=== PATIENT | female | born 1935 | race Caucasian/White ===

== ENCOUNTER 2016-03-02 10:27 | Observation (INO) | payer MEDICARE, OTHER, BC ==
[~2016-03-02] VITALS: Ht 165.1 cm; Wt 108.9 kg
[2016-03-02 12:21] LABS: BASO % 0.5 % (0.0-1.0); EOS # 0.1 K/mm3 (0.0-0.50); EOS % 1.8 % (0.0-3.0); LARGE UNSTAINED CELL # 0.1 K/mm3 (0.0-0.4); LARGE UNSTAINED CELL % 1.3 % (0.0-4.0); LYMPH # 2.2 K/mm3 (1.5-4.5); LYMPH % 32.8 % (24.0-44.0); MEAN CORPUSCULAR HEMOGLOBIN 27.6 pg (27.0-33.0); MEAN CORPUSCULAR HGB CONC 32.8 g/dl (32.0-36.5); MEAN CORPUSCULAR VOLUME 83.9 fl (80.0-96.0); MONO # 0.3 K/mm3 (0.0-0.8); MONO % 3.8 % (0.0-5.0); PLATELET COUNT, AUTOMATED 178 k/mm3 (150-450); RED CELL DISTRIBUTION WIDTH 13.9 % (11.5-14.5); WHITE BLOOD COUNT 6.6 K/mm3 (4.0-10.0)
[2016-03-02 12:27] LABS: ANION GAP 8 MEQ/L (8-16); BLOOD UREA NITROGEN 12 MG/DL (7-18); CALCIUM LEVEL 8.8 MG/DL (8.8-10.2); CARBON DIOXIDE LEVEL 31 MEQ/L (21-32); CHLORIDE LEVEL 106 MEQ/L (98-107); CREATININE FOR GFR 0.81 MG/DL (0.55-1.02); GLOMERULAR FILTRATION RATE > 60.0 (>32); GLUCOSE, FASTING 123 MG/DL (83-110); SODIUM LEVEL 145 MEQ/L (136-145)
[2016-03-02] MEDS ORDERED: ISOVUE-370 76% 100ML VIAL (Q9967) As Ordered ONE (12:56)
[2016-03-02 13:22] LABS: INR 1.19
--- NOTE | 2016-03-02 13:41 | REP ---
Clinical: Evaluate mass. Technique: Axial contrast enhanced images from above the iliac crest through the pubic symphysis with coronal and sagittal re-formations using 100 ml Isovue 370 intravenous contrast material. Findings: There is asymmetric heterogeneous enhancement of the left labia majora with complex appearance including small foci of gas and fat stranding suggesting an infectious process with gas-forming bacteria as well as phlegmonous changes with gas secondary to necrosis. There is no discrete drainable collection and an area of infectious/inflammatory change does not appear to extend into the vagina or uterus. Correlation with physical examination is recommended. Visualized portions of the small large bowel are unremarkable. The bladder appears normal. The uterus appears atrophic with small calcified myomatous changes. No pelvic fluid is appreciated. No significant adenopathy is identified. The surrounding musculoskeletal structures demonstrate symmetric age-related changes. Impression: Findings suggest an infectious/inflammatory process involving the left labia with small foci of gas raising the possibility of necrosis as well as phlegmon/abscess formation secondary to gas forming bacteria. No apparent extension into the vagina or uterus. No further acute pathology is appreciated. Signed by Samson Hood MD 03/02/2016 01:33 P
[2016-03-02] MEDS ORDERED: ASPI325T PO (15:21)
[2016-03-02] MEDS ORDERED: ENAL10TA10 PO (15:21)
[2016-03-02] MEDS ORDERED: PERC5TAB6 PO (15:21)
[2016-03-02] MEDS ORDERED: DRIS50002 PO (15:21)
[2016-03-02] MEDS ORDERED: TRAM50TA2 PO (15:21)
[2016-03-02] MEDS ORDERED: ATOR1TAB19 PO (15:21)
[2016-03-02] MEDS ORDERED: MIDAZOLAM INJ 2 MG/2 ML VIAL (J2250) As Ordered ONE (15:31)
[2016-03-02] MEDS ORDERED: fentaNYL 250 MCG/5 ML INJECTION (J3010) As Ordered ONE (15:32)
[2016-03-02] MEDS ORDERED: PROPOFOL 200 MG/20 ML VIAL As Ordered ONE (15:33)
[2016-03-02] MEDS ORDERED: LIDOCAINE 2% INJ 100 MG/5 ML SDV (FOR ANES.) As Ordered ONE (15:33)
[2016-03-02] MEDS ORDERED: ROCURONIUM BROMIDE 50 MG/5 ML VIAL As Ordered ONE (15:35)
--- NOTE | 2016-03-02 16:09 | EDDOCDS ---
Nurse's Notes [facility] Name: Chula Tadeo Age: 80 yrs Sex: Female : 1935 Arrival Date: 03/02/2016 Time: 10:27 Bed 7 Private MD: Diagnosis: Polyp of vulva-bleeding Presentation: 03/02 10:31 Presenting complaint: EMS states: Vaginal bleeding began last evening. Risk factors: mlb1 The patient reports no loss of conciousness prior to arrival. This patient has not had a hysterectomy. The patient began menopause more than five years ago. Adult Sepsis Screening: The patient does not have new or worsening altered mentation. Patient's respiratory rate is less than 22. Systolic blood pressure is greater than 100. Patient has a qSOFA score of 0- Negative Sepsis Screen. Suicide/Homicide risk assessment- the patient denies having any suicidal and/or homicidal ideations and does not present with any other emotional, behavioral or mental health complaints. Status: Patient is not a bmw service technician or dependent. Transition of care: patient was not received from another setting of care. 10:31 Acuity: MORIAH Level 3 mlb1 10:31 Method Of Arrival: Ambulance mlb1 Triage Assessment: 10:35 General: Appears in no apparent distress, obese, Behavior is appropriate for age, mlb1 cooperative. Pain: Denies pain. The patient is triaged at the bedside. See Assessment in Nurses Notes section of ED record. Neurological: No deficits noted. : Reports vaginal bleeding that is with clots moderate flow. Derm: Skin is pink, warm & dry. normal. Historical: - Allergies: no known allergies; - Home Meds: 1. enalapril-hydrochlorothiazide 10-25 mg oral tab 1 tab once daily (Last dose: 03/02/2016) 2. Lipitor 10 mg Oral tab 1 tab once daily 3. aspirin 325 mg Oral tab 2 tabs once daily (Last dose: 02/29/2016) 4. oxycodone-acetaminophen 5-325 mg Oral tab nightly 5. tramadol 50 mg Oral tab daily as needed - PMHx: Arthritis; Hypertension; High Cholesterol; Cancer, Breast - Left; - Social history: Smoking status: Patient states was never smoker of tobacco. No barriers to communication noted, The patient speaks fluent Pakistani, Speaks appropriately for age. - Family history: Not pertinent. - : The pt / caregiver states he / she is not on anticoagulants. Home medication list is obtained from the patient. - Exposure Risk Screening:: None identified. Screenin:58 Screening information is obtained from the patient. Fall risk: No risks identified. mlb1 Assistance ADL's: requires no assistance with activities of daily living. Abuse/DV Screen: The patient / caregiver reports he/she is: not in a situation that causes fear, pain or injury. Nutritional screening: No deficits noted. home support is adequate. 12:23 Advance Directives: Currently, there is a health care proxy, There is a living will, mlb1 but a copy is not available at this time. Assessment: 10:58 General: Appears in no apparent distress, Behavior is cooperative, pleasant. Pain: mlb1 Denies pain. Neurological: Level of Consciousness is awake, alert, Oriented to person, place, time. : Reports vaginal bleeding that is with clots moderate flow. Derm: Skin is pink, warm & dry. normal. 12:00 General: Appears in no apparent distress, comfortable, Behavior is appropriate for age, mlb1 cooperative. Pain: Denies pain. Neurological: No deficits noted. Derm: Skin is pink, warm & dry. normal. 12:23 General: Appears in no apparent distress, comfortable, Behavior is appropriate for age, mlb1 cooperative, pleasant, quiet. Pain: Denies pain. 13:14 General: Appears in no apparent distress, comfortable, Behavior is appropriate for age, mlb1 cooperative. Pain: Denies pain. Neurological: No deficits noted. 13:32 General: pt cleaned and wound dressing reinforced. Moderate bleeding noted. Clotting ttb noted. JUNIOR HIGH SCHOOL TEACHER aware. Primary RN aware. Pt resting on stretcher with family at bedside. NAD noted.. 14:30 General: Appears in no apparent distress, comfortable, Behavior is appropriate for age, mlb1 cooperative. Pain: Denies pain. Respiratory: Airway is patent Respiratory effort is even, unlabored. Derm: Skin is pink, warm & dry. normal. 14:51 General: Appears in no apparent distress, comfortable, Behavior is appropriate for age, mlb1 cooperative. Pain: Denies pain. Neurological: No deficits noted. Respiratory: Airway is patent Respiratory effort is even, unlabored. Derm: Skin is pink, warm & dry. normal. 14:58 General: Dr. Olsen at bedside. . kc3 15:30 General: Appears in no apparent distress, comfortable, Behavior is appropriate for age, kc3 cooperative. Pain: Denies pain. Neurological: Level of Consciousness is awake, alert, obeys commands, Oriented to person, place, time. Respiratory: Airway is patent Respiratory effort is even, unlabored. Derm: Skin is pink, warm & dry. Musculoskeletal: Circulation, motion, and sensation intact. 16:01 General: Appears in no apparent distress, comfortable, Behavior is appropriate for age, kc3 cooperative. Pain: Denies pain. Neurological: Level of Consciousness is awake, alert, obeys commands, Oriented to person, place, time. Respiratory: Airway is patent Respiratory effort is even, unlabored. Derm: Skin is pink, warm & dry. bleeding lesion noted to left vulvar. Musculoskeletal: Circulation, motion, and sensation intact. Vital Signs: 10:38 BP 159 / 75 RA Supine (auto/lg); Pulse 111 LA; Resp 18; Temp 97.9(O); Pulse Ox 96% on tk R/A; Weight 108.86 kg; Height 5 ft. 5 in. (165.10 cm); Pain 0/10; 13:33 BP 140 / 66; Pulse 109; Resp 20; Pulse Ox 98% on R/A; ttb 16:04 BP 126 / 64; Pulse 104; Resp 18; Temp 98.1(O); Pulse Ox 96% on R/A; Pain 0/10; kc3 10:38 Body Mass Index 39.94 (108.86 kg, 165.10 cm) tk Vitals: 10:58 Log In Time N/A - ambulance arrival. mlb1 ED Course: 10:28 Patient visited by Juanis Mohr, Kiln Remover. deg 10:28 Patient moved to Waiting deg 10:31 Patient visited by Estevan Pratt, RN. mlb1 10:31 Patient moved to 7 mlb1 10:34 Triage Initiated mlb1 10:40 Patient visited by Shilo Willoughby. tk 10:59 Patient visited by Estevan Pratt, DWIGHT. mlb1 10:59 The patient / caregiver is instructed regarding the plan of care and ED course. mlb1 Accompanied by Family Member, Patient has correct armband on for positive identification. Placed in gown. Bed in low position. Call light in reach. Side rails up X2. 10:59 Inserted saline lock: 20 gauge in right antecubital area and blood collected. The mlb1 patient tolerated the procedure well. No procedures done that require assistance. 12:00 Patient visited by Estevan Pratt RN. mlb1 12:03 [facility] le 12:07 Patient visited by Flower Prakash FNP. le 12:15 Type & Screen Sent. mlb1 12:15 BMP Sent. mlb1 12:15 CBC with Diff Sent. mlb1 12:24 Patient visited by Estevna Pratt, DWIGHT. mlb1 12:50 Patient visited by Solange Dempsey PCA. rs6 12:50 Pt greeted and oriented to ED. Patient advised of names of staff involved in care, rs6 location of call landa, wait times and NPO status. Linen changed. 12:59 PTT Sent. mlb1 12:59 PT/INR Sent. mlb1 13:14 Patient visited by Estevan Pratt RN. mlb1 13:38 Patient visited by Micaela Dao RN. ttb 13:48 CT Pelvis With Contrast Returned. EDMS 13:51 Patient name changed from Chula\S\\S\Surdo\S\ to Chula\S\ \S\Surdo. EDMS 13:54 [facility] Payment Agreement was scanned into [employer] and attached to record. jp5 14:51 Patient visited by Estevan Pratt RN. mlb1 14:52 Patient visited by Estevan Pratt, DWIGHT. mlb1 15:09 Melvin Olsen MD is Hospitalizing Provider. le 15:39 Admission Orders was scanned into [employer] and attached to record. deg Administered Medications: 13:32 Drug: NS 0.9% 1000 ml [sodium chloride 0.9 % intravenous solution] Route: IV; Rate: ttb bolus; Site: right antecubital; Order Results: Lab Order: CBC with Diff; SPEC'M 03/02/16 10:55 Test: WHITE BLOOD COUNT; Value: 6.6; Range: 4.0-10.0; Units: K/mm3; Status: F Test: RED BLOOD COUNT; Value: 6.53; Range: 4.00-5.40; Abnormal: Above high normal; Units: M/mm3; Status: F Test: HEMOGLOBIN; Value: 18.0; Range: 12.0-16.0; Abnormal: Above high normal; Units: g/dl; Status: F Test: HEMATOCRIT; Value: 54.8; Range: 36.0-47.0; Abnormal: Above high normal; Units: %; Status: F Test: MEAN CORPUSCULAR VOLUME; Value: 83.9; Range: 80.0-96.0; Units: fl; Status: F Test: MEAN CORPUSCULAR HEMOGLOBIN; Value: 27.6; Range: 27.0-33.0; Units: pg; Status: F Test: MEAN CORPUSCULAR HGB CONC; Value: 32.8; Range: 32.0-36.5; Units: g/dl; Status: F Test: RED CELL DISTRIBUTION WIDTH; Value: 13.9; Range: 11.5-14.5; Units: %; Status: F Test: PLATELET COUNT, AUTOMATED; Value: 178; Range: 150-450; Units: k/mm3; Status: F Test: NEUTROPHILS %; Value: 60.0; Range: 36.0-66.0; Units: %; Status: F Test: LYMPH %; Value: 32.8; Range: 24.0-44.0; Units: %; Status: F Test: MONO %; Value: 3.8; Range: 0.0-5.0; Units: %; Status: F Test: EOS %; Value: 1.8; Range: 0.0-3.0; Units: %; Status: F Test: BASO %; Value: 0.5; Range: 0.0-1.0; Units: %; Status: F Test: LARGE UNSTAINED CELL %; Value: 1.3; Range: 0.0-4.0; Units: %; Status: F Test: NEUTROPHILS #; Value: 4.0; Range: 1.8-7.7; Units: K/mm3; Status: F Test: LYMPH #; Value: 2.2; Range: 1.5-4.5; Units: K/mm3; Status: F Test: MONO #; Value: 0.3; Range: 0.0-0.8; Units: K/mm3; Status: F Test: EOS #; Value: 0.1; Range: 0.0-0.50; Units: K/mm3; Status: F Test: BASO #; Value: 0.0; Range: 0.0-0.2; Units: K/mm3; Status: F Test: LARGE UNSTAINED CELL #; Value: 0.1; Range: 0.0-0.4; Units: K/mm3; Status: F Lab Order: BMP; SPEC'03/02/16 10:55 Test: GLUCOSE, FASTING; Value: 123; Range: 83-110; Abnormal: Above high normal; Units: MG/DL; Status: F Test: BLOOD UREA NITROGEN; Value: 12; Range: 7-18; Units: MG/DL; Status: F Test: CREATININE FOR GFR; Value: 0.81; Range: 0.55-1.02; Units: MG/DL; Status: F Test: GLOMERULAR FILTRATION RATE; Value: > 60.0; Range: >32; Status: F Test: SODIUM LEVEL; Value: 145; Range: 136-145; Units: MEQ/L; Status: F Test: POTASSIUM SERUM; Value: 4.0; Range: 3.5-5.1; Units: MEQ/L; Status: F Test: CHLORIDE LEVEL; Value: 106; Range: 98-107; Units: MEQ/L; Status: F Test: CARBON DIOXIDE LEVEL; Value: 31; Range: 21-32; Units: MEQ/L; Status: F Test: ANION GAP; Value: 8; Range: 8-16; Units: MEQ/L; Status: F Test: CALCIUM LEVEL; Value: 8.8; Range: 8.8-10.2; Units: MG/DL; Status: F Test Note: ; Units are mL/min/1.73 m2 Chronic Kidney Disease Staging per NKF: Stage I & II GFR >=60 Normal to Mildly Decreased Stage III GFR 30-59 Moderately Decreased Stage IV GFR 15-29 Severely Decreased Stage V GFR <15 Very Little GFR Left ESRD GFR <15 on TACKER OFF Lab Order: Type & Screen; SPEC03/02/16 10:55 Test: BLOOD TYPE; Value: O POS; Status: F Test: AB SCREEN (INDIRECT ELIZABETH)GEL; Value: NEGATIVE; Status: F Lab Order: PT/INR; SPEC'03/02/16 12:58 Test: PROTHROMBIN TIME; Value: 15.2; Range: 12.3-14.5; Abnormal: Above high normal; Units: SECONDS; Status: F Test: INR; Value: 1.19; Status: F Test Note: ; THERAPUTIC HUMAN INR VALUES INDICATIONS NORMAL RANGES PROPHYLAXIS/TREATMENT OF: VENOUS THROMBOSIS 2.0-3.0 PULMONARY EMBOLISM 2.0-3.0 PREVENTION OF SYSTEMIC EMBOLISM FROM: TISSUE HEART VALVES 2.0-3.0 ACUTE MYOCARDIAL INFARCTION 2.0-3.0 VALVULAR HEART DISEASE 2.0-3.0 ATRIAL FIBRILLATION 2.0-3.0 MECHANICAL VALVES(HIGH RISK) 2.5-3.5 RECURRENT MYOCARDIAL INFARCTION 2.5-3.5 Lab Order: PTT; SPEC'M 03/02/16 12:58 Test: PARTIAL THROMBOPLASTIN TIME; Value: 30.8; Range: 26.6-37.1; Units: SECONDS; Status: F Radiology Order: CT Pelvis With Contrast Test: CT Pelvis With Contrast REASON FOR EXAMINATION: eval for mass/tumor (external bleeding lesions); Clinical: Evaluate mass.; ; Technique: Axial contrast enhanced images from above the iliac crest through the; pubic symphysis with coronal and sagittal re-formations using 100 ml Isovue 370; intravenous contrast material.; ; Findings:; There is asymmetric heterogeneous enhancement of the left labia majora with; complex appearance including small foci of gas and fat stranding suggesting an; infectious process with gas-forming bacteria as well as phlegmonous changes with; gas secondary to necrosis. There is no discrete drainable collection and an area; of infectious/inflammatory change does not appear to extend into the vagina or; uterus. Correlation with physical examination is recommended.; ; Visualized portions of the small large bowel are unremarkable. The bladder; appears normal. The uterus appears atrophic with small calcified myomatous; changes. No pelvic fluid is appreciated. No significant adenopathy is; identified. The surrounding musculoskeletal structures demonstrate symmetric; age-related changes.; ; Impression:; Findings suggest an infectious/inflammatory process involving the left labia with; small foci of gas raising the possibility of necrosis as well as phlegmon/abscess; formation secondary to gas forming bacteria. No apparent extension into the; vagina or uterus. No further acute pathology is appreciated.; ; ; Signed by; Samson Hood MD 03/02/2016 01:33 P; Outcome: 15:09 Decision to Hospitalize by Provider. patricia 16:04 Discharge Assessment: patient administered narcotics - no. The following High Risk kc3 Discharge criteria are identified: None. Admitted to OR accompanied by nurse, via stretcher, with chart. Condition: stable. CT Study completed. Property :Personal belongings accompany Pt. 16:08 Patient left the ED. kc3 Signatures: Dispatcher [employer] EDMS Juanis Mohr, Kiln Remover Unit deg Estevan Pratt RN RN mlb1 Flower Prakash, EDUCATIONAL PSYCHOLOGIST EDUCATIONAL PSYCHOLOGIST Micaela Monzon, RN RN ttb Solange Dempsey, FINE GRADE BULLDOZER OPERATOR FINE GRADE BULLDOZER OPERATOR rs6 Rom Mccormack Timothy tk Crane, Kelsi,RN RN kc3 Corrections: (The following items were deleted from the chart) 12:23 10:58 Advance Directives: Currently, there is no health care proxy. mlb1 mlb1 MTDD
--- NOTE | 2016-03-02 16:09 | EDDOCDS ---
Physician Documentation [facility] Name: Chula Tadeo Age: 80 yrs Sex: Female : 1935 Arrival Date: 03/02/2016 Time: 10:27 Bed 7 Private MD: Disposition: 03/02/16 15:09 Hospitalization ordered by Melvin Olsen for Observation. Preliminary diagnosis is Polyp of vulva - bleeding. - Bed requested for Admit. - Status is Observation. kc3 - Condition is Stable. - Problem is new. - Symptoms are unchanged. Historical: - Allergies: no known allergies; - Home Meds: 1. enalapril-hydrochlorothiazide 10-25 mg oral tab 1 tab once daily (Last dose: 03/02/2016) 2. Lipitor 10 mg Oral tab 1 tab once daily 3. aspirin 325 mg Oral tab 2 tabs once daily (Last dose: 02/29/2016) 4. oxycodone-acetaminophen 5-325 mg Oral tab nightly 5. tramadol 50 mg Oral tab daily as needed - PMHx: Arthritis; Hypertension; High Cholesterol; Cancer, Breast - Left; - Social history: Smoking status: Patient states was never smoker of tobacco. No barriers to communication noted, The patient speaks fluent Belarusian, Speaks appropriately for age. - Family history: Not pertinent. - : The pt / caregiver states he / she is not on anticoagulants. Home medication list is obtained from the patient. - Exposure Risk Screening:: None identified. Vital Signs: 03/02 10:38 BP 159 / 75 RA Supine (auto/lg); Pulse 111 LA; Resp 18; Temp 97.9(O); Pulse Ox 96% on tk R/A; Weight 108.86 kg / 240 lbs; Height 5 ft. 5 in. (165.10 cm); Pain 0/10; 13:33 BP 140 / 66; Pulse 109; Resp 20; Pulse Ox 98% on R/A; ttb 16:04 BP 126 / 64; Pulse 104; Resp 18; Temp 98.1(O); Pulse Ox 96% on R/A; Pain 0/10; kc3 10:38 Body Mass Index 39.94 (108.86 kg, 165.10 cm) tk MDM: 12:13 Set up pelvic ordered. le 12:14 CBC with Diff Ordered. EDMS 12:14 BMP Ordered. EDMS 12:14 Type & Screen Ordered. EDMS 12:51 IV Saline Lock ordered. le 12:51 CBC with Diff Reviewed. le 12:51 BMP Reviewed. le 12:51 Type & Screen Reviewed. le 12:52 PT/INR Ordered. EDMS 12:52 PTT Ordered. EDMS 12:52 CT Pelvis With Contrast Ordered. EDMS 12:52 NS 0.9% 1000 ml IV at bolus once ordered. le 13:54 [facility] Payment Agreement was scanned into [employer] and attached to record. jp5 13:54 Financial registration complete. jp5 14:05 PT/INR Reviewed. le 14:05 Type & Screen Reviewed. le 14:05 PTT Reviewed. le 14:05 CT Pelvis With Contrast Reviewed. le 14:22 BED REQUEST+ADM ordered. EDMS 15:39 Admission Orders was scanned into [employer] and attached to record. deg Administered Medications: 13:32 Drug: NS 0.9% 1000 ml [sodium chloride 0.9 % intravenous solution] Route: IV; Rate: ttb bolus; Site: right antecubital; Signatures: Dispatcher [employer] EDMS Juanis Mohr, Grout Pump Operator Unit deg Estevan Pratt RN RN mlb1 Flower Prakash, REHEATER REHEATER Rom Castelan jp5 Leta Solis,RN RN kc3 Micaela Dao RN ttb The chart was reviewed and I authenticate all verbal orders and agree with the evaluation and treatment provided.Attachments: 13:54 [facility] Payment Agreement jp5 15:39 Admission Orders deg MTDD
[2016-03-02] MEDS ORDERED: LIDOCAINE 1% SDV INJ 30 ML VIAL As Ordered ONE (16:44)
[2016-03-02] MEDS ORDERED: ceFAZolin 2 GM/D5W 50 ML IV BAG (J0690) As Ordered ONE (17:00)
[2016-03-02] MEDS ORDERED: ONDANSETRON 4MG/2ML VIAL (J2405) As Ordered ONE (17:11)
[2016-03-02] MEDS ORDERED: LIDOCAINE 1% SDV INJ 30 ML VIAL SC ONE (17:35)
[2016-03-02] MEDS ORDERED: fentaNYL 100 MCG/2 ML INJECTION (J3010) IV PRN (17:45)
[2016-03-02] MEDS ORDERED: LR 1,000 ML IV SCH (17:45)
[2016-03-02] MEDS ORDERED: ONDANSETRON 4MG/2ML VIAL (J2405) IV PRN (17:45)
[2016-03-02] MEDS ORDERED: MORPHINE 2 MG/ML 1ML SYRINGE IV PRN (17:45)
[2016-03-02] MEDS ORDERED: PERCOCET 5MG/325MG TAB PO PRN (18:00)
[2016-03-02 18:30] VITALS: BP 133/75
[2016-03-02 19:00] VITALS: BP 144/80
[2016-03-02] MEDS: LR 1,000 ML IV SCH (19:00)
[2016-03-02 20:00] VITALS: BP 125/67
[2016-03-02 21:00] VITALS: BP 135/63
[2016-03-02] MEDS ORDERED: ATORVASTATIN 10 MG TAB PO SCH (21:00)
[2016-03-02 22:00] VITALS: BP 131/68
[2016-03-02 23:00] VITALS: BP 125/63
[2016-03-03 02:00] VITALS: BP 114/69
[2016-03-03] MEDS: LR 1,000 ML IV SCH ×2 (03:00→11:00)
[2016-03-03 06:00] VITALS: BP 121/68
--- NOTE | 2016-03-03 07:01 | RO ---
DATE OF PROCEDURE: 03/02/2016 PREPROCEDURE DIAGNOSIS: Vulvar mass with hemorrhage. POSTPROCEDURE DIAGNOSIS: Vulvar mass with hemorrhage. PROCEDURE: Excision of vulvar mass. SURGEON: Dr. Melvin Olsen HOGSHEAD PACKER: ANESTHESIA: Local with sedation. ESTIMATED BLOOD LOSS: Minimal. FINDINGS: 1.5 cm exophytic left labia majora mass with heavy bleeding coming from the mass. Upon further inspection of the inner labia and vagina, there were numerous varicose veins scattered throughout the area. DESCRIPTION OF PROCEDURE: The patient was taken to the operating room where IV sedation was given. She was prepped and draped in sterile fashion in the supine position with her legs bent. The area of the mass was injected with 15 mL of 1% lidocaine. An Allis clamp was used to grasp the mass at its base. The scalpel was used to excise an elliptical area of skin around the mass down through the dermis. The mass was removed in its entirety. Interrupted sutures of #3-0 Vicryl were used to close the defect. Good hemostasis was noted. A Pitt catheter was placed. Sponge, needle and instrument counts were correct.
[2016-03-03] MEDS ORDERED: traMADol 50 MG TAB PO SCH (09:00)
[2016-03-03] MEDS ORDERED: hydroCHLOROthiazide 25 MG TAB PO SCH (09:00)
[2016-03-03] MEDS ORDERED: ENALAPRIL MALEATE 10 MG TAB PO SCH (09:00)
[2016-03-03 09:57] VITALS: BP 115/70
--- NOTE | 2016-03-04 17:09 | EDDOCDS ---
Physician Documentation [facility] Name: Chula Tadeo Age: 80 yrs Sex: Female : 1935 Arrival Date: 03/02/2016 Time: 10:27 Bed 7 Private MD: Disposition: 03/02/16 15:09 Hospitalization ordered by Melvin Olsen for Observation. Preliminary diagnosis is Polyp of vulva - bleeding. - Bed requested for Admit. - Status is Observation. kc3 - Condition is Stable. - Problem is new. - Symptoms are unchanged. Historical: - Allergies: no known allergies; - Home Meds: 1. enalapril-hydrochlorothiazide 10-25 mg oral tab 1 tab once daily (Last dose: 03/02/2016) 2. Lipitor 10 mg Oral tab 1 tab once daily 3. aspirin 325 mg Oral tab 2 tabs once daily (Last dose: 02/29/2016) 4. oxycodone-acetaminophen 5-325 mg Oral tab nightly 5. tramadol 50 mg Oral tab daily as needed - PMHx: Arthritis; Hypertension; High Cholesterol; Cancer, Breast - Left; - Social history: Smoking status: Patient states was never smoker of tobacco. No barriers to communication noted, The patient speaks fluent Spanish, Speaks appropriately for age. - Family history: Not pertinent. - : The pt / caregiver states he / she is not on anticoagulants. Home medication list is obtained from the patient. - Exposure Risk Screening:: None identified. Vital Signs: 03/02 10:38 BP 159 / 75 RA Supine (auto/lg); Pulse 111 LA; Resp 18; Temp 97.9(O); Pulse Ox 96% on tk R/A; Weight 108.86 kg / 240 lbs; Height 5 ft. 5 in. (165.10 cm); Pain 0/10; 13:33 BP 140 / 66; Pulse 109; Resp 20; Pulse Ox 98% on R/A; ttb 16:04 BP 126 / 64; Pulse 104; Resp 18; Temp 98.1(O); Pulse Ox 96% on R/A; Pain 0/10; kc3 10:38 Body Mass Index 39.94 (108.86 kg, 165.10 cm) tk MDM: 12:13 Set up pelvic ordered. le 12:14 CBC with Diff Ordered. EDMS 12:14 BMP Ordered. EDMS 12:14 Type & Screen Ordered. EDMS 12:51 IV Saline Lock ordered. le 12:51 CBC with Diff Reviewed. le 12:51 BMP Reviewed. le 12:51 Type & Screen Reviewed. le 12:52 PT/INR Ordered. EDMS 12:52 PTT Ordered. EDMS 12:52 CT Pelvis With Contrast Ordered. EDMS 12:52 NS 0.9% 1000 ml IV at bolus once ordered. le 13:54 [facility] Payment Agreement was scanned into [email or web address] and attached to record. jp5 13:54 Financial registration complete. jp5 14:05 PT/INR Reviewed. le 14:05 Type & Screen Reviewed. le 14:05 PTT Reviewed. le 14:05 CT Pelvis With Contrast Reviewed. le 14:22 BED REQUEST+ADM ordered. EDMS 15:39 Admission Orders was scanned into [email or web address] and attached to record. deg 22:42 T-Sheet-- Draft Copy was scanned into [email or web address] and attached to record. klr Administered Medications: 13:32 Drug: NS 0.9% 1000 ml [sodium chloride 0.9 % intravenous solution] Route: IV; Rate: ttb bolus; Site: right antecubital; Signatures: Dispatcher [employer] EDMS Juanis Mohr, Die Inspector Unit deg Estevan Pratt, RN RN mlb1 Flower Prakash, AGILE SCRUM COACH AGILE SCRUM COACH Rom Castelan jp5 Leta Solis,RN RN kc3 Yaneli Malone Teresa RN ttb The chart was reviewed and I authenticate all verbal orders and agree with the evaluation and treatment provided.Attachments: 13:54 [facility] Payment Agreement [facility] 15:39 Admission Orders deg 22:42 T-Sheet-- Draft Copy klr Chart Complete MTDD
--- NOTE | 2016-03-04 17:09 | EDDOCDS ---
Physician Documentation [facility] Name: Chula Tadeo Age: 80 yrs Sex: Female : 1935 Arrival Date: 03/02/2016 Time: 10:27 Bed 7 Private MD: Disposition: 03/02/16 15:09 Hospitalization ordered by Melvin Olsen for Observation. Preliminary diagnosis is Polyp of vulva - bleeding. - Bed requested for Admit. - Status is Observation. kc3 - Condition is Stable. - Problem is new. - Symptoms are unchanged. Historical: - Allergies: no known allergies; - Home Meds: 1. enalapril-hydrochlorothiazide 10-25 mg oral tab 1 tab once daily (Last dose: 03/02/2016) 2. Lipitor 10 mg Oral tab 1 tab once daily 3. aspirin 325 mg Oral tab 2 tabs once daily (Last dose: 02/29/2016) 4. oxycodone-acetaminophen 5-325 mg Oral tab nightly 5. tramadol 50 mg Oral tab daily as needed - PMHx: Arthritis; Hypertension; High Cholesterol; Cancer, Breast - Left; - Social history: Smoking status: Patient states was never smoker of tobacco. No barriers to communication noted, The patient speaks fluent Amharic, Speaks appropriately for age. - Family history: Not pertinent. - : The pt / caregiver states he / she is not on anticoagulants. Home medication list is obtained from the patient. - Exposure Risk Screening:: None identified. Vital Signs: 03/02 10:38 BP 159 / 75 RA Supine (auto/lg); Pulse 111 LA; Resp 18; Temp 97.9(O); Pulse Ox 96% on tk R/A; Weight 108.86 kg / 240 lbs; Height 5 ft. 5 in. (165.10 cm); Pain 0/10; 13:33 BP 140 / 66; Pulse 109; Resp 20; Pulse Ox 98% on R/A; ttb 16:04 BP 126 / 64; Pulse 104; Resp 18; Temp 98.1(O); Pulse Ox 96% on R/A; Pain 0/10; kc3 10:38 Body Mass Index 39.94 (108.86 kg, 165.10 cm) tk MDM: 12:13 Set up pelvic ordered. le 12:14 CBC with Diff Ordered. EDMS 12:14 BMP Ordered. EDMS 12:14 Type & Screen Ordered. EDMS 12:51 IV Saline Lock ordered. le 12:51 CBC with Diff Reviewed. le 12:51 BMP Reviewed. le 12:51 Type & Screen Reviewed. le 12:52 PT/INR Ordered. EDMS 12:52 PTT Ordered. EDMS 12:52 CT Pelvis With Contrast Ordered. EDMS 12:52 NS 0.9% 1000 ml IV at bolus once ordered. le 13:54 [facility] Payment Agreement was scanned into [employer] and attached to record. jp5 13:54 Financial registration complete. jp5 14:05 PT/INR Reviewed. le 14:05 Type & Screen Reviewed. le 14:05 PTT Reviewed. le 14:05 CT Pelvis With Contrast Reviewed. le 14:22 BED REQUEST+ADM ordered. EDMS 15:39 Admission Orders was scanned into [employer] and attached to record. deg 22:42 T-Sheet-- Draft Copy was scanned into [employer] and attached to record. klr Administered Medications: 13:32 Drug: NS 0.9% 1000 ml [sodium chloride 0.9 % intravenous solution] Route: IV; Rate: ttb bolus; Site: right antecubital; Signatures: Dispatcher [employer] EDMS Juanis Mohr, Drill Doctor Unit deg Estevan Pratt, RN RN mlb1 Flower Prakash, EXECUTIVE WELLNESS PROGRAMS DIRECTOR EXECUTIVE WELLNESS PROGRAMS DIRECTOR Rom Castelan jp5 Leta Solis,RN RN kc3 Yaneli Malone Teresa RN ttb The chart was reviewed and I authenticate all verbal orders and agree with the evaluation and treatment provided.Attachments: 13:54 [facility] Payment Agreement [facility] 15:39 Admission Orders deg 22:42 T-Sheet-- Draft Copy klr Chart Complete MTDD
--- NOTE | 2016-03-04 17:09 | EDDOCDS ---
Nurse's Notes [facility] Name: Chula Tadeo Age: 80 yrs Sex: Female : 1935 Arrival Date: 03/02/2016 Time: 10:27 Bed 7 Private MD: Diagnosis: Polyp of vulva-bleeding Presentation: 03/02 10:31 Presenting complaint: EMS states: Vaginal bleeding began last evening. Risk factors: mlb1 The patient reports no loss of conciousness prior to arrival. This patient has not had a hysterectomy. The patient began menopause more than five years ago. Adult Sepsis Screening: The patient does not have new or worsening altered mentation. Patient's respiratory rate is less than 22. Systolic blood pressure is greater than 100. Patient has a qSOFA score of 0- Negative Sepsis Screen. Suicide/Homicide risk assessment- the patient denies having any suicidal and/or homicidal ideations and does not present with any other emotional, behavioral or mental health complaints. Status: Patient is not a media services specialist or dependent. Transition of care: patient was not received from another setting of care. 10:31 Acuity: MORIAH Level 3 mlb1 10:31 Method Of Arrival: Ambulance mlb1 Triage Assessment: 10:35 General: Appears in no apparent distress, obese, Behavior is appropriate for age, mlb1 cooperative. Pain: Denies pain. The patient is triaged at the bedside. See Assessment in Nurses Notes section of ED record. Neurological: No deficits noted. : Reports vaginal bleeding that is with clots moderate flow. Derm: Skin is pink, warm & dry. normal. Historical: - Allergies: no known allergies; - Home Meds: 1. enalapril-hydrochlorothiazide 10-25 mg oral tab 1 tab once daily (Last dose: 03/02/2016) 2. Lipitor 10 mg Oral tab 1 tab once daily 3. aspirin 325 mg Oral tab 2 tabs once daily (Last dose: 02/29/2016) 4. oxycodone-acetaminophen 5-325 mg Oral tab nightly 5. tramadol 50 mg Oral tab daily as needed - PMHx: Arthritis; Hypertension; High Cholesterol; Cancer, Breast - Left; - Social history: Smoking status: Patient states was never smoker of tobacco. No barriers to communication noted, The patient speaks fluent S[place]omean, Speaks appropriately for age. - Family history: Not pertinent. - : The pt / caregiver states he / she is not on anticoagulants. Home medication list is obtained from the patient. - Exposure Risk Screening:: None identified. Screenin:58 Screening information is obtained from the patient. Fall risk: No risks identified. mlb1 Assistance ADL's: requires no assistance with activities of daily living. Abuse/DV Screen: The patient / caregiver reports he/she is: not in a situation that causes fear, pain or injury. Nutritional screening: No deficits noted. home support is adequate. 12:23 Advance Directives: Currently, there is a health care proxy, There is a living will, mlb1 but a copy is not available at this time. Assessment: 10:58 General: Appears in no apparent distress, Behavior is cooperative, pleasant. Pain: mlb1 Denies pain. Neurological: Level of Consciousness is awake, alert, Oriented to person, place, time. : Reports vaginal bleeding that is with clots moderate flow. Derm: Skin is pink, warm & dry. normal. 12:00 General: Appears in no apparent distress, comfortable, Behavior is appropriate for age, mlb1 cooperative. Pain: Denies pain. Neurological: No deficits noted. Derm: Skin is pink, warm & dry. normal. 12:23 General: Appears in no apparent distress, comfortable, Behavior is appropriate for age, mlb1 cooperative, pleasant, quiet. Pain: Denies pain. 13:14 General: Appears in no apparent distress, comfortable, Behavior is appropriate for age, mlb1 cooperative. Pain: Denies pain. Neurological: No deficits noted. 13:32 General: pt cleaned and wound dressing reinforced. Moderate bleeding noted. Clotting ttb noted. CAREER SERVICES OFFICER aware. Primary RN aware. Pt resting on stretcher with family at bedside. NAD noted.. 14:30 General: Appears in no apparent distress, comfortable, Behavior is appropriate for age, mlb1 cooperative. Pain: Denies pain. Respiratory: Airway is patent Respiratory effort is even, unlabored. Derm: Skin is pink, warm & dry. normal. 14:51 General: Appears in no apparent distress, comfortable, Behavior is appropriate for age, mlb1 cooperative. Pain: Denies pain. Neurological: No deficits noted. Respiratory: Airway is patent Respiratory effort is even, unlabored. Derm: Skin is pink, warm & dry. normal. 14:58 General: Dr. Olsen at bedside. . kc3 15:30 General: Appears in no apparent distress, comfortable, Behavior is appropriate for age, kc3 cooperative. Pain: Denies pain. Neurological: Level of Consciousness is awake, alert, obeys commands, Oriented to person, place, time. Respiratory: Airway is patent Respiratory effort is even, unlabored. Derm: Skin is pink, warm & dry. Musculoskeletal: Circulation, motion, and sensation intact. 16:01 General: Appears in no apparent distress, comfortable, Behavior is appropriate for age, kc3 cooperative. Pain: Denies pain. Neurological: Level of Consciousness is awake, alert, obeys commands, Oriented to person, place, time. Respiratory: Airway is patent Respiratory effort is even, unlabored. Derm: Skin is pink, warm & dry. bleeding lesion noted to left vulvar. Musculoskeletal: Circulation, motion, and sensation intact. Vital Signs: 10:38 BP 159 / 75 RA Supine (auto/lg); Pulse 111 LA; Resp 18; Temp 97.9(O); Pulse Ox 96% on tk R/A; Weight 108.86 kg; Height 5 ft. 5 in. (165.10 cm); Pain 0/10; 13:33 BP 140 / 66; Pulse 109; Resp 20; Pulse Ox 98% on R/A; ttb 16:04 BP 126 / 64; Pulse 104; Resp 18; Temp 98.1(O); Pulse Ox 96% on R/A; Pain 0/10; kc3 10:38 Body Mass Index 39.94 (108.86 kg, 165.10 cm) tk Vitals: 10:58 Log In Time N/A - ambulance arrival. mlb1 ED Course: 10:28 Patient visited by Juanis Mohr, Sock Lining Examiner. deg 10:28 Patient moved to Waiting deg 10:31 Patient visited by Estevan Pratt, RN. mlb1 10:31 Patient moved to 7 mlb1 10:34 Triage Initiated mlb1 10:40 Patient visited by Shilo Willoughby. tk 10:59 Patient visited by Estevan Pratt, DWIGHT. mlb1 10:59 The patient / caregiver is instructed regarding the plan of care and ED course. mlb1 Accompanied by Family Member, Patient has correct armband on for positive identification. Placed in gown. Bed in low position. Call light in reach. Side rails up X2. 10:59 Inserted saline lock: 20 gauge in right antecubital area and blood collected. The mlb1 patient tolerated the procedure well. No procedures done that require assistance. 12:00 Patient visited by Estevan Pratt RN. mlb1 12:03 [facility] le 12:07 Patient visited by Flower Prakash FNP. le 12:15 Type & Screen Sent. mlb1 12:15 BMP Sent. mlb1 12:15 CBC with Diff Sent. mlb1 12:24 Patient visited by Estevan Pratt, DWIGHT. mlb1 12:50 Patient visited by Solange Dempsey PCA. rs6 12:50 Pt greeted and oriented to ED. Patient advised of names of staff involved in care, rs6 location of call landa, wait times and NPO status. Linen changed. 12:59 PTT Sent. mlb1 12:59 PT/INR Sent. mlb1 13:14 Patient visited by Estevan Pratt RN. mlb1 13:38 Patient visited by Micaela Dao RN. ttb 13:48 CT Pelvis With Contrast Returned. EDMS 13:51 Patient name changed from Chula\S\\S\Surdo\S\ to Chula\S\ \S\Surdo. EDMS 13:54 [facility] [place] was scanned into [employer] and attached to record. jp5 14:51 Patient visited by Estevan Pratt RN. mlb1 14:52 Patient visited by Estevan Pratt, DWIGTH. mlb1 15:09 Melvin Olsen MD is Hospitalizing Provider. le 15:39 Admission Orders was scanned into [employer] and attached to record. deg 22:42 T-Sheet-- Draft Copy was scanned into [employer] and attached to record. klr Administered Medications: 13:32 Drug: NS 0.9% 1000 ml [sodium chloride 0.9 % intravenous solution] Route: IV; Rate: ttb bolus; Site: right antecubital; Order Results: Lab Order: CBC with Diff; SPEC'M 03/02/16 10:55 Test: WHITE BLOOD COUNT; Value: 6.6; Range: 4.0-10.0; Units: K/mm3; Status: F Test: RED BLOOD COUNT; Value: 6.53; Range: 4.00-5.40; Abnormal: Above high normal; Units: M/mm3; Status: F Test: HEMOGLOBIN; Value: 18.0; Range: 12.0-16.0; Abnormal: Above high normal; Units: g/dl; Status: F Test: HEMATOCRIT; Value: 54.8; Range: 36.0-47.0; Abnormal: Above high normal; Units: %; Status: F Test: MEAN CORPUSCULAR VOLUME; Value: 83.9; Range: 80.0-96.0; Units: fl; Status: F Test: MEAN CORPUSCULAR HEMOGLOBIN; Value: 27.6; Range: 27.0-33.0; Units: pg; Status: F Test: MEAN CORPUSCULAR HGB CONC; Value: 32.8; Range: 32.0-36.5; Units: g/dl; Status: F Test: RED CELL DISTRIBUTION WIDTH; Value: 13.9; Range: 11.5-14.5; Units: %; Status: F Test: PLATELET COUNT, AUTOMATED; Value: 178; Range: 150-450; Units: k/mm3; Status: F Test: NEUTROPHILS %; Value: 60.0; Range: 36.0-66.0; Units: %; Status: F Test: LYMPH %; Value: 32.8; Range: 24.0-44.0; Units: %; Status: F Test: MONO %; Value: 3.8; Range: 0.0-5.0; Units: %; Status: F Test: EOS %; Value: 1.8; Range: 0.0-3.0; Units: %; Status: F Test: BASO %; Value: 0.5; Range: 0.0-1.0; Units: %; Status: F Test: LARGE UNSTAINED CELL %; Value: 1.3; Range: 0.0-4.0; Units: %; Status: F Test: NEUTROPHILS #; Value: 4.0; Range: 1.8-7.7; Units: K/mm3; Status: F Test: LYMPH #; Value: 2.2; Range: 1.5-4.5; Units: K/mm3; Status: F Test: MONO #; Value: 0.3; Range: 0.0-0.8; Units: K/mm3; Status: F Test: EOS #; Value: 0.1; Range: 0.0-0.50; Units: K/mm3; Status: F Test: BASO #; Value: 0.0; Range: 0.0-0.2; Units: K/mm3; Status: F Test: LARGE UNSTAINED CELL #; Value: 0.1; Range: 0.0-0.4; Units: K/mm3; Status: F Lab Order: BMP; SPEC'M 03/02/16 10:55 Test: GLUCOSE, FASTING; Value: 123; Range: 83-110; Abnormal: Above high normal; Units: MG/DL; Status: F Test: BLOOD UREA NITROGEN; Value: 12; Range: 7-18; Units: MG/DL; Status: F Test: CREATININE FOR GFR; Value: 0.81; Range: 0.55-1.02; Units: MG/DL; Status: F Test: GLOMERULAR FILTRATION RATE; Value: > 60.0; Range: >32; Status: F Test: SODIUM LEVEL; Value: 145; Range: 136-145; Units: MEQ/L; Status: F Test: POTASSIUM SERUM; Value: 4.0; Range: 3.5-5.1; Units: MEQ/L; Status: F Test: CHLORIDE LEVEL; Value: 106; Range: 98-107; Units: MEQ/L; Status: F Test: CARBON DIOXIDE LEVEL; Value: 31; Range: 21-32; Units: MEQ/L; Status: F Test: ANION GAP; Value: 8; Range: 8-16; Units: MEQ/L; Status: F Test: CALCIUM LEVEL; Value: 8.8; Range: 8.8-10.2; Units: MG/DL; Status: F Test Note: ; Units are mL/min/1.73 m2 Chronic Kidney Disease Staging per NKF: Stage I & II GFR >=60 Normal to Mildly Decreased Stage III GFR 30-59 Moderately Decreased Stage IV GFR 15-29 Severely Decreased Stage V GFR <15 Very Little GFR Left ESRD GFR <15 on FOUNDRY PATTERNMAKER Lab Order: Type & Screen; SPEC'M 03/02/16 10:55 Test: BLOOD TYPE; Value: O POS; Status: F Test: AB SCREEN (INDIRECT ELIZABETH)GEL; Value: NEGATIVE; Status: F Lab Order: PT/INR; SPEC'M 03/02/16 12:58 Test: PROTHROMBIN TIME; Value: 15.2; Range: 12.3-14.5; Abnormal: Above high normal; Units: SECONDS; Status: F Test: INR; Value: 1.19; Status: F Test Note: ; THERAPUTIC HUMAN INR VALUES INDICATIONS NORMAL RANGES PROPHYLAXIS/TREATMENT OF: VENOUS THROMBOSIS 2.0-3.0 PULMONARY EMBOLISM 2.0-3.0 PREVENTION OF SYSTEMIC EMBOLISM FROM: TISSUE HEART VALVES 2.0-3.0 ACUTE MYOCARDIAL INFARCTION 2.0-3.0 VALVULAR HEART DISEASE 2.0-3.0 ATRIAL FIBRILLATION 2.0-3.0 MECHANICAL VALVES(HIGH RISK) 2.5-3.5 RECURRENT MYOCARDIAL INFARCTION 2.5-3.5 Lab Order: PTT; SPEC'M 03/02/16 12:58 Test: PARTIAL THROMBOPLASTIN TIME; Value: 30.8; Range: 26.6-37.1; Units: SECONDS; Status: F Radiology Order: CT Pelvis With Contrast Test: CT Pelvis With Contrast REASON FOR EXAMINATION: eval for mass/tumor (external bleeding lesions); Clinical: Evaluate mass.; ; Technique: Axial contrast enhanced images from above the iliac crest through the; pubic symphysis with coronal and sagittal re-formations using 100 ml Isovue 370; intravenous contrast material.; ; Findings:; There is asymmetric heterogeneous enhancement of the left labia majora with; complex appearance including small foci of gas and fat stranding suggesting an; infectious process with gas-forming bacteria as well as phlegmonous changes with; gas secondary to necrosis. There is no discrete drainable collection and an area; of infectious/inflammatory change does not appear to extend into the vagina or; uterus. Correlation with physical examination is recommended.; ; Visualized portions of the small large bowel are unremarkable. The bladder; appears normal. The uterus appears atrophic with small calcified myomatous; changes. No pelvic fluid is appreciated. No significant adenopathy is; identified. The surrounding musculoskeletal structures demonstrate symmetric; age-related changes.; ; Impression:; Findings suggest an infectious/inflammatory process involving the left labia with; small foci of gas raising the possibility of necrosis as well as phlegmon/abscess; formation secondary to gas forming bacteria. No apparent extension into the; vagina or uterus. No further acute pathology is appreciated.; ; ; Signed by; Samson Hood MD 03/02/2016 01:33 P; Outcome: 15:09 Decision to Hospitalize by Provider. patricia 16:04 Discharge Assessment: patient administered narcotics - no. The following High Risk kc3 Discharge criteria are identified: None. Admitted to OR accompanied by nurse, via stretcher, with chart. Condition: stable. CT Study completed. Property :Personal belongings accompany Pt. 16:08 Patient left the ED. kc3 Signatures: Dispatcher [employer] EDMS Juanis Mohr, Sock Lining Examiner Unit deg Estevan Pratt RN RN mlb1 Flower Prakash, ARMED CUSTOM PROTECTION OFFICER ARMED CUSTOM PROTECTION OFFICER Micaela Monzon, RN RN ttb Solange Dempsey, CAROLIN AUTOMATION MECHANIC rs6 Rom Mccormack Timothy tk Crane, Kelsi,RN RN kc3 Yaneli Malone Corrections: (The following items were deleted from the chart) 12:23 10:58 Advance Directives: Currently, there is no health care proxy. mlb1 mlb1 Chart Complete MTDD
== END 2016-03-03 15:55 | disposition home or self-care (01) ==
LOC: M ED 10:27 → M SDC 15:20 → M MS5PR 18:10 → M SDC 18:10 → M MS5PR 18:34 → M SDC 03-03 12:55
PROVIDERS: ADMIT Specialist; ATTEND Specialist
DX: N90.89 Other specified noninflammatory disorders of vulva and perineum (principal); I10 Essential (primary) hypertension; E78.4 Other hyperlipidemia; E78.00 Pure hypercholesterolemia, unspecified; Z85.3 Personal history of malignant neoplasm of breast; Z79.82 Long term (current) use of aspirin; Z79.899 Other long term (current) drug therapy
CPT/HCPCS: 11422; 36415; 72193; 80048; 85025; 85610; 85730; 86850; 86900; 86901; 88304; 99285; J0690; J2250; J2405; J3010; Q9967

== ENCOUNTER 2018-07-30 10:54 | Inpatient (IN) | payer MEDICARE, BC ==
[~2018-07-30] VITALS: Ht 165.1 cm; Wt 114.5 kg
[~2018-07-30 10:54] MED LIST: ASPI-1 PO; ATOR1TAB19 PO; DRIS50003 PO; ENAL10TA10 PO; PERC5TAB12 PO; TRAM50TA2 PO
[2018-07-30] MEDS ORDERED: ACET500T15 PO (11:13)
[2018-07-30] MEDS ORDERED: ALBUTEROL SULFATE 2.5 MG/0.5 ML INH NEB SOLN INH ONE (11:45)
[2018-07-30] MEDS ORDERED: methylPREDNISolone INJ 125 MG/2 ML VIAL (J2930) IV ONE (11:45)
[2018-07-30] MEDS ORDERED: IPRATROPIUM 0.5MG/ALBUTEROL 2.5MG INH SOL UD 3ML (DUONEB)(J7620) NEB ONE (11:45)
[2018-07-30 12:26] LABS: HEMATOCRIT 38.2 % (36.0-47.0); HEMOGLOBIN 12.6 g/dl (12.0-15.5); MEAN CORPUSCULAR HEMOGLOBIN 26.4 pg (27.0-33.0); MEAN CORPUSCULAR VOLUME 80.1 fl (80.0-96.0); PLATELET COUNT, AUTOMATED 363 10^3/uL (150-450); RED BLOOD COUNT 4.77 10^6/uL (4.00-5.40); WHITE BLOOD COUNT 22.4 10^3/uL (4.0-10.0)
[2018-07-30 12:44] LABS: ABG BASE EXCESS 2.4 (-2.0-2.0); ABG O2 SATURATION 93.8 % (95.0-99.0); ABG PARTIAL PRESSURE CO2 36.9 mmHg (35.0-45.0); ABG PARTIAL PRESSURE O2 68.3 mmHg (75.0-100.0); ABG STANDARD HCO3 26.5 MEQ/L (22.0-26.0); ABG TOTAL CO2 27.1 MEQ/L (23.0-31.0); ABG pH (ARTERIAL) 7.466 UNITS (7.350-7.450)
[2018-07-30 12:57] LABS: BILIRUBIN,DIRECT 0.6 MG/DL (0.0-0.2); BILIRUBIN,TOTAL 0.9 MG/DL (0.2-1.0); TOTAL PROTEIN 7.2 GM/DL (6.4-8.2)
[2018-07-30 12:59] LABS: BLOOD UREA NITROGEN 25 MG/DL (7-18); CALCIUM LEVEL 8.7 MG/DL (8.8-10.2); CARBON DIOXIDE LEVEL 25 MEQ/L (21-32); CHLORIDE LEVEL 102 MEQ/L (98-107); CK-MB VALUE MASS 1.6 NG/ML (<3.6); CPK CREATINE PHOSPHOKINASE 251 U/L (26-192); CREATININE FOR GFR 0.86 MG/DL (0.55-1.30); GLOMERULAR FILTRATION RATE > 60.0 (>32); GLUCOSE, FASTING 129 MG/DL (70-100); MB/CK RELATIVE INDEX 0.64 (< OR =4); NT-PRO BNP 984 PG/ML (<450); POTASSIUM SERUM 3.4 MEQ/L (3.5-5.1); SODIUM LEVEL 138 MEQ/L (136-145); TROPONIN I < 0.02 NG/ML (< 0.10)
[2018-07-30] MEDS ORDERED: LIDOCAINE 2% 5ML JELLY UROJET TOP ONE (13:15)
[2018-07-30] MEDS ORDERED: AZITHROMYCIN INJ 500 MG, VIAL MATE ADAPTER 1 EACH in D5W 250 ML IV ONE (13:15)
[2018-07-30] MEDS ORDERED: NS 1,000 ML IV ONE (13:15)
[2018-07-30] MEDS ORDERED: cefTRIAXone SOD 2 GM in D5W MINI-BAG PLUS 50 ML IV ONE (13:15)
--- NOTE | 2018-07-30 13:27 | REP ---
PORTABLE CHEST X-RAY: SINGLE VIEW. HISTORY: Dyspnea and cough. COMPARISON STUDY: December 08, 2011 FINDINGS: There are increased markings behind the heart in the left lower lobe. Pneumonia suspected. Right lung is clear. Pleural angles are sharp. The aorta is calcific and somewhat tortuous. Heart is not felt to be enlarged. IMPRESSION: Increased markings in the left base behind the heart, suspect pneumonia. Electronically Signed by Ran Wallace MD 07/30/2018 03:10 P
--- NOTE | 2018-07-30 13:30 | ECGEPIP ---
[facility] - ED Test Date: 2018-07-30 Pat Name: SUMA STEINBERG Department: Room: - Gender: Female Waiter Waitress: : 1935 Requested By: Osiris Smith Order Number: [id number] Reading MD: Enzo Charles Measurements Intervals [place] Rate: 116 P: 13 VT: 140 QRS: QRSD: 133 T: 11 QT: 351 QTc: 489 Interpretive Statements SINUS TACHYCARDIA WITH OCCASIONAL SUPRAVENTRICULAR PREMATURE COMPLEXES RIGHT AXIS DEVIATION RIGHT BUNDLE BRANCH BLOCK NO PRIORS FOR COMPARISON Electronically Signed on 07-30-2018 13:30:14 EDT by Enzo Charles
--- NOTE | 2018-07-30 13:39 | REP ---
CT Head without contrast HISTORY: Weakness COMPARISON: 12/08/2011 An area of decreased attenuation is present in the right basal ganglia. This represents an old lacunar infarction. Areas of decreased attenuation are present in the periventricular and subcortical white matter. This represents small-vessel ischemic disease. There is no intraparenchymal hemorrhage, acute infarct, mass or midline shift. The ventricular system and cortical sulci are dilated consistent with moderate volume loss. There is no extra cerebral collection. There is no fracture. Mucosal thickening is present in the ethmoid and left maxillary sinuses. IMPRESSION: 1. Old right basal ganglia lacunar infarction. 2. Small vessel ischemic disease. 3. Moderate volume loss. Electronically Signed by Melvin Steven MD 07/30/2018 01:31 P
[2018-07-30 14:12] LABS: BASO # 0.1 10^3/uL (0.0-0.2); BASO % 0.2 % (0.0-1.0); EOS % 0.1 % (0.0-3.0); LYMPH # 2.4 10^3/uL (1.5-4.5); LYMPH % 10.8 % (24.0-44.0); MONO # 1.5 10^3/uL (0.0-0.8); MONO % 6.6 % (0.0-5.0); NEUTROPHILS # 18.3 10^3/uL (1.8-7.7); NEUTROPHILS % 81.8 % (36.0-66.0)
[2018-07-30] MEDS ORDERED: BAYE325T16 PO (14:29)
[2018-07-30] MEDS ORDERED: HYDR25TAB PO (14:29)
[2018-07-30] MEDS ORDERED: ENAL10TA2 PO (14:29)
[2018-07-30] MEDS ORDERED: MOM 30ML SUSPENSION UDC PO PRN (14:30)
[2018-07-30] MEDS ORDERED: MAALOX 30 ML SUSP *UDC PO PRN (14:30)
--- NOTE | 2018-07-30 14:33 | HPEPDOC ---
General Date of Admission 07/30/2018 Date of Service: Jul 30, 2018 Attending Physician: FLAVIA HOGUE MD Chief Complaint The patient is a 82-year-old female admitted with a reason for visit of Short ness Off Breath. Source: Patient Exam Limitations: No limitations Timing/Duration: Day(s) (5 days) Severity: Moderate Associated Symptoms: Cough, Shortness of breath History of Present Illness This 82 years old white female with past medical history of hyperlipidemia, hypertension, status post left mastectomy secondary to breast cancer has not seen her PCP since last 1 year, but she had developed increasing shortness of breath, cough and feeling tired since last 5 days. Patient called her PCP. She was advised to come for evaluation but she decided come to emergency room instead. Patient's shortness of breath is not associated with chest pain, nausea, vomitin g but is associated with cough. Has been since last 5 days, persistent. No other associated symptoms not improve with any position or medications, but progressively getting worse and spontaneously. Home Medications Scheduled Atorvastatin Calcium (Atorvastatin Calcium) 10 Mg Tab, 10 MG PO QPM, (Reported) Enalapril Maleate (Enalapril Maleate) 10 Mg Tablet, 10 MG PO DAILY, (Reported) Hydrochlorothiazide (Hydrochlorothiazide) 25 Mg Tablet, 25 MG PO DAILY, (Reported) Scheduled PRN Acetaminophen (Acetaminophen) 500 Mg Tablet, 1,000 MG PO Q6H PRN for PAIN, (Reported) Aspirin (Aspirin) 325 Mg Tablet, 325 MG PO DAILY PRN for PAIN, (Reported) Allergies Coded Allergies: No Known Allergies (Unverified , 07/30/18) Past Medical History Medical History As per [facility] Surgical History As per HPI Family History Significant Family History: No pertinent family hx Social History * Smoker: Denies Alcohol: Denies A-FIB/CHADSVASC A-FIB History Current/History of A-Fib/PAF?: No Review of Systems Constitutional: Reports: Fatigue Eyes: Denies: Pain, Vision change, Conjunctivae inflammation, Eyelid inflammation, Redness, Other ENT: Denies: Head Aches, Ear Pain, Dysphagia, Sinus Congestion, Post Nasal Drip, Sore Throat, Epistaxis, Other Symptoms Skin: Denies: Rash, Lesions, Jaundice, Bruising, Itching, Dry, Breakdown, Nail Changes, Other Pulmonary: Reports: Dyspnea, Cough Cardiovascular: Denies: Chest Pain, Palpitations, Orthopnea, Paroxysmal Noc. Dyspnea, Edema, Lt Headedness, Other Symptoms Gastrointestinal: Denies: Nausea, Vomiting, Abdominal Pain, Diarrhea, Constipation, Melena, Hematochezia, Other Symptoms Genitourinary: Denies: Dysuria, Frequency, Incontinence, Hematuria, Retention, Other Symptoms Hematologic: Denies: Bruising, Bleeding Excessively, Petecchia, Purpura, Enlarged Lymph Nodes, Other Hematologic Endocrine: Denies: Polydipsia, Polyphagia, Polyuria, Heat Intolerance, Cold Intolerance, Other Endocrine Sx Musculoskeletal: Denies: Neck Pain, Back Pain, Shoulder Pain, Arm Pain, Hand Pain, Leg Pain, Foot Pain, Joint Pain, Muscle Pain, Spasms, Other Symptoms Neurological: Denies: Weakness, Numbness, Incoordination, Change in speech, Confusion, Seizures, Other Symptoms Psych: Denies: Mood Normal, Anxiety, Depression, Memory Issues, Thoughts of Self Harm, Anger, Thoughts of Harming Other, Other Psych Physical Examination General Exam: Positive: Alert, Cooperative Eye Exam: Positive: PERRLA, Conjunctiva & lids normal ENT Exam: Positive: Atraumatic Neck Exam: Positive: Supple Chest Exam: Positive: Diminished, Other (. Crackles on left base) Heart Exam: Positive: Rate Normal, Normal S1, Normal S2 Telemetry: Positive: PVCs Abdomen Exam: Positive: Normal bowel sounds Extremity Exam: Positive: Normal pulses Skin Exam: Positive: Nl turgor and temperature Neuro Exam: Positive: Normal Gait Psych Exam: Positive: Mental status NL Vital Signs Vital Signs Date Time Temp Pulse Resp B/P (MAP) Pulse Ox O2 Delivery O2 Flow Rate FiO2 07/30/18 12:54 111 96 07/30/18 11:16 138/89 (105) 07/30/18 11:14 97.5 24 Room Air Laboratory Data Labs 24H Laboratory Tests 2 07/30/18 12:09: Immature Granulocyte % (Auto) 0.5, White Blood Count 22.4H, Red Blood Count 4.77, Hemoglobin 12.6, Hematocrit 38.2, Mean Corpuscular Volume 80.1, Mean Corpuscular Hemoglobin 26.4L, Mean Corpuscular Hemoglobin Concent 33.0, Red Cell Distribution Width 16.0H, Platelet Count 363, Neutrophils (%) (Auto) 81.8H, Lymphocytes (%) (Auto) 10.8L, Monocytes (%) (Auto) 6.6H, Eosinophils (%) (Auto) 0.1, Basophils (%) (Auto) 0.2, Neutrophils # (Auto) 18.3H, Lymphocytes # (Auto) 2.4, Monocytes # (Auto) 1.5H, Eosinophils # (Auto) 0.0, Basophils # (Auto) 0.1, Nucleated Red Blood Cells % (auto) 0.0, Anion Gap 11, Glomerular Filtration Rate > 60.0, Blood Urea Nitrogen 25H, Creatinine 0.86, Sodium Level 138, Potassium Level 3.4L, Chloride Level 102, Carbon Dioxide Level 25, Calcium Level 8.7L, Total Creatine Kinase 251H, Aspartate Amino Transf (AST/SGOT) 39H, Alanine Aminotransferase (ALT/SGPT) 29, Alkaline Phosphatase 88, Total Bilirubin 0.9, Direct Bilirubin 0.6H, Creatine Kinase MB 1.6, Creatine Kinase MB Relative Index 0.64, Troponin I < 0.02, IA-Uql-J-Type Natriuretic Peptide 984H, Total Protein 7.2, Albumin 3.0L, Albumin/Globulin Ratio 0.71L 07/30/18 12:15: Blood Gas Bicarbonate Standard 26.5H, Arterial Blood pH 7.466H, Arterial Blood Partial Pressure CO2 36.9, Arterial Blood Partial Pressure O2 68.3L, Arterial Blood Total CO2 27.1, Arterial Blood HCO3 26.0, Arterial Blood Base Excess 2.4H, Arterial Blood Oxygen Saturation 93.8L 07/30/18 13:47: Urine Color RIMMA, Urine Appearance CLOUDYH, Urine pH 5.0, Urine Specific [place] 1.029, Urine Protein 2+H, Urine Glucose (UA) NEGATIVE, Urine Ketones TRACEH, Urine Blood 2+H, Urine Nitrite NEGATIVE, Urine Bilirubin NEGATIVE, Urine Urobilinogen 4.0H, Urine Leukocyte Esterase 3+H, Urine WBC (Auto) TNTCH, Urine RBC (Auto) 11H, Urine Hyaline Casts (Auto) 0, Urine Bacteria (Auto) 3+H, Urine Squamous Epithelial Cells 0, Urine Sperm (Auto) 07/30/18 14:03: CBC/BMP Laboratory Tests 07/30/18 12:09 Red Blood Count 4.77, Mean Corpuscular Volume 80.1, Mean Corpuscular Hemoglobin 26.4 L, Mean Corpuscular Hemoglobin Concent 33.0, Red Cell Distribution Width 16.0 H, Neutrophils (%) (Auto) 81.8 H, Lymphocytes (%) (Auto) 10.8 L, Monocytes (%) (Auto) 6.6 H, Eosinophils (%) (Auto) 0.1, Basophils (%) (Auto) 0.2, Neutrophils # (Auto) 18.3 H, Lymphocytes # (Auto) 2.4, Monocytes # (Auto) 1.5 H, Eosinophils # (Auto) 0.0, Basophils # (Auto) 0.1, Calcium Level 8.7 L, Total Creatine Kinase 251 H Microbiology Microbiology 07/30/18 Blood Culture, Received Pending 07/30/18 Blood Culture, Received Pending 07/30/18 Urine Culture, Received Pending Problems (1) Pneumonia Status: Acute Problem Text: Patient has a retrocardiac infiltrate Admit to medical floor with telemetry secondary to one episode of SVT IV fluids at 75 mL per hour Rocephin 1 g IV every 24 hours Zithromax 500 mg IV every 24 hours DuoNeb when necessary Oxygen support Sputum cultures DVT prophylaxis with heparin Continue home meds (2) Paroxysmal SVT (supraventricular tachycardia) Status: Acute Problem Text: As per ED attending had. Once very short episode of SVT but resolved spontaneously pt is on telemetry and will monitor patient's cardiac rhythm Patient also has hypomagnesemia and hypocalcemia, so most likely cause could be secondary to electrolyte imbalance Magnesium was corrected by ED, will correct potassium and calcium on admission Plan / VTE VTE Prophylaxis Ordered?: Yes FLAVIA HOGUE MD Jul 30, 2018 14:33
[2018-07-30] MEDS ORDERED: POTASSIUM CHLORIDE 10 MEQ SR TABLET PO ONE (16:00)
[2018-07-30 17:57] VITALS: BP 138/69
[2018-07-30] MEDS: DOCUSATE SODIUM 100 MG CAP PO SCH (20:37)
[2018-07-30] MEDS: HEPARIN SOD (PORCINE) 5000 UNITS/ML VIAL SC SCH (20:37)
[2018-07-30] MEDS: ACETAMINOPHEN TAB 650MG DOSE (2X325MG) PO PRN (20:44)
[2018-07-30 22:00] VITALS: BP 141/63
[2018-07-31] MEDS: NS 1,000 ML IV SCH ×2 (01:47→12:26)
[2018-07-31 06:00] VITALS: BP 145/74
[2018-07-31 06:30] LABS: HEMATOCRIT 34.4 % (36.0-47.0); HEMOGLOBIN 11.5 g/dl (12.0-15.5); MEAN CORPUSCULAR HEMOGLOBIN 27.4 pg (27.0-33.0); MEAN CORPUSCULAR HGB CONC 33.4 g/dl (32.0-36.5); MEAN CORPUSCULAR VOLUME 81.9 fl (80.0-96.0); PLATELET COUNT, AUTOMATED 334 10^3/uL (150-450); WHITE BLOOD COUNT 18.1 10^3/uL (4.0-10.0)
[2018-07-31 06:57] LABS: ALBUMIN 2.3 GM/DL (3.2-5.2); ALT/SGPT 27 U/L (12-78); BILIRUBIN,TOTAL 0.4 MG/DL (0.2-1.0); BLOOD UREA NITROGEN 28 MG/DL (7-18); CALCIUM LEVEL 8.4 MG/DL (8.8-10.2); CARBON DIOXIDE LEVEL 26 MEQ/L (21-32); CHLORIDE LEVEL 106 MEQ/L (98-107); CREATININE FOR GFR 0.77 MG/DL (0.55-1.30); GLOMERULAR FILTRATION RATE > 60.0 (>32); GLUCOSE, FASTING 156 MG/DL (70-100); POTASSIUM SERUM 3.8 MEQ/L (3.5-5.1); SODIUM LEVEL 139 MEQ/L (136-145)
[2018-07-31] MEDS: HEPARIN SOD (PORCINE) 5000 UNITS/ML VIAL SC SCH ×2 (09:08→22:13)
[2018-07-31] MEDS: cefTRIAXone SOD 1 GM in D5W MINI-BAG PLUS 50 ML IV SCH (09:08)
[2018-07-31] MEDS: DOCUSATE SODIUM 100 MG CAP PO SCH ×2 (09:08→22:13)
[2018-07-31 09:38] VITALS: BP 124/65
--- NOTE | 2018-07-31 10:07 | IPNPDOC ---
Subjective Date Seen The patient was seen on 07/31/18. Subjective Chief Complaint/HPI Patient is feeling much better, decreased shortness of breath General: Denies: ROS Unobtainable, Chills, Night Sweats, Fatigue, Malaise, Normal Appetite, Other Symptoms Constitutional: Denies: Chills, Fever, Malaise, Night Sweats, Weakness, Fatigue, Weight Loss, Lethargy, Other Eyes: Denies: Pain, Vision change, Conjunctivae inflammation, Eyelid inflammation, Redness, Other ENT: Denies: Head Aches, Ear Pain, Dysphagia, Sinus Congestion, Post Nasal Drip, Sore Throat, Epistaxis, Other Symptoms Skin: Denies: Rash, Lesions, Jaundice, Bruising, Itching, Dry, Breakdown, Nail Changes, Other Pulmonary: Denies: Dyspnea, Cough, Pleuritic Chest Pain, Other Symptoms Cardiovascular: Denies: Chest Pain, Palpitations, Orthopnea, Paroxysmal Noc. Dyspnea, Edema, Lt Headedness, Other Symptoms Gastrointestinal: Denies: Nausea, Vomiting, Abdominal Pain, Diarrhea, Constipation, Melena, Hematochezia, Other Symptoms Genitourinary: Denies: Dysuria, Frequency, Incontinence, Hematuria, Retention, Other Symptoms Musculoskeletal: Denies: Neck Pain, Back Pain, Shoulder Pain, Arm Pain, Hand Pain, Leg Pain, Foot Pain, Joint Pain, Muscle Pain, Spasms, Other Symptoms Neurological: Denies: Weakness, Numbness, Incoordination, Change in speech, Confusion, Seizures, Other Symptoms Objective Physical Examination General Exam: Positive: Alert, Cooperative Eye Exam: Positive: PERRLA, Conjunctiva & lids normal ENT Exam: Positive: Atraumatic Neck Exam: Positive: Supple Chest Exam: Positive: Diminished, Other (. Crackles on left base) Heart Exam: Positive: Rate Normal, Normal S1, Normal S2 Telemetry: Positive: PVCs Abdomen Exam: Positive: Normal bowel sounds Extremity Exam: Positive: Normal pulses Skin Exam: Positive: Nl turgor and temperature Neuro Exam: Positive: Normal Gait Psych Exam: Positive: Mental status NL Assessment /Plan Problems (1) Pneumonia Status: Acute Problem Text: Patient has a retrocardiac infiltrate Admit to medical floor with telemetry secondary to one episode of SVT IV fluids at 75 mL per hour Rocephin 1 g IV every 24 hours Zithromax 500 mg IV every 24 hours DuoNeb when necessary Oxygen support Sputum cultures DVT prophylaxis with heparin Continue home meds (2) UTI (urinary tract infection) Problem Text: Continue Rocephin Urinary cultures are still pending Follow once the report is available (3) Paroxysmal SVT (supraventricular tachycardia) Status: Acute Problem Text: As per ED attending had. Once very short episode of SVT but resolved spontaneously pt is on telemetry and will monitor patient's cardiac rhythm Patient also has hypomagnesemia and hypocalcemia, so most likely cause could be secondary to electrolyte imbalance Magnesium was corrected by ED, will correct potassium on admission Repeat laboratory work including CBC, CMP, serum magnesium has been ordered. Please follow once available Ventricular rate has been under control. No more episode of SVT. Continue cardiac monitoring Plan/VTE VTE Prophylaxis Ordered?: Yes VS, I&O, 24H[facility] Vital Signs/I&O Vital Signs Date Time Temp Pulse Resp B/P (MAP) Pulse Ox O2 Delivery O2 Flow Rate FiO2 07/31/18 09:38 124 65 124/65 (84) 92 07/31/18 06:00 97.1 07/30/18 17:45 Room Air I&O- Last 24 Hours up to 6 AM 07/31/18 06:00 Intake Total 1120 ml Output Total 30 ml Balance 1090 ml Laboratory Data 24H LABS Laboratory Tests 2 07/30/18 11:57: 07/30/18 12:09: Immature Granulocyte % (Auto) 0.5, White Blood Count 22.4H, Red Blood Count 4.77, Hemoglobin 12.6, Hematocrit 38.2, Mean Corpuscular Volume 80.1, Mean Corpuscular Hemoglobin 26.4L, Mean Corpuscular Hemoglobin Concent 33.0, Red Cell Distribution Width 16.0H, Platelet Count 363, Neutrophils (%) (Auto) 81.8H, Lymphocytes (%) (Auto) 10.8L, Monocytes (%) (Auto) 6.6H, Eosinophils (%) (Auto) 0.1, Basophils (%) (Auto) 0.2, Neutrophils # (Auto) 18.3H, Lymphocytes # (Auto) 2.4, Monocytes # (Auto) 1.5H, Eosinophils # (Auto) 0.0, Basophils # (Auto) 0.1, Nucleated Red Blood Cells % (auto) 0.0, Anion Gap 11, Glomerular Filtration Rate > 60.0, Blood Urea Nitrogen 25H, Creatinine 0.86, Sodium Level 138, Potassium Level 3.4L, Chloride Level 102, Carbon Dioxide Level 25, Calcium Level 8.7L, Total Creatine Kinase 251H, Aspartate Amino Transf (AST/SGOT) 39H, Alanine Aminotransferase (ALT/SGPT) 29, Alkaline Phosphatase 88, Total Bilirubin 0.9, Direct Bilirubin 0.6H, Creatine Kinase MB 1.6, Creatine Kinase MB Relative Index 0.64, Troponin I < 0.02, AB-Gza-[id number]-Type Natriuretic Peptide 984H, Total Protein 7.2, Albumin 3.0L, Albumin/Globulin Ratio 0.71L 07/30/18 12:15: Blood Gas Bicarbonate Standard 26.5H, Arterial Blood pH 7.466H, Arterial Blood Partial Pressure CO2 36.9, Arterial Blood Partial Pressure O2 68.3L, Arterial Blood Total CO2 27.1, Arterial Blood HCO3 26.0, Arterial Blood Base Excess 2.4H, Arterial Blood Oxygen Saturation 93.8L 07/30/18 13:47: Urine Color RIMMA, Urine Appearance CLOUDYH, Urine pH 5.0, Urine Specific [place] 1.029, Urine Protein 2+H, Urine Glucose (UA) NEGATIVE, Urine Ketones TRACEH, Urine Blood 2+H, Urine Nitrite NEGATIVE, Urine Bilirubin NEGATIVE, Urine Urobilinogen 4.0H, Urine Leukocyte Esterase 3+H, Urine WBC (Auto) TNTCH, Urine RBC (Auto) 11H, Urine Hyaline Casts (Auto) 0, Urine Bacteria (Auto) 3+H, Urine Squamous Epithelial Cells 0, Urine Sperm (Auto) 07/30/18 14:03: Lactic Acid Level 2.2*H 07/30/18 18:35: Lactic Acid Followup at 4 Hours 1.7 07/31/18 05:43: Nucleated Red Blood Cells % (auto) 0.0, Anion Gap 7L, Glomerular Filtration Rate > 60.0, Blood Urea Nitrogen 28H, Creatinine 0.77, Sodium Level 139, Potassium Level 3.8, Chloride Level 106, Carbon Dioxide Level 26, Calcium Level 8.4L, Aspartate Amino Transf (AST/SGOT) 31, Alanine Aminotransferase (ALT/SGPT) 27, Alkaline Phosphatase 86, Total Bilirubin 0.4#, Total Protein 7.0, Albumin 2.3#L, Albumin/Globulin Ratio 0.49L CBC/BMP Laboratory Tests 07/30/18 12:09 Red Blood Count 4.77, Mean Corpuscular Volume 80.1, Mean Corpuscular Hemoglobin 26.4 L, Mean Corpuscular Hemoglobin Concent 33.0, Red Cell Distribution Width 16.0 H, Neutrophils (%) (Auto) 81.8 H, Lymphocytes (%) (Auto) 10.8 L, Monocytes (%) (Auto) 6.6 H, Eosinophils (%) (Auto) 0.1, Basophils (%) (Auto) 0.2, Neutrophils # (Auto) 18.3 H, Lymphocytes # (Auto) 2.4, Monocytes # (Auto) 1.5 H, Eosinophils # (Auto) 0.0, Basophils # (Auto) 0.1, Calcium Level 8.7 L, Total Creatine Kinase 251 H 07/31/18 05:43 Red Blood Count 4.20, Mean Corpuscular Volume 81.9, Mean Corpuscular Hemoglobin 27.4, Mean Corpuscular Hemoglobin Concent 33.4, Red Cell Distribution Width 16.2 H, Calcium Level 8.4 L, Aspartate Amino Transf (AST/SGOT) 31, Alanine Aminotransferase (ALT/SGPT) 27, Alkaline Phosphatase 86, Total Bilirubin 0.4 #, Total Protein 7.0, Albumin 2.3 #L Microbiology Microbiology 07/30/18 Blood Culture, Received Pending 07/30/18 Blood Culture, Received Pending 07/30/18 Urine Culture, Received Pending FLAVIA HOGUE MD Jul 31, 2018 10:07
[2018-07-31] MEDS: AZITHROMYCIN INJ 500 MG, VIAL MATE ADAPTER 1 EACH in D5W 250 ML IV SCH (10:46)
[2018-07-31 14:00] VITALS: BP 124/59
[2018-07-31 22:00] VITALS: BP 121/56
[2018-08-01] MEDS: NS 1,000 ML IV SCH ×2 (00:41→16:29)
[2018-08-01 06:00] VITALS: BP 138/71
[2018-08-01] MEDS: HEPARIN SOD (PORCINE) 5000 UNITS/ML VIAL SC SCH ×2 (08:24→20:13)
[2018-08-01] MEDS: cefTRIAXone SOD 1 GM in D5W MINI-BAG PLUS 50 ML IV SCH (08:24)
[2018-08-01] MEDS: DOCUSATE SODIUM 100 MG CAP PO SCH ×2 (08:24→20:13)
[2018-08-01] MEDS: IPRATROPIUM 0.5MG/ALBUTEROL 2.5MG INH SOL UD 3ML (DUONEB)(J7620) NEB PRN ×2 (09:48→16:37)
[2018-08-01] MEDS: AZITHROMYCIN INJ 500 MG, VIAL MATE ADAPTER 1 EACH in D5W 250 ML IV SCH (10:15)
[2018-08-01 14:00] VITALS: BP 131/80
--- NOTE | 2018-08-01 20:07 | IPNPDOC ---
Text Note Date of Service The patient was seen on 08/01/18. NOTE Pt was seen and examined at bedside. HR 100-120. WBC 18.1. Urine culture klebsiella pneu. pansensitive. negative blood cultures. Pt is clinically improving. Denies any chest pain or SOB. PHE: General Exam: Positive: Alert, Cooperative Eye Exam: Positive: PERRLA, Conjunctiva & lids normal ENT Exam: Positive: Atraumatic Neck Exam: Positive: Supple Chest Exam: Positive: Diminished, Other (. Crackles on left base) Heart Exam: Positive: Rate Normal, Normal S1, Normal S2 Telemetry: Positive: PVCs Abdomen Exam: Positive: Normal bowel sounds Extremity Exam: Positive: Normal pulses Skin Exam: Positive: Nl turgor and temperature Neuro Exam: Positive: Normal Gait Psych Exam: Positive: Mental status NL Vital Signs Date Time Temp Pulse Resp B/P (MAP) Pulse Ox O2 Delivery O2 Flow Rate FiO2 08/01/18 22:00 96.9 117 22 129/78 (95) 92 2.0 08/01/18 14:00 97.6 94 20 131/80 (97) 91 08/01/18 06:00 96.6 96 18 138/71 (93) 93 Intake & Output 08/02/18 06:00 Intake Total 720 ml Balance 720 ml Laboratory Tests 08/01/18 16:34: Bedside Glucose (Misc Panel) 116H Microbiology 07/30/18 Urine Culture - Final, Complete Klebsiella Pneumoniae Current Medications Medications (Trade) Dose Ordered Sig/Alexander Route PRN Reason Start Time Stop Time Status Last Admin Dose Admin Acetaminophen (Tylenol Tab) 650 mg Q4H PRN PO PAIN OR FEVER 07/30/18 14:30 07/30/18 20:44 650 MG Albuterol/ Ipratropium (Duoneb (Ipr 0.5mg/Alb 2.5mg)) 3 ml Q2HP PRN NEB SHORTNESS OF BREATH 07/30/18 14:30 08/01/18 16:37 3 ML Azithromycin 500 mg/IV Miscellaneous Supplies 1 each/ Dextrose 255 ml @ 255 mls/hr Q24H IV 07/31/18 10:00 08/01/18 10:15 255 MLS/HR Ceftriaxone Sodium 1 gm/ Dextrose 50 ml @ 100 mls/hr DAILY IV 07/31/18 09:00 08/01/18 08:24 100 MLS/HR Docusate Sodium (Colace) 100 mg BID PO 07/30/18 21:00 08/01/18 20:13 100 MG Heparin Sodium (Porcine) (Heparin) 5,000 units Q12H SC 07/30/18 21:00 08/01/18 20:13 5,000 UNITS Sodium Chloride 1,000 ml @ 75 mls/hr [id number] IV 07/30/18 23:00 08/01/18 16:29 75 MLS/HR A/P Continue current management as previously recorded: (1) Pneumonia Status: Acute Problem Text: Patient has a retrocardiac infiltrate Admit to medical floor with telemetry secondary to one episode of SVT IV fluids at 75 mL per hour Rocephin 1 g IV every 24 hours Zithromax 500 mg IV every 24 hours DuoNeb when necessary Oxygen support Sputum cultures DVT prophylaxis with heparin Continue home meds (2) UTI (urinary tract infection) Problem Text: Continue Rocephin (3) Paroxysmal SVT (supraventricular tachycardia) Status: Acute Problem Text: As per ED attending had. Once very short episode of SVT but resolved spontaneously pt is on telemetry and will monitor patient's cardiac rhythm Patient also has hypomagnesemia and hypocalcemia, so most likely cause could be secondary to electrolyte imbalance Magnesium was corrected by ED, will correct potassium on admission Repeat laboratory work including CBC, CMP, serum magnesium has been ordered. Please follow once available Ventricular rate has been under control. No more episode of SVT. Continue cardiac monitoring VS,Fishbone, I+O VS, Fishbone, I+O Vital Signs Date Time Temp Pulse Resp B/P (MAP) Pulse Ox O2 Delivery O2 Flow Rate FiO2 08/01/18 14:00 97.6 94 20 131/80 (97) 91 07/30/18 17:45 Room Air I&O- Last 24 Hours up to 6 AM 08/01/18 06:00 Intake Total 2780 ml Balance 2780 ml VAHID BOWDEN MD Aug 01, 2018 20:07
[2018-08-01 22:00] VITALS: BP_SYST 129; BP_SYST 164; BP_DIAS 78; BP_DIAS 83
[2018-08-02] MEDS: IPRATROPIUM 0.5MG/ALBUTEROL 2.5MG INH SOL UD 3ML (DUONEB)(J7620) NEB PRN (04:46)
[2018-08-02] MEDS: NS 1,000 ML IV SCH (05:05)
[2018-08-02 06:00] VITALS: BP 135/81
[2018-08-02] MEDS: IPRATROPIUM 0.5MG/ALBUTEROL 2.5MG INH SOL UD 3ML (DUONEB)(J7620) NEB SCH ×5 (08:06→23:53)
[2018-08-02] MEDS: cefTRIAXone SOD 1 GM in D5W MINI-BAG PLUS 50 ML IV SCH (08:19)
[2018-08-02] MEDS: HEPARIN SOD (PORCINE) 5000 UNITS/ML VIAL SC SCH ×2 (08:19→20:02)
[2018-08-02] MEDS: DOCUSATE SODIUM 100 MG CAP PO SCH ×2 (08:19→20:02)
[2018-08-02 08:49] LABS: HEMATOCRIT 35.4 % (36.0-47.0); HEMOGLOBIN 11.6 g/dl (12.0-15.5); MEAN CORPUSCULAR HGB CONC 32.8 g/dl (32.0-36.5); MEAN CORPUSCULAR VOLUME 82.3 fl (80.0-96.0); PLATELET COUNT, AUTOMATED 339 10^3/uL (150-450); WHITE BLOOD COUNT 16.8 10^3/uL (4.0-10.0)
[2018-08-02 09:19] LABS: ALBUMIN 2.3 GM/DL (3.2-5.2); ALT/SGPT 58 U/L (12-78); BILIRUBIN,TOTAL 0.4 MG/DL (0.2-1.0); BLOOD UREA NITROGEN 15 MG/DL (7-18); CALCIUM LEVEL 8.5 MG/DL (8.8-10.2); CARBON DIOXIDE LEVEL 27 MEQ/L (21-32); CHLORIDE LEVEL 110 MEQ/L (98-107); CREATININE FOR GFR 0.66 MG/DL (0.55-1.30); GLOMERULAR FILTRATION RATE > 60.0 (>32); GLUCOSE, FASTING 136 MG/DL (70-100); POTASSIUM SERUM 3.3 MEQ/L (3.5-5.1); SODIUM LEVEL 143 MEQ/L (136-145); TOTAL PROTEIN 6.9 GM/DL (6.4-8.2)
[2018-08-02] MEDS: AZITHROMYCIN INJ 500 MG, VIAL MATE ADAPTER 1 EACH in D5W 250 ML IV SCH (10:02)
[2018-08-02] MEDS ORDERED: methylPREDNISolone INJ 125 MG/2 ML VIAL (J2930) IV ONE (12:00)
[2018-08-02 14:00] VITALS: BP 128/80
[2018-08-02] MEDS ORDERED: POTASSIUM CHLORIDE 10 MEQ SR TABLET PO ONE (15:15)
[2018-08-02 15:26] LABS: MAGNESIUM LEVEL 1.6 MG/DL (1.8-2.4)
[2018-08-02] MEDS: MAG SULF 1GM/100ML (MAG RUN) 1 GM in APPROPRIATE DILUENT 1 EA IV SCH ×3 (15:31→18:47)
[2018-08-02 18:00] VITALS: O2SAT 1
--- NOTE | 2018-08-02 19:51 | IPNPDOC ---
Date Seen The patient was seen on 08/02/18. Progress Note SUBJECTIVE: Patient reported not feeling well today No specific complaints but overall unwell. Noted to be wheezing audibly. No reported history of Asthma/COPD or other pulmonary diseases. HR still elevated but improved to low 100s. leukocytosis trending down. OBJECTIVE PHYSICAL EXAMINATION: VITAL SIGNS: Please see below. General: Weak, anxious, audible wheezing. Eyes: Normal sclera, EOMI, SHELDON HENT: Atraumatic, neck supple, moist mucous membranes Cardiovascular: tachycardic. Pulmonary: diffuse b/l wheezing. GI: Soft, nontender, nondistended Skin: Warm and dry Neuro: CN grossly intact. No focal deficits. Strengths equal b/l. Psych: oriented x 3 LABORATORY DATA, IMAGING STUDIES, MICROBIOLOGY: Please see below. DVT prophylaxis ordered?: HSQ and SCD ASSESSMENT AND PLAN: 1. Pneumonia - c/w Rocephin and Zithromax. - Leukocytosis and HR improving, afebrile - Still appeared to have labored breathing. - Monitor O2, support as needed. - Obtain sputum cultures. 2. UTI - on Rocephin 3. Tachycardia - sinus tach with episodes of SVT. - Likely 2/2 Pneumonia with possible underlying pulmonary disease. - Suspicious for cor pulmonale/pulm HTN. - ECHO ordered. - Treat underlying cause, will take time to improve. Verapamil if treatment abso lutely needed. VS, I&O, 24H, Fishbone Vital Signs/I&O Vital Signs Date Time Temp Pulse Resp B/P (MAP) Pulse Ox O2 Delivery O2 Flow Rate FiO2 08/02/18 18:00 1 Nasal Cannula 08/02/18 14:00 98.1 103 24 128/80 (96) 1.0 I&O- Last 24 Hours up to 6 AM 08/02/18 06:00 Intake Total 1620 ml Balance 1620 ml Laboratory Data 24H LABS Laboratory Tests 2 08/02/18 08:37: Nucleated Red Blood Cells % (auto) 0.0, Anion Gap 6L, Glomerular Filtration Rate > 60.0, Blood Urea Nitrogen 15, Creatinine 0.66, Sodium Level 143, Potassium Level 3.3L, Chloride Level 110H, Carbon Dioxide Level 27, Calcium Level 8.5L, Aspartate Amino Transf (AST/SGOT) 35, Alanine Aminotransferase (ALT/SGPT) 58, Alkaline Phosphatase 86, Total Bilirubin 0.4, Total Protein 6.9, Albumin 2.3L, Magnesium Level 1.6L, Albumin/Globulin Ratio 0.50L 08/02/18 14:45: Bedside Glucose (Misc Panel) 166H CBC/BMP Laboratory Tests 08/02/18 08:37 Red Blood Count 4.30, Mean Corpuscular Volume 82.3, Mean Corpuscular Hemoglobin 27.0, Mean Corpuscular Hemoglobin Concent 32.8, Red Cell Distribution Width 16.3 H, Calcium Level 8.5 L, Aspartate Amino Transf (AST/SGOT) 35, Alanine Aminotransferase (ALT/SGPT) 58, Alkaline Phosphatase 86, Total Bilirubin 0.4, Total Protein 6.9, Albumin 2.3 L Microbiology Microbiology 07/30/18 Blood Culture - Preliminary, Resulted No Growth after 72 hours. All specime... 07/30/18 Blood Culture - Preliminary, Resulted No Growth after 72 hours. All specime... 08/02/18 Gram Stain, Received Pending 08/02/18 Sputum Culture, Received Pending 07/30/18 Urine Culture - Final, Complete Klebsiella Pneumoniae RADHA ISAAC MD Aug 02, 2018 19:51
[2018-08-02] MEDS: methylPREDNISolone INJ 125 MG/2 ML VIAL (J2930) IV SCH (20:01)
[2018-08-02 22:00] VITALS: BP 139/92
[2018-08-03] MEDS: NS 1,000 ML IV SCH ×2 (00:07→07:00)
[2018-08-03] MEDS: IPRATROPIUM 0.5MG/ALBUTEROL 2.5MG INH SOL UD 3ML (DUONEB)(J7620) NEB SCH ×5 (02:37→21:32)
[2018-08-03] MEDS: methylPREDNISolone INJ 125 MG/2 ML VIAL (J2930) IV SCH (03:25)
[2018-08-03 06:00] VITALS: BP 141/78
[2018-08-03 06:21] LABS: HEMATOCRIT 32.9 % (36.0-47.0); HEMOGLOBIN 10.9 g/dl (12.0-15.5); MEAN CORPUSCULAR HEMOGLOBIN 26.7 pg (27.0-33.0); MEAN CORPUSCULAR HGB CONC 33.1 g/dl (32.0-36.5); MEAN CORPUSCULAR VOLUME 80.4 fl (80.0-96.0); PLATELET COUNT, AUTOMATED 331 10^3/uL (150-450); RED BLOOD COUNT 4.09 10^6/uL (4.00-5.40); WHITE BLOOD COUNT 14.5 10^3/uL (4.0-10.0)
[2018-08-03 06:43] LABS: ALBUMIN 2.1 GM/DL (3.2-5.2); ALT/SGPT 55 U/L (12-78); BILIRUBIN,TOTAL 0.2 MG/DL (0.2-1.0); BLOOD UREA NITROGEN 16 MG/DL (7-18); CALCIUM LEVEL 8.7 MG/DL (8.8-10.2); CARBON DIOXIDE LEVEL 28 MEQ/L (21-32); CHLORIDE LEVEL 109 MEQ/L (98-107); CREATININE FOR GFR 0.62 MG/DL (0.55-1.30); GLOMERULAR FILTRATION RATE > 60.0 (>32); GLUCOSE, FASTING 180 MG/DL (70-100); POTASSIUM SERUM 3.9 MEQ/L (3.5-5.1); SODIUM LEVEL 142 MEQ/L (136-145); TOTAL PROTEIN 6.7 GM/DL (6.4-8.2)
[2018-08-03] MEDS: DOCUSATE SODIUM 100 MG CAP PO SCH ×2 (08:11→21:00)
[2018-08-03] MEDS: HEPARIN SOD (PORCINE) 5000 UNITS/ML VIAL SC SCH ×2 (08:11→23:08)
[2018-08-03] MEDS: ACETAMINOPHEN TAB 650MG DOSE (2X325MG) PO PRN (08:12)
[2018-08-03] MEDS: cefTRIAXone SOD 1 GM in D5W MINI-BAG PLUS 50 ML IV SCH (08:12)
[2018-08-03] MEDS ORDERED: methylPREDNISolone INJ 40 MG/1 ML VIAL (J2920) IV SCH (09:00)
[2018-08-03] MEDS: AZITHROMYCIN INJ 500 MG, VIAL MATE ADAPTER 1 EACH in D5W 250 ML IV SCH (09:32)
[2018-08-03 14:00] VITALS: BP 150/78
--- NOTE | 2018-08-03 17:43 | IPNPDOC ---
Date Seen The patient was seen on 08/03/18. Progress Note SUBJECTIVE: Patient reported feeling better today. Wheezing still persistent but had improved. Patient stated that she wants to be DNR, Form was filled out. HR 90-100s. Afebrile overnight. OBJECTIVE PHYSICAL EXAMINATION: VITAL SIGNS: Please see below. General: Weak, tremulous. Eyes: Normal sclera, EOMI, SHELDON HENT: Atraumatic, neck supple, moist mucous membranes Cardiovascular: tachycardic. Pulmonary: diffuse b/l wheezing improving GI: Soft, nontender, nondistended Skin: Warm and dry Neuro: CN grossly intact. No focal deficits. Strengths equal b/l. Psych: oriented x 3 LABORATORY DATA, IMAGING STUDIES, MICROBIOLOGY: Please see below. DVT prophylaxis ordered?: HSQ and SCD ASSESSMENT AND PLAN: 1. Pneumonia - c/w Rocephin and Zithromax. - Leukocytosis and HR improving, afebrile - Monitor O2, support as needed. - f/u sputum cultures. - Wheezing improving. Taper steroids, nebs PRN for SOB/wheeze. 2. UTI - Urine culture + klebsiella Pneumoniae - on Rocephin 3. Tachycardia - sinus tach with episodes of SVT. - Likely 2/2 Pneumonia with possible underlying pulmonary disease. - Suspicious for cor pulmonale/pulm HTN. - ECHO ordered. - Treat underlying cause, will take time to improve. Verapamil if treatment absolutely needed. VS, I&O, 24H, Fishbone Vital Signs/I&O Vital Signs Date Time Temp Pulse Resp B/P (MAP) Pulse Ox O2 Delivery O2 Flow Rate FiO2 08/03/18 14:00 96.9 100 28 150/78 (102) 96 1.0 08/02/18 18:00 Nasal Cannula I&O- Last 24 Hours up to 6 AM 08/03/18 06:00 Intake Total 1788 ml Balance 1788 ml Laboratory Data 24H LABS Laboratory Tests 2 08/03/18 05:44: Nucleated Red Blood Cells % (auto) 0.1H, Anion Gap 5L, Glomerular Filtration Rate > 60.0, Blood Urea Nitrogen 16, Creatinine 0.62, Sodium Level 142, Potassium Level 3.9, Chloride Level 109H, Carbon Dioxide Level 28, Calcium Level 8.7L, Aspartate Amino Transf (AST/SGOT) 25, Alanine Aminotransferase (ALT/SGPT) 55, Alkaline Phosphatase 92, Total Bilirubin 0.2, Total Protein 6.7, Albumin 2.1L, Albumin/Globulin Ratio 0.46L CBC/BMP Laboratory Tests 08/03/18 05:44 Red Blood Count 4.09, Mean Corpuscular Volume 80.4, Mean Corpuscular Hemoglobin 26.7 L, Mean Corpuscular Hemoglobin Concent 33.1, Red Cell Distribution Width 15.9 H, Calcium Level 8.7 L, Aspartate Amino Transf (AST/SGOT) 25, Alanine Aminotransferase (ALT/SGPT) 55, Alkaline Phosphatase 92, Total Bilirubin 0.2, Total Protein 6.7, Albumin 2.1 L Microbiology Microbiology 07/30/18 Blood Culture - Preliminary, Resulted No Growth after 72 hours. All specime... 07/30/18 Blood Culture - Preliminary, Resulted No Growth after 72 hours. All specime... 08/02/18 Gram Stain - Final, Resulted 08/02/18 Sputum Culture, Resulted Pending 07/30/18 Urine Culture - Final, Complete Klebsiella Pneumoniae RADHA ISAAC MD Aug 03, 2018 17:43
[2018-08-03 22:00] VITALS: BP 148/78
[2018-08-04] MEDS: IPRATROPIUM 0.5MG/ALBUTEROL 2.5MG INH SOL UD 3ML (DUONEB)(J7620) NEB SCH ×6 (04:00→19:53)
[2018-08-04 06:00] VITALS: BP 133/87
[2018-08-04 06:04] LABS: HEMATOCRIT 34.7 % (36.0-47.0); HEMOGLOBIN 11.1 g/dl (12.0-15.5); MEAN CORPUSCULAR VOLUME 84.4 fl (80.0-96.0); PLATELET COUNT, AUTOMATED 357 10^3/uL (150-450); RED BLOOD COUNT 4.11 10^6/uL (4.00-5.40); WHITE BLOOD COUNT 18.8 10^3/uL (4.0-10.0)
[2018-08-04 06:28] LABS: ALBUMIN 2.1 GM/DL (3.2-5.2); ALT/SGPT 70 U/L (12-78); BILIRUBIN,TOTAL 0.2 MG/DL (0.2-1.0); BLOOD UREA NITROGEN 22 MG/DL (7-18); CALCIUM LEVEL 8.7 MG/DL (8.8-10.2); CARBON DIOXIDE LEVEL 27 MEQ/L (21-32); CHLORIDE LEVEL 112 MEQ/L (98-107); GLOMERULAR FILTRATION RATE > 60.0 (>32); GLUCOSE, FASTING 116 MG/DL (70-100); SODIUM LEVEL 143 MEQ/L (136-145); TOTAL PROTEIN 6.7 GM/DL (6.4-8.2)
[2018-08-04] MEDS: predniSONE 20 MG TAB PO SCH (08:26)
[2018-08-04] MEDS: cefTRIAXone SOD 1 GM in D5W MINI-BAG PLUS 50 ML IV SCH (08:26)
[2018-08-04] MEDS: HEPARIN SOD (PORCINE) 5000 UNITS/ML VIAL SC SCH ×2 (08:27→21:18)
[2018-08-04] MEDS: DOCUSATE SODIUM 100 MG CAP PO SCH ×3 (08:27→21:18)
[2018-08-04] MEDS ORDERED: methylPREDNISolone INJ 40 MG/1 ML VIAL (J2920) IV SCH (09:00)
[2018-08-04] MEDS: AZITHROMYCIN INJ 500 MG, VIAL MATE ADAPTER 1 EACH in D5W 250 ML IV SCH (10:54)
[2018-08-04 14:00] VITALS: BP 148/80
[2018-08-04] MEDS ORDERED: FUROSEMIDE 100 MG/10 ML VIAL (J1940) IV ONE (14:00)
[2018-08-04 15:17] VITALS: O2SAT 94
--- NOTE | 2018-08-04 16:20 | IPNPDOC ---
Date Seen The patient was seen on 08/04/18. Progress Note SUBJECTIVE: Patient reported feeling relatively unchanged. Sounds crackly in oropharynx although no significant crackles in lung bases. To get a dose of IV lasix today. OBJECTIVE PHYSICAL EXAMINATION: VITAL SIGNS: Please see below. General: Weak, tremulous. Eyes: Normal sclera, EOMI, SHELDON HENT: Atraumatic, neck supple, moist mucous membranes Cardiovascular: Normal rate. Pulmonary: Decrease air entry b/l. GI: Soft, nontender, nondistended Skin: Warm and dry Neuro: CN grossly intact. No focal deficits. Strengths equal b/l. Psych: oriented x 3 LABORATORY DATA, IMAGING STUDIES, MICROBIOLOGY: Please see below. DVT prophylaxis ordered?: HSQ and SCD ASSESSMENT AND PLAN: 1. Pneumonia - c/w Rocephin and Zithromax. - Leukocytosis and HR improving, afebrile - Monitor O2, support as needed. - f/u sputum cultures. - Wheezing improving. Taper steroids, nebs PRN for SOB/wheeze. 2. UTI - Urine culture + klebsiella Pneumoniae - on Rocephin 3. Tachycardia - resolved. - sinus tach with episodes of SVT. No reported recurrence overnight. - Likely 2/2 Pneumonia with possible underlying pulmonary disease. - Suspicious for cor pulmonale/pulm HTN. - ECHO ordered. - Treat underlying cause, will take time to improve. Verapamil if treatment absolutely needed. VS, I&O, 24H, Fishbone Vital Signs/I&O Vital Signs Date Time Temp Pulse Resp B/P (MAP) Pulse Ox O2 Delivery O2 Flow Rate FiO2 08/04/18 15:17 94 Nasal Cannula 1.0 08/04/18 14:00 96.4 92 17 148/80 (102) 08/03/18 21:00 96 I&O- Last 24 Hours up to 6 AM 08/04/18 06:00 Intake Total 1745 ml Balance 1745 ml Laboratory Data 24H LABS Laboratory Tests 2 08/04/18 05:41: Nucleated Red Blood Cells % (auto) 0.0, Anion Gap 4L, Glomerular Filtration Rate > 60.0, Blood Urea Nitrogen 22H, Creatinine 0.70, Sodium Level 143, Potassium Level 4.0, Chloride Level 112H, Carbon Dioxide Level 27, Calcium Level 8.7L, Aspartate Amino Transf (AST/SGOT) 42H, Alanine Aminotransferase (ALT/SGPT) 70, Alkaline Phosphatase 92, Total Bilirubin 0.2, Total Protein 6.7, Albumin 2.1L, Albumin/Globulin Ratio 0.46L CBC/BMP Laboratory Tests 08/04/18 05:41 Red Blood Count 4.11, Mean Corpuscular Volume 84.4, Mean Corpuscular Hemoglobin 27.0, Mean Corpuscular Hemoglobin Concent 32.0, Red Cell Distribution Width 16.4 H, Calcium Level 8.7 L, Aspartate Amino Transf (AST/SGOT) 42 H, Alanine Aminotransferase (ALT/SGPT) 70, Alkaline Phosphatase 92, Total Bilirubin 0.2, Total Protein 6.7, Albumin 2.1 L Microbiology Microbiology 07/30/18 Blood Culture - Final, Complete NO GROWTH AFTER 5 DAYS 07/30/18 Blood Culture - Final, Complete NO GROWTH AFTER 5 DAYS 08/02/18 Gram Stain - Final, Complete 08/02/18 Sputum Culture - Final, Complete 07/30/18 Urine Culture - Final, Complete Klebsiella Pneumoniae RADHA ISAAC MD Aug 04, 2018 16:20
[2018-08-04 21:30] VITALS: O2SAT 94
[2018-08-04 22:00] VITALS: BP 138/70
[2018-08-05] MEDS: IPRATROPIUM 0.5MG/ALBUTEROL 2.5MG INH SOL UD 3ML (DUONEB)(J7620) NEB SCH ×6 (00:08→19:21)
[2018-08-05 06:00] VITALS: BP 140/79
--- NOTE | 2018-08-05 06:29 | ECHO ---
DATE OF PROCEDURE: 08/04/2018 DATE OF : 1935 AGE: 82 REFERRING PROVIDER: Dr. Vail PATIENT LOCATION: Room 4208 REASON FOR ECHOCARDIOGRAM: Cardiac arrhythmias. 2-D MEASUREMENTS: IVS: 1.1 cm LV: 5.2 cm LVPW: 1.1 cm LA: 3.8 cm Aorta: 2.6 cm IVC: 2.7 cm DOPPLER MEASUREMENTS: Peak velocity across the aortic valve: 3.5 m/s Peak velocity across the LVOT: 0.8 m/s Peak gradient across the aortic valve: 48 mmHg Mean gradient across the aortic valve: 31 mmHg 2-D COMMENTS: 1. Technically limited study due to poor acoustic window. The endocardium was not well visualized. 2. Normal left ventricular size and systolic function. The calculated global left ventricular systolic ejection fraction is 60-65%. Could not rule out mild concentric left ventricular hypertrophy. 3. The left atrium appeared to be normal in size in limited views. The right atrium and the right ventricle were not well visualized. 4. The atrial septum appeared to be normal without evidence of defect or shunt. 5. Normal aortic root. 6. No pericardial effusion seen in limited views. 7. Calcified aortic valve with decrease in leaflet excursion. Mildly calcified mitral annulus with normal anterior mitral valve leaflet motion. The tricuspid valve and the pulmonic valve were not well visualized. The proximal pulmonary artery branches were not visualized. 8. The inferior vena cava was dilated, central venous pressure is probably elevated. DOPPLER: Detects trace aortic radiation and trace mitral regurgitation. Abnormal relaxation pattern was noted across the mitral valve leaflets as well as the mitral valve annulus consistent with a delayed relaxation. IMPRESSION: 1. Normal global left ventricular systolic function. There are features of left ventricular diastolic dysfunction manifested by abnormal relaxation. 2. Aortic valve sclerosis with trace aortic regurgitation and probably moderate aortic stenosis. 3. Mitral annulus calcification with trace mitral regurgitation, but no mitral stenosis. 4. The inferior vena cava was mildly enlarged, central venous pressure is probably elevated. MTDD
[2018-08-05 06:35] LABS: HEMATOCRIT 34.3 % (36.0-47.0); MEAN CORPUSCULAR HEMOGLOBIN 26.8 pg (27.0-33.0); MEAN CORPUSCULAR HGB CONC 32.1 g/dl (32.0-36.5); MEAN CORPUSCULAR VOLUME 83.5 fl (80.0-96.0); PLATELET COUNT, AUTOMATED 375 10^3/uL (150-450); RED BLOOD COUNT 4.11 10^6/uL (4.00-5.40); WHITE BLOOD COUNT 13.3 10^3/uL (4.0-10.0)
[2018-08-05 06:55] LABS: ALT/SGPT 73 U/L (12-78); BILIRUBIN,TOTAL 0.2 MG/DL (0.2-1.0); BLOOD UREA NITROGEN 24 MG/DL (7-18); CALCIUM LEVEL 8.7 MG/DL (8.8-10.2); CARBON DIOXIDE LEVEL 32 MEQ/L (21-32); CHLORIDE LEVEL 108 MEQ/L (98-107); CREATININE FOR GFR 0.66 MG/DL (0.55-1.30); GLOMERULAR FILTRATION RATE > 60.0 (>32); GLUCOSE, FASTING 103 MG/DL (70-100); POTASSIUM SERUM 3.5 MEQ/L (3.5-5.1); SODIUM LEVEL 144 MEQ/L (136-145); TOTAL PROTEIN 6.3 GM/DL (6.4-8.2)
[2018-08-05 09:00] VITALS: O2SAT 95
--- NOTE | 2018-08-05 09:27 | REP ---
CT of the chest without IV contrast: Comparison is the portable plain film study of 07/30/2018. There are bilateral pleural effusions. The left pleural effusion is larger. There is compression atelectasis of the lung lower lobes adjacent to the pleural effusions. No masses or nodules are identified. There are enlarged mediastinal nodes measuring up to 10 mm short axis. The study is insensitive for hilar lymph node enlargement in the absence of IV contrast. There is no axillary lymph node enlargement. The unenhanced thoracic aorta is unremarkable. Cardiac size is normal. There is calcified vascular atheroma in the coronary arteries. Upper abdomen: The adrenals are unremarkable. The visualized upper abdominal contents are otherwise unremarkable. Impression: Moderate bilateral pleural effusions with compression atelectasis of the adjacent lung. The left pleural effusion is larger. Electronically Signed by Ramu Navarro MD 08/05/2018 09:18 A
[2018-08-05] MEDS: HEPARIN SOD (PORCINE) 5000 UNITS/ML VIAL SC SCH ×2 (09:35→20:22)
[2018-08-05] MEDS: predniSONE 20 MG TAB PO SCH (09:35)
[2018-08-05] MEDS: DOCUSATE SODIUM 100 MG CAP PO SCH ×2 (09:35→20:22)
[2018-08-05] MEDS: cefTRIAXone SOD 1 GM in D5W MINI-BAG PLUS 50 ML IV SCH (09:36)
[2018-08-05] MEDS: AZITHROMYCIN INJ 500 MG, VIAL MATE ADAPTER 1 EACH in D5W 250 ML IV SCH (10:19)
[2018-08-05 14:00] VITALS: BP 117/78
--- NOTE | 2018-08-05 16:05 | IPNPDOC ---
Date Seen The patient was seen on 08/05/18. Progress Note SUBJECTIVE: Patient reported feeling relatively unchanged. Sounds crackly in oropharynx although no significant crackles in lung bases. To get a dose of IV lasix today. OBJECTIVE PHYSICAL EXAMINATION: VITAL SIGNS: Please see below. General: Weak, tremulous. Eyes: Normal sclera, EOMI, SHELDON HENT: Atraumatic, neck supple, moist mucous membranes Cardiovascular: Normal rate. Pulmonary: Decrease air entry b/l. GI: Soft, nontender, nondistended Skin: Warm and dry Neuro: CN grossly intact. No focal deficits. Strengths equal b/l. Psych: oriented x 3 LABORATORY DATA, IMAGING STUDIES, MICROBIOLOGY: Please see below. DVT prophylaxis ordered?: HSQ and SCD ASSESSMENT AND PLAN: 1. Pneumonia - c/w Rocephin and Zithromax. - Leukocytosis and HR improving, afebrile. However, clinical does not seem to improve much. - Monitor O2, support as needed. - sputum cultures negative. - Wheezing improving. Taper steroids, nebs PRN for SOB/wheeze. - b/l pleural effusion noted, concern for parapneumonic process. IR consult for diagnostic thoracentesis. - c/w broad spectrum Abx and consider Pulm/CT surgery consult if symptoms not improving. - Also started on IV lasix high dose. 2. UTI - Urine culture + klebsiella Pneumoniae - on Rocephin 3. Tachycardia - resolved. - sinus tach with episodes of SVT. - Likely 2/2 Pneumonia with possible underlying pulmonary disease. - Suspicious for cor pulmonale/pulm HTN. ECHO noted, preserved EF. - Verapamil if treatment absolutely needed. VS, I&O, 24H, [facility] Vital Signs/I&O Vital Signs Date Time Temp Pulse Resp B/P (MAP) Pulse Ox O2 Delivery O2 Flow Rate FiO2 08/05/18 14:00 97.5 89 16 117/78 (91) 94 1.0 08/05/18 09:00 Nasal Cannula 08/03/18 21:00 96 I&O- Last 24 Hours up to 6 AM 08/05/18 06:00 Intake Total 1580 ml Output Total 0 ml Balance 1580 ml Laboratory Data 24H LABS Laboratory Tests 2 08/05/18 05:47: Nucleated Red Blood Cells % (auto) 0.0, Anion Gap 4L, Glomerular Filtration Rate > 60.0, Blood Urea Nitrogen 24H, Creatinine 0.66, Sodium Level 144, Potassium Level 3.5, Chloride Level 108H, Carbon Dioxide Level 32, Calcium Level 8.7L, Aspartate Amino Transf (AST/SGOT) 30, Alanine Aminotransferase (ALT/SGPT) 73, Alkaline Phosphatase 78, Total Bilirubin 0.2, Total Protein 6.3L, Albumin 2.0L, Albumin/Globulin Ratio 0.47L CBC/BMP Laboratory Tests 08/05/18 05:47 Red Blood Count 4.11, Mean Corpuscular Volume 83.5, Mean Corpuscular Hemoglobin 26.8 L, Mean Corpuscular Hemoglobin Concent 32.1, Red Cell Distribution Width 16.6 H, Calcium Level 8.7 L, Aspartate Amino Transf (AST/SGOT) 30, Alanine Aminotransferase (ALT/SGPT) 73, Alkaline Phosphatase 78, Total Bilirubin 0.2, Total Protein 6.3 L, Albumin 2.0 L Microbiology Microbiology 07/30/18 Blood Culture - Final, Complete NO GROWTH AFTER 5 DAYS 07/30/18 Blood Culture - Final, Complete NO GROWTH AFTER 5 DAYS 08/02/18 Gram Stain - Final, Complete 08/02/18 Sputum Culture - Final, Complete 07/30/18 Urine Culture - Final, Complete Klebsiella Pneumoniae RADHA ISAAC MD Aug 05, 2018 16:04
[2018-08-05] MEDS: FUROSEMIDE 100 MG/10 ML VIAL (J1940) IV SCH (16:36)
[2018-08-05] MEDS ORDERED: FUROSEMIDE 100 MG/10 ML VIAL (J1940) IV SCH (17:00)
[2018-08-05 20:30] VITALS: O2SAT 94
[2018-08-05 22:00] VITALS: BP 133/74
[2018-08-06] VITALS (8 sets, daily range): BP systolic 121–143; BP diastolic 58–80; O2SAT 94
[2018-08-06] MEDS: IPRATROPIUM 0.5MG/ALBUTEROL 2.5MG INH SOL UD 3ML (DUONEB)(J7620) NEB SCH ×7 (00:02→23:56)
[2018-08-06 06:50] LABS: HEMATOCRIT 33.4 % (36.0-47.0); HEMOGLOBIN 10.9 g/dl (12.0-15.5); MEAN CORPUSCULAR HEMOGLOBIN 26.3 pg (27.0-33.0); MEAN CORPUSCULAR HGB CONC 32.6 g/dl (32.0-36.5); MEAN CORPUSCULAR VOLUME 80.7 fl (80.0-96.0); PLATELET COUNT, AUTOMATED 364 10^3/uL (150-450); RED BLOOD COUNT 4.14 10^6/uL (4.00-5.40); WHITE BLOOD COUNT 12.7 10^3/uL (4.0-10.0)
[2018-08-06 07:20] LABS: ALBUMIN 2.1 GM/DL (3.2-5.2); ALT/SGPT 76 U/L (12-78); BILIRUBIN,TOTAL 0.3 MG/DL (0.2-1.0); BLOOD UREA NITROGEN 21 MG/DL (7-18); CALCIUM LEVEL 8.7 MG/DL (8.8-10.2); CARBON DIOXIDE LEVEL 33 MEQ/L (21-32); CHLORIDE LEVEL 103 MEQ/L (98-107); CREATININE FOR GFR 0.64 MG/DL (0.55-1.30); GLOMERULAR FILTRATION RATE > 60.0 (>32); GLUCOSE, FASTING 111 MG/DL (70-100); POTASSIUM SERUM 3.3 MEQ/L (3.5-5.1); SODIUM LEVEL 142 MEQ/L (136-145); TOTAL PROTEIN 6.3 GM/DL (6.4-8.2)
[2018-08-06] MEDS: HEPARIN SOD (PORCINE) 5000 UNITS/ML VIAL SC SCH ×2 (07:56→21:25)
[2018-08-06] MEDS: DOCUSATE SODIUM 100 MG CAP PO SCH ×2 (08:12→21:25)
[2018-08-06] MEDS: predniSONE 20 MG TAB PO SCH (08:12)
[2018-08-06] MEDS: FUROSEMIDE 100 MG/10 ML VIAL (J1940) IV SCH ×3 (08:13→17:10)
[2018-08-06] MEDS: cefTRIAXone SOD 1 GM in D5W MINI-BAG PLUS 50 ML IV SCH (08:13)
[2018-08-06 08:25] LABS: LDH LACTATE DEHYDROGENASE 188 U/L (84-246)
--- NOTE | 2018-08-06 09:42 | REP ---
Portable chest x-ray: Single view. History: Assess pleural effusion. Comparison chest x-ray: July 30, 2018. Findings: The pleural angles are sharp. Heart size is normal. EKG monitoring electrodes and oxygen delivery tubing are seen. Increased markings are seen in the bases bilaterally. Findings are essentially unchanged. CT study from August 05 showed small bilateral pleural effusions. Electronically Signed by Ran Wallace MD 08/06/2018 09:34 A
[2018-08-06] MEDS ORDERED: LIDOCAINE 1% MDV 20ML VIAL As Ordered ONE (10:07)
[2018-08-06 11:19] LABS: APPEARANCE, BODY FLUID CLOTTED (CLEAR); PLEURAL FL COLOR PINK (COLORLESS); SOURCE, BODY FLUID PLEURAL; SOURCE, BODY FLUID pH PLEURAL
--- NOTE | 2018-08-06 11:42 | REP ---
POST THORACENTESIS CHEST: Two views of the chest are performed status post left thoracentesis. There is no pneumothorax. Mild residual effusions are seen bilaterally. Lungs are unchanged in appearance. IMPRESSION: No pneumothorax status post thoracentesis. Electronically Signed by Ramu Centeno MD 08/06/2018 12:08 P
[2018-08-06] MEDS: AZITHROMYCIN INJ 500 MG, VIAL MATE ADAPTER 1 EACH in D5W 250 ML IV SCH (11:50)
[2018-08-06 11:54] LABS: AMYLASE, BODY FLUID 10 U/L (NOT ESTABLISHED); LDH, BODY FLUID 112 U/L (NOT ESTABLISHED); SOURCE, BODY FLUID ALBUMIN PLEURAL; SOURCE, BODY FLUID AMYLASE PLEURAL; SOURCE, BODY FLUID GLUCOSE PLEURAL; SOURCE, BODY FLUID LDH PLEURAL; SOURCE, BODY FLUID TOT PROTEIN PLEURAL; TOTAL PROTEIN, BODY FLUID 1.8 G/DL (NOT ESTABLISHED)
[2018-08-06] MEDS ORDERED: POTASSIUM CHLORIDE 10 MEQ SR TABLET PO ONE (13:00)
--- NOTE | 2018-08-06 14:44 | REP ---
Ultrasound-guided thoracentesis The procedure was performed by SANDY Chow, under the personal supervision of Dr. Centeno. The risks and benefits of the procedure were explained to the patient and informed consent was obtained both verbally and written. Directly prior to the start of the procedure, a formal timeout was completed in the exam room. Pleural fluid in the left lung zone was localized using ultrasound guidance. The skin was prepped and draped in a sterile fashion. 10 of 1% lidocaine was used as a local anesthetic. Using ultrasound guidance, an 8-Filipino multiphase side-hole catheter was inserted and advanced into the fluid. 12 ml of clear yellow colored fluid was withdrawn and sent to the lab for analysis. Directly after inserting the catheter the patient moved, and no more fluid was able to be withdrawn, and the catheter was removed. The patient tolerated the procedure well and there were no immediate complications. Reviewed by SANDY Long 08/06/2018 01:24 P Electronically Signed by Ramu Centeno MD 08/06/2018 02:35 P
--- NOTE | 2018-08-06 15:43 | IPNPDOC ---
Date Seen The patient was seen on 08/06/18. Progress Note SUBJECTIVE: Patient looked better today. Reported feeling slightly better as well. Was taken to IR for diagnostic tap, unable to withdraw more fluid as patient can not sit still likely due to weakness. Started on high dose IV lasix yesterday. Monitoring I/O. Several episodes of non sustained SVT were also noted on telemetry. OBJECTIVE PHYSICAL EXAMINATION: VITAL SIGNS: Please see below. General: Weak, tremulous. Eyes: Normal sclera, EOMI, SHELDON HENT: Atraumatic, neck supple, moist mucous membranes Cardiovascular: Normal rate. Pulmonary: mild b/l wheezing. GI: Soft, nontender, nondistended Skin: Warm and dry Neuro: CN grossly intact. No focal deficits. Strengths equal b/l. Psych: oriented x 3 LABORATORY DATA, IMAGING STUDIES, MICROBIOLOGY: Please see below. DVT prophylaxis ordered?: HSQ and SCD ASSESSMENT AND PLAN: 1. Pneumonia - c/w Rocephin and Zithromax. - Leukocytosis and HR improving, afebrile. However, clinical does not seem to improve much. - Monitor O2, support as needed. - sputum cultures negative. - aper steroids, nebs PRN for SOB/wheeze. - b/l pleural effusion noted, concern for parapneumonic process. s/p thoracentesis with IR. - Only able to obtain about 12cc of fluid as patient cannot remain still. - f/u finding and c/w diuresis at this time. Will re-attempt for therapeutic tap if does not improve with diuresis and symptomatic. - c/w Abx for about 7-10 days. Consider Pulm/CT surgery consult if symptoms not improving. - Also started on IV lasix high dose. 2. UTI - Urine culture + klebsiella Pneumoniae - on Rocephin 3. Tachycardia - resolved. - sinus tach with episodes of SVT. - Likely 2/2 Pneumonia with possible underlying pulmonary disease. - Suspicious for cor pulmonale/pulm HTN. ECHO noted, preserved EF. - Verapamil if treatment absolutely needed. VS, I&O, 24H, Fishbone Vital Signs/I&O Vital Signs Date Time Temp Pulse Resp B/P (MAP) Pulse Ox O2 Delivery O2 Flow Rate FiO2 08/06/18 14:00 97.9 103 22 121/58 (79) 94 1.0 08/06/18 09:00 Nasal Cannula 08/03/18 21:00 96 I&O- Last 24 Hours up to 6 AM 08/06/18 06:00 Intake Total 868 ml Output Total 700 ml Balance 168 ml Laboratory Data 24H LABS Laboratory Tests 2 08/06/18 06:36: Nucleated Red Blood Cells % (auto) 0.0, Anion Gap 6L, Glomerular Filtration Rate > 60.0, Blood Urea Nitrogen 21H, Creatinine 0.64, Sodium Level 142, Potassium Level 3.3L, Chloride Level 103, Carbon Dioxide Level 33H, Calcium Level 8.7L, Aspartate Amino Transf (AST/SGOT) 32, Alanine Aminotransferase (ALT/SGPT) 76, Lactate Dehydrogenase 188, Alkaline Phosphatase 76, Total Bilirubin 0.3, Total Protein 6.3L, Albumin 2.1L, Albumin/Globulin Ratio 0.50L 08/06/18 07:42: Body Fluid pH , Body Fluid pH Source PLEURAL, Body Fluid WBC (Auto) , Body Fluid RBC (Auto) , Body Fluid Glucose Source PLEURAL, Body Fluid Glucose 116, Body Fluid Protein Source PLEURAL, Body Fluid Total Protein 1.8, Body Fluid Albumin Source PLEURAL, Body Fluid Albumin 1.0, Body Fluid LDH Source PLEURAL, Body Fluid Lactate Dehydrogenase 112, Body Fluid Amylase Source PLEURAL, Body Fluid Amylase 10, Pleural Fluid Source PLEURAL, Pleural Fluid Color PINK, Pleural Fluid Appearance CLOTTED CBC/BMP Laboratory Tests 08/06/18 06:36 Red Blood Count 4.14, Mean Corpuscular Volume 80.7, Mean Corpuscular Hemoglobin 26.3 L, Mean Corpuscular Hemoglobin Concent 32.6, Red Cell Distribution Width 16.2 H, Calcium Level 8.7 L, Aspartate Amino Transf (AST/SGOT) 32, Alanine Aminotransferase (ALT/SGPT) 76, Lactate Dehydrogenase 188, Alkaline Phosphatase 76, Total Bilirubin 0.3, Total Protein 6.3 L, Albumin 2.1 L Microbiology Microbiology 07/30/18 Blood Culture - Final, Complete NO GROWTH AFTER 5 DAYS 07/30/18 Blood Culture - Final, Complete NO GROWTH AFTER 5 DAYS 08/06/18 Acid Fast Stain, Received Pending 08/06/18 Mycobacterial Culture, Received Pending 08/06/18 Fungal Smear, Received Pending 08/06/18 Fungal Culture, Received Pending 08/06/18 Gram Stain - Final, Resulted 08/06/18 Anaerobic Culture, Resulted Pending 08/06/18 Body Fluid Culture, Received Pending 08/02/18 Gram Stain - Final, Complete 08/02/18 Sputum Culture - Final, Complete 07/30/18 Urine Culture - Final, Complete Klebsiella Pneumoniae RADHA ISAAC MD Aug 06, 2018 15:43
[2018-08-07 02:10] VITALS: O2SAT 95
[2018-08-07] MEDS: IPRATROPIUM 0.5MG/ALBUTEROL 2.5MG INH SOL UD 3ML (DUONEB)(J7620) NEB SCH ×6 (04:00→23:32)
[2018-08-07 06:00] VITALS: BP 136/83
[2018-08-07 06:16] LABS: HEMATOCRIT 36.9 % (36.0-47.0); HEMOGLOBIN 11.6 g/dl (12.0-15.5); MEAN CORPUSCULAR HEMOGLOBIN 25.6 pg (27.0-33.0); MEAN CORPUSCULAR HGB CONC 31.4 g/dl (32.0-36.5); MEAN CORPUSCULAR VOLUME 81.3 fl (80.0-96.0); PLATELET COUNT, AUTOMATED 357 10^3/uL (150-450); RED BLOOD COUNT 4.54 10^6/uL (4.00-5.40); WHITE BLOOD COUNT 11.2 10^3/uL (4.0-10.0)
[2018-08-07 06:52] LABS: ALBUMIN 2.3 GM/DL (3.2-5.2); ALT/SGPT 72 U/L (12-78); BILIRUBIN,TOTAL 0.2 MG/DL (0.2-1.0); BLOOD UREA NITROGEN 24 MG/DL (7-18); CALCIUM LEVEL 8.9 MG/DL (8.8-10.2); CARBON DIOXIDE LEVEL 37 MEQ/L (21-32); CHLORIDE LEVEL 103 MEQ/L (98-107); CREATININE FOR GFR 0.65 MG/DL (0.55-1.30); GLOMERULAR FILTRATION RATE > 60.0 (>32); GLUCOSE, FASTING 114 MG/DL (70-100); POTASSIUM SERUM 3.5 MEQ/L (3.5-5.1); SODIUM LEVEL 143 MEQ/L (136-145); TOTAL PROTEIN 6.5 GM/DL (6.4-8.2)
[2018-08-07] MEDS: DOCUSATE SODIUM 100 MG CAP PO SCH ×2 (08:22→21:00)
[2018-08-07] MEDS: FUROSEMIDE 100 MG/10 ML VIAL (J1940) IV SCH ×2 (08:22→17:41)
[2018-08-07] MEDS: HEPARIN SOD (PORCINE) 5000 UNITS/ML VIAL SC SCH ×2 (08:23→21:08)
[2018-08-07] MEDS: cefTRIAXone SOD 1 GM in D5W MINI-BAG PLUS 50 ML IV SCH (08:23)
[2018-08-07] MEDS: AZITHROMYCIN INJ 500 MG, VIAL MATE ADAPTER 1 EACH in D5W 250 ML IV SCH (09:30)
--- NOTE | 2018-08-07 13:14 | IPNPDOC ---
Date Seen The patient was seen on 08/07/18. Progress Note SUBJECTIVE: Patient appeared better and reported feeling slightly improved. Unable to obtain adequate sample for diagnostic from thoracentesis yesterday. States that she does not want to repeat. Switched to IV lasix yesterday. OBJECTIVE PHYSICAL EXAMINATION: VITAL SIGNS: Please see below. General: Weak, no acute distress. Eyes: Normal sclera, EOMI, SHELDON HENT: Atraumatic, neck supple, moist mucous membranes Cardiovascular: Normal rate. Pulmonary: mild b/l wheezing. GI: Soft, nontender, nondistended Skin: Warm and dry Neuro: CN grossly intact. No focal deficits. Strengths equal b/l. Psych: oriented x 3 LABORATORY DATA, IMAGING STUDIES, MICROBIOLOGY: Please see below. DVT prophylaxis ordered?: HSQ and SCD ASSESSMENT AND PLAN: 1. Pneumonia - c/w Rocephin and Zithromax. Plan on discontinuing after thursday, to complete 10 day course given complicated PNA with pleural effusion. - Leukocytosis and HR improving, afebrile. - Monitor O2, support as needed. - sputum cultures negative. - nebs PRN for SOB/wheeze. - b/l pleural effusion noted, concern for parapneumonic process. s/p thoracentesis with IR, does not have significant findings from what can be tested. - Only able to obtain about 12cc of fluid as patient cannot remain still. - f/u finding and c/w diuresis at this time. Consider re-attempt but patient currently refusing at this time. - c/w Abx for about 7-10 days. - Also started on IV lasix high dose. 2. UTI - Urine culture + klebsiella Pneumoniae - on Rocephin 3. Tachycardia - resolved. - sinus tach with episodes of SVT. - Likely 2/2 Pneumonia with possible underlying pulmonary disease. - Suspicious for cor pulmonale/pulm HTN. ECHO noted, preserved EF. - Verapamil if treatment absolutely needed. VS, I&O, 24H, Fishbone Vital Signs/I&O Vital Signs Date Time Temp Pulse Resp B/P (MAP) Pulse Ox O2 Delivery O2 Flow Rate FiO2 08/07/18 06:00 96.5 87 20 136/83 (100) 97 1.0 08/07/18 02:10 Nasal Cannula 08/03/18 21:00 96 I&O- Last 24 Hours up to 6 AM 6/22/19 06:00 Intake Total 968 ml Output Total 2300 ml Balance -1332 ml Laboratory Data 24H LABS Laboratory Tests 2 08/07/18 05:40: Nucleated Red Blood Cells % (auto) 0.0, Anion Gap 3L, Glomerular Filtration Rate > 60.0, Blood Urea Nitrogen 24H, Creatinine 0.65, Sodium Level 143, Potassium Level 3.5, Chloride Level 103, Carbon Dioxide Level 37H, Calcium Level 8.9, Aspartate Amino Transf (AST/SGOT) 28, Alanine Aminotransferase (ALT/SGPT) 72, Alkaline Phosphatase 74, Total Bilirubin 0.2, Total Protein 6.5, Albumin 2.3L, Albumin/Globulin Ratio 0.55L CBC/BMP Laboratory Tests 08/07/18 05:40 Red Blood Count 4.54, Mean Corpuscular Volume 81.3, Mean Corpuscular Hemoglobin 25.6 L, Mean Corpuscular Hemoglobin Concent 31.4 L, Red Cell Distribution Width 16.4 H, Calcium Level 8.9, Aspartate Amino Transf (AST/SGOT) 28, Alanine Aminotransferase (ALT/SGPT) 72, Alkaline Phosphatase 74, Total Bilirubin 0.2, Total Protein 6.5, Albumin 2.3 L Microbiology Microbiology 07/30/18 Blood Culture - Final, Complete NO GROWTH AFTER 5 DAYS 07/30/18 Blood Culture - Final, Complete NO GROWTH AFTER 5 DAYS 08/06/18 Acid Fast Stain, Received Pending 08/06/18 Mycobacterial Culture, Received Pending 08/06/18 Fungal Smear, Received Pending 08/06/18 Fungal Culture, Received Pending 08/06/18 Gram Stain - Final, Resulted 08/06/18 Anaerobic Culture, Resulted Pending 08/06/18 Body Fluid Culture, Received Pending 08/02/18 Gram Stain - Final, Complete 08/02/18 Sputum Culture - Final, Complete 07/30/18 Urine Culture - Final, Complete Klebsiella Pneumoniae RADHA ISAAC MD Aug 07, 2018 13:14
[2018-08-07 14:00] VITALS: BP 126/71
[2018-08-07 22:00] VITALS: BP 127/66
[2018-08-08] VITALS (7 sets, daily range): BP systolic 127–141; BP diastolic 68–79; O2SAT 91–94
[2018-08-08] MEDS: IPRATROPIUM 0.5MG/ALBUTEROL 2.5MG INH SOL UD 3ML (DUONEB)(J7620) NEB SCH ×5 (04:00→21:06)
[2018-08-08 06:21] LABS: HEMATOCRIT 39.7 % (36.0-47.0); HEMOGLOBIN 12.8 g/dl (12.0-15.5); MEAN CORPUSCULAR HEMOGLOBIN 26.1 pg (27.0-33.0); MEAN CORPUSCULAR HGB CONC 32.2 g/dl (32.0-36.5); MEAN CORPUSCULAR VOLUME 80.9 fl (80.0-96.0); PLATELET COUNT, AUTOMATED 376 10^3/uL (150-450); RED BLOOD COUNT 4.91 10^6/uL (4.00-5.40); WHITE BLOOD COUNT 15.5 10^3/uL (4.0-10.0)
[2018-08-08 06:43] LABS: ALBUMIN 2.4 GM/DL (3.2-5.2); ALT/SGPT 70 U/L (12-78); BILIRUBIN,TOTAL 0.4 MG/DL (0.2-1.0); BLOOD UREA NITROGEN 25 MG/DL (7-18); CALCIUM LEVEL 8.8 MG/DL (8.8-10.2); CARBON DIOXIDE LEVEL 37 MEQ/L (21-32); CHLORIDE LEVEL 98 MEQ/L (98-107); GLOMERULAR FILTRATION RATE > 60.0 (>32); GLUCOSE, FASTING 125 MG/DL (70-100); SODIUM LEVEL 141 MEQ/L (136-145)
[2018-08-08] MEDS ORDERED: POTASSIUM CHLORIDE 10 MEQ SR TABLET PO ONE ×2 (08:15→10:00)
[2018-08-08] MEDS: HEPARIN SOD (PORCINE) 5000 UNITS/ML VIAL SC SCH ×2 (09:26→22:36)
[2018-08-08] MEDS: DOCUSATE SODIUM 100 MG CAP PO SCH ×2 (09:26→21:00)
[2018-08-08] MEDS: FUROSEMIDE 100 MG/10 ML VIAL (J1940) IV SCH ×2 (09:26→16:51)
[2018-08-08] MEDS: cefTRIAXone SOD 1 GM in D5W MINI-BAG PLUS 50 ML IV SCH (09:26)
--- NOTE | 2018-08-08 10:32 | ECGEPIP ---
[facility] Test Date: 2018-08-07 Pat Name: SUMA STEINBERG Department: Room: [place] [address] Gender: Female Senior Materials Scientist: NARCISO : [id number] Requested By: MARÍA ELENA SOTOMAYOR Order Number: [id number] Reading MD: Buck Light Measurements Intervals Early Rate: 110 P: 46 NH: 120 QRS: 9 QRSD: 124 T: 21 QT: 380 QTc: 514 Interpretive Statements Sinus tachycardia with PACs Indeterminate QRS axis Right bundle branch block Nonspecific ST-T wave abnormalities No significant change when compared to prior tracing of 07/30/2018 Electronically Signed on 08-08-2018 10:32:15 EDT by Buck Light
[2018-08-08] MEDS: AZITHROMYCIN INJ 500 MG, VIAL MATE ADAPTER 1 EACH in D5W 250 ML IV SCH (10:42)
--- NOTE | 2018-08-08 11:22 | IPNPDOC ---
Date Seen The patient was seen on 08/08/18. Progress Note SUBJECTIVE: Patient reported feeling fine but weak. Stated that she will not go for thoracentesis anymore and need to just do PT to gain strength back to go home. Noted to have multiple episodes of nonsustained SVTs overnight. Started on cardizem with improvement today. Changed to verapamil. OBJECTIVE PHYSICAL EXAMINATION: VITAL SIGNS: Please see below. General: Weak, no acute distress. Eyes: Normal sclera, EOMI, SHELDON HENT: Atraumatic, neck supple, moist mucous membranes Cardiovascular: Normal rate. Pulmonary: mild b/l wheezing. GI: Soft, nontender, nondistended Skin: Warm and dry Neuro: CN grossly intact. No focal deficits. Strengths equal b/l. Psych: oriented x 3 LABORATORY DATA, IMAGING STUDIES, MICROBIOLOGY: Please see below. DVT prophylaxis ordered?: HSQ and SCD ASSESSMENT AND PLAN: 1. Pneumonia - c/w Rocephin and Zithromax. Plan on discontinuing through thursday, to complete 10 day course given complicated PNA with pleural effusion. - Leukocytosis and HR improving, afebrile. - Monitor O2, support as needed. - sputum cultures negative. - nebs PRN for SOB/wheeze. - b/l pleural effusion noted, concern for parapneumonic process. s/p thorac entesis with IR, does not have significant findings from what can be tested. - Only able to obtain about 12cc of fluid as patient cannot remain still. Patient refusing repeat for diagnostic and therapeutic. - c/w diuresis at this time. - c/w Abx for about 10 days. 2. UTI - Urine culture + klebsiella Pneumoniae - on Rocephin. 3. Tachycardia - Episodes of SVT and sinus tachycardia. - Likely 2/2 Pneumonia with possible underlying pulmonary disease. - Suspicious for cor pulmonale/pulm HTN. ECHO noted, preserved EF. - Verapamil initiated. Monitor. Primarily needs intensive PT DVT ppx: HSQ and SCD Code status: DNR VS, I&O, 24H, Fishbone Vital Signs/I&O Vital Signs Date Time Temp Pulse Resp B/P (MAP) Pulse Ox O2 Delivery O2 Flow Rate FiO2 08/08/18 06:18 104 146/75 08/08/18 06:00 98.0 20 95 08/08/18 03:25 Room Air 08/07/18 21:30 1.0 08/03/18 21:00 96 I&O- Last 24 Hours up to 6 AM 08/08/18 06:00 Intake Total 720 ml Output Total 1400 ml Balance -680 ml Laboratory Data 24H LABS Laboratory Tests 2 08/08/18 05:50: Nucleated Red Blood Cells % (auto) 0.0, Anion Gap 6L, Glomerular Filtration Rate > 60.0, Blood Urea Nitrogen 25H, Creatinine 0.80, Sodium Level 141, Potassium Level 3.0L, Chloride Level 98, Carbon Dioxide Level 37H, Calcium Level 8.8, Aspartate Amino Transf (AST/SGOT) 29, Alanine Aminotransferase (ALT/SGPT) 70, Alkaline Phosphatase 80, Total Bilirubin 0.4#, Total Protein 7.0, Albumin 2.4L, Albumin/Globulin Ratio 0.52L CBC/BMP Laboratory Tests 08/08/18 05:50 Red Blood Count 4.91, Mean Corpuscular Volume 80.9, Mean Corpuscular Hemoglobin 26.1 L, Mean Corpuscular Hemoglobin Concent 32.2, Red Cell Distribution Width 16.3 H, Calcium Level 8.8, Aspartate Amino Transf (AST/SGOT) 29, Alanine Aminotransferase (ALT/SGPT) 70, Alkaline Phosphatase 80, Total Bilirubin 0.4 #, Total Protein 7.0, Albumin 2.4 L Microbiology Microbiology 07/30/18 Blood Culture - Final, Complete NO GROWTH AFTER 5 DAYS 07/30/18 Blood Culture - Final, Complete NO GROWTH AFTER 5 DAYS 08/06/18 Acid Fast Stain, Received Pending 08/06/18 Mycobacterial Culture, Received Pending 08/06/18 Fungal Smear, Received Pending 08/06/18 Fungal Culture, Received Pending 08/06/18 Gram Stain - Final, Complete 08/06/18 Anaerobic Culture - Final, Complete 08/06/18 Body Fluid Culture - Final, Complete 08/02/18 Gram Stain - Final, Complete 08/02/18 Sputum Culture - Final, Complete 07/30/18 Urine Culture - Final, Complete Klebsiella Pneumoniae RADHA ISAAC MD Aug 08, 2018 11:22
[2018-08-08] MEDS: VERAPAMIL 40 MG TAB PO SCH ×2 (15:13→22:40)
[2018-08-09] MEDS: IPRATROPIUM 0.5MG/ALBUTEROL 2.5MG INH SOL UD 3ML (DUONEB)(J7620) NEB SCH ×6 (04:00→19:38)
[2018-08-09] MEDS: VERAPAMIL 40 MG TAB PO SCH ×3 (05:45→21:21)
[2018-08-09 06:00] VITALS: BP 124/79
[2018-08-09 06:44] LABS: HEMATOCRIT 41.7 % (36.0-47.0); HEMOGLOBIN 13.6 g/dl (12.0-15.5); MEAN CORPUSCULAR HGB CONC 32.6 g/dl (32.0-36.5); MEAN CORPUSCULAR VOLUME 82.9 fl (80.0-96.0); PLATELET COUNT, AUTOMATED 371 10^3/uL (150-450); RED BLOOD COUNT 5.03 10^6/uL (4.00-5.40)
[2018-08-09 07:07] LABS: ALBUMIN 2.7 GM/DL (3.2-5.2); ALT/SGPT 62 U/L (12-78); BILIRUBIN,TOTAL 0.5 MG/DL (0.2-1.0); BLOOD UREA NITROGEN 27 MG/DL (7-18); CALCIUM LEVEL 8.8 MG/DL (8.8-10.2); CARBON DIOXIDE LEVEL 35 MEQ/L (21-32); CHLORIDE LEVEL 98 MEQ/L (98-107); CREATININE FOR GFR 0.81 MG/DL (0.55-1.30); GLOMERULAR FILTRATION RATE > 60.0 (>32); GLUCOSE, FASTING 123 MG/DL (70-100); POTASSIUM SERUM 3.2 MEQ/L (3.5-5.1); SODIUM LEVEL 139 MEQ/L (136-145); TOTAL PROTEIN 7.3 GM/DL (6.4-8.2)
[2018-08-09] MEDS: HEPARIN SOD (PORCINE) 5000 UNITS/ML VIAL SC SCH ×2 (08:45→21:21)
[2018-08-09] MEDS: DOCUSATE SODIUM 100 MG CAP PO SCH ×2 (08:45→21:20)
[2018-08-09] MEDS: FUROSEMIDE 40 MG/4 ML VIAL (J1940) IV SCH ×2 (08:45→17:29)
[2018-08-09 09:00] VITALS: O2SAT 95
--- NOTE | 2018-08-09 09:19 | REP ---
Clinical: Pleural effusion . Comparison: 08/06/2018 . Findings: The mediastinum and cardiac silhouette are stable and within normal limits for portable technique. Stable chronic interstitial changes and trace basilar atelectasis cannot be excluded. No obvious effusion. No pneumothorax. Impression: 1. Chronic stable-appearing changes along with trace basilar atelectasis cannot be excluded. 2. No obvious pleural effusion. Electronically Signed by Samson Hood MD 08/09/2018 09:10 A
--- NOTE | 2018-08-09 13:29 | IPNPDOC ---
Date Seen The patient was seen on 08/09/18. Progress Note SUBJECTIVE: Patient appeared better today. No wheezing noted on exam. Breathing well, saturating well on RA. Still weak but less tremulous OBJECTIVE PHYSICAL EXAMINATION: VITAL SIGNS: Please see below. General: Weak, no acute distress. Eyes: Normal sclera, EOMI, SHELDON HENT: Atraumatic, neck supple, moist mucous membranes Cardiovascular: Normal rate. Pulmonary: mil;d bibasilar crackles GI: Soft, nontender, nondistended Skin: Warm and dry Neuro: CN grossly intact. No focal deficits. Strengths equal b/l. Psych: oriented x 3 LABORATORY DATA, IMAGING STUDIES, MICROBIOLOGY: Please see below. DVT prophylaxis ordered?: HSQ and SCD ASSESSMENT AND PLAN: 1. Pneumonia - s/p course of Rocephin and Zithromax. - Breathing better. - sputum cultures negative. - nebs PRN for SOB/wheeze. - b/l pleural effusion noted, concern for parapneumonic process. s/p thoracentesis with IR, does not have significant findings from what can be tested. - Only able to obtain about 12cc of fluid as patient cannot remain still. Patient refusing repeat for diagnostic and therapeutic. - given b/l nature of the pleural effusion and her improvement with diuresis. Will not plan therapeutic tap at this time. - Clinically improved. Can likely be discharged after another day or two of diuresis if patient continues to do well. 2. UTI - Urine culture + klebsiella Pneumoniae - s/p Rocephin course. 3. Tachycardia - Episodes of SVT and sinus tachycardia. - Likely 2/2 Pneumonia with possible underlying pulmonary disease. - Suspicious for cor pulmonale/pulm HTN. ECHO noted, preserved EF. - Verapamil initiated with improvement. Primarily needs intensive PT DVT ppx: HSQ and SCD Code status: DNR VS, I&O, 24H, Fishbone Vital Signs/I&O Vital Signs Date Time Temp Pulse Resp B/P (MAP) Pulse Ox O2 Delivery O2 Flow Rate FiO2 08/09/18 09:00 95 Room Air 08/09/18 06:00 96.7 91 20 124/79 (94) 08/07/18 21:30 1.0 08/03/18 21:00 96 I&O- Last 24 Hours up to 6 AM 08/09/18 06:00 Intake Total 1478 ml Output Total 1200 ml Balance 278 ml Laboratory Data 24H LABS Laboratory Tests 2 08/09/18 06:29: Nucleated Red Blood Cells % (auto) 0.0, Anion Gap 6L, Glomerular Filtration Rate > 60.0, Blood Urea Nitrogen 27H, Creatinine 0.81, Sodium Level 139, Potassium Level 3.2L, Chloride Level 98, Carbon Dioxide Level 35H, Calcium Level 8.8, Aspartate Amino Transf (AST/SGOT) 25, Alanine Aminotransferase (ALT/SGPT) 62, Alkaline Phosphatase 85, Total Bilirubin 0.5, Total Protein 7.3, Albumin 2.7L, Albumin/Globulin Ratio 0.59L CBC/BMP Laboratory Tests 08/09/18 06:29 Red Blood Count 5.03, Mean Corpuscular Volume 82.9, Mean Corpuscular Hemoglobin 27.0, Mean Corpuscular Hemoglobin Concent 32.6, Red Cell Distribution Width 16.6 H, Calcium Level 8.8, Aspartate Amino Transf (AST/SGOT) 25, Alanine Aminotransferase (ALT/SGPT) 62, Alkaline Phosphatase 85, Total Bilirubin 0.5, Total Protein 7.3, Albumin 2.7 L Microbiology Microbiology 07/30/18 Blood Culture - Final, Complete NO GROWTH AFTER 5 DAYS 07/30/18 Blood Culture - Final, Complete NO GROWTH AFTER 5 DAYS 08/06/18 Acid Fast Stain, Received Pending 08/06/18 Mycobacterial Culture, Received Pending 08/06/18 Fungal Smear, Received Pending 08/06/18 Fungal Culture, Received Pending 08/06/18 Gram Stain - Final, Complete 08/06/18 Anaerobic Culture - Final, Complete 08/06/18 Body Fluid Culture - Final, Complete 08/02/18 Gram Stain - Final, Complete 08/02/18 Sputum Culture - Final, Complete 07/30/18 Urine Culture - Final, Complete Klebsiella Pneumoniae RADHA ISAAC MD Aug 09, 2018 13:29
[2018-08-09 14:00] VITALS: BP 115/56
[2018-08-09 21:00] VITALS: O2SAT 94
[2018-08-09 22:00] VITALS: BP 111/66
[2018-08-10] MEDS: IPRATROPIUM 0.5MG/ALBUTEROL 2.5MG INH SOL UD 3ML (DUONEB)(J7620) NEB SCH ×6 (04:00→19:31)
[2018-08-10 06:00] VITALS: BP 136/93
[2018-08-10] MEDS: VERAPAMIL 40 MG TAB PO SCH ×3 (06:11→21:11)
[2018-08-10 08:00] LABS: HEMOGLOBIN 13.1 g/dl (12.0-15.5); MEAN CORPUSCULAR HGB CONC 32.8 g/dl (32.0-36.5); MEAN CORPUSCULAR VOLUME 82.5 fl (80.0-96.0); PLATELET COUNT, AUTOMATED 339 10^3/uL (150-450); RED BLOOD COUNT 4.85 10^6/uL (4.00-5.40); WHITE BLOOD COUNT 10.1 10^3/uL (4.0-10.0)
[2018-08-10 08:21] LABS: BLOOD UREA NITROGEN 28 MG/DL (7-18); CARBON DIOXIDE LEVEL 35 MEQ/L (21-32); CHLORIDE LEVEL 98 MEQ/L (98-107); CREATININE FOR GFR 0.94 MG/DL (0.55-1.30); GLOMERULAR FILTRATION RATE > 60.0 (>32); GLUCOSE, FASTING 153 MG/DL (70-100); POTASSIUM SERUM 3.2 MEQ/L (3.5-5.1); SODIUM LEVEL 138 MEQ/L (136-145)
[2018-08-10] MEDS: HEPARIN SOD (PORCINE) 5000 UNITS/ML VIAL SC SCH ×2 (08:22→21:11)
[2018-08-10] MEDS: DOCUSATE SODIUM 100 MG CAP PO SCH ×2 (08:22→21:11)
[2018-08-10] MEDS: FUROSEMIDE 40 MG/4 ML VIAL (J1940) IV SCH ×2 (08:22→17:34)
--- NOTE | 2018-08-10 10:58 | IPNPDOC ---
Date Seen The patient was seen on 08/10/18. Progress Note SUBJECTIVE: Patient looks well and denies any complaints. Saturating well on RA and denies any SOB/Wheezing. weakness persistent but appear more energetic. OBJECTIVE PHYSICAL EXAMINATION: VITAL SIGNS: Please see below. General: Weak, no acute distress. Eyes: Normal sclera, EOMI, SHELDON HENT: Atraumatic, neck supple, moist mucous membranes Cardiovascular: Normal rate. Pulmonary: mil;d bibasilar crackles GI: Soft, nontender, nondistended Skin: Warm and dry Neuro: CN grossly intact. No focal deficits. Strengths equal b/l. Psych: oriented x 3 LABORATORY DATA, IMAGING STUDIES, MICROBIOLOGY: Please see below. DVT prophylaxis ordered?: HSQ and SCD ASSESSMENT AND PLAN: 1. Pneumonia - s/p course of Rocephin and Zithromax. - sputum cultures negative. - nebs PRN for SOB/wheeze. - b/l pleural effusion noted, cannot r/o parapneumonic process although likely cardiac etiology. s/p thoracentesis with IR, does not have significant findings from what can be tested. - Only able to obtain about 12cc of fluid as patient cannot remain still. Patient refusing repeat for diagnostic and therapeutic. - given b/l nature of the pleural effusion and her improvement with diuresis. Will not plan therapeutic tap at this time. - Clinically improved. Can likely be discharged after another day or two of diuresis if patient continues to do well. 2. UTI - Urine culture + klebsiella Pneumoniae - s/p Rocephin course. 3. Tachycardia - Episodes of SVT and sinus tachycardia. - Likely 2/2 Pneumonia with possible underlying pulmonary disease. - Suspicious for cor pulmonale/pulm HTN. ECHO noted, preserved EF. - Verapamil initiated with improvement. Primarily needs intensive PT DVT ppx: HSQ and SCD Code status: DNR VS, I&O, 24H, Fishbone Vital Signs/I&O Vital Signs Date Time Temp Pulse Resp B/P (MAP) Pulse Ox O2 Delivery O2 Flow Rate FiO2 08/10/18 06:11 82 136/93 08/10/18 06:00 97.1 20 91 08/09/18 21:00 Room Air 08/07/18 21:30 1.0 I&O- Last 24 Hours up to 6 AM 08/10/18 06:00 Intake Total 1170 ml Output Total 1250 ml Balance -80 ml Laboratory Data 24H LABS Laboratory Tests 2 08/10/18 07:38: Nucleated Red Blood Cells % (auto) 0.0, Anion Gap 5L, Glomerular Filtration Rate > 60.0, Blood Urea Nitrogen 28H, Creatinine 0.94, Sodium Level 138, Potassium Level 3.2L, Chloride Level 98, Carbon Dioxide Level 35H, Calcium Level 9.0 CBC/BMP Laboratory Tests 08/10/18 07:38 Red Blood Count 4.85, Mean Corpuscular Volume 82.5, Mean Corpuscular Hemoglobin 27.0, Mean Corpuscular Hemoglobin Concent 32.8, Red Cell Distribution Width 16.5 H, Calcium Level 9.0 Microbiology Microbiology 08/06/18 Acid Fast Stain, Received Pending 08/06/18 Mycobacterial Culture, Received Pending 08/06/18 Fungal Smear, Received Pending 08/06/18 Fungal Culture, Received Pending 08/06/18 Gram Stain - Final, Complete 08/06/18 Anaerobic Culture - Final, Complete 08/06/18 Body Fluid Culture - Final, Complete 08/02/18 Gram Stain - Final, Complete 08/02/18 Sputum Culture - Final, Complete RADHA ISAAC MD Aug 10, 2018 10:58
[2018-08-10] MEDS: ACETAMINOPHEN TAB 650MG DOSE (2X325MG) PO PRN (11:55)
[2018-08-10 14:00] VITALS: BP 117/78
[2018-08-10 20:53] VITALS: O2SAT 95
[2018-08-10 22:00] VITALS: BP 115/64
[2018-08-11] MEDS: IPRATROPIUM 0.5MG/ALBUTEROL 2.5MG INH SOL UD 3ML (DUONEB)(J7620) NEB SCH ×6 (05:25→19:48)
[2018-08-11 06:00] VITALS: BP 137/70
[2018-08-11] MEDS: VERAPAMIL 40 MG TAB PO SCH ×3 (06:04→23:21)
[2018-08-11 06:32] LABS: HEMATOCRIT 38.4 % (36.0-47.0); HEMOGLOBIN 12.3 g/dl (12.0-15.5); MEAN CORPUSCULAR VOLUME 81.2 fl (80.0-96.0); PLATELET COUNT, AUTOMATED 348 10^3/uL (150-450); RED BLOOD COUNT 4.73 10^6/uL (4.00-5.40)
[2018-08-11 07:07] LABS: BLOOD UREA NITROGEN 26 MG/DL (7-18); CALCIUM LEVEL 8.7 MG/DL (8.8-10.2); CARBON DIOXIDE LEVEL 34 MEQ/L (21-32); CHLORIDE LEVEL 99 MEQ/L (98-107); CREATININE FOR GFR 0.84 MG/DL (0.55-1.30); GLOMERULAR FILTRATION RATE > 60.0 (>32); GLUCOSE, FASTING 107 MG/DL (70-100); POTASSIUM SERUM 2.8 MEQ/L (3.5-5.1); SODIUM LEVEL 139 MEQ/L (136-145)
[2018-08-11] MEDS ORDERED: POTASSIUM CHLORIDE 10 MEQ SR TABLET PO ONE ×2 (07:45→10:00)
[2018-08-11] MEDS: HEPARIN SOD (PORCINE) 5000 UNITS/ML VIAL SC SCH ×2 (08:25→20:19)
[2018-08-11] MEDS: FUROSEMIDE 40 MG/4 ML VIAL (J1940) IV SCH (08:25)
[2018-08-11] MEDS: DOCUSATE SODIUM 100 MG CAP PO SCH ×2 (08:25→20:19)
[2018-08-11] MEDS ORDERED: LASI40TA9 PO (11:39)
[2018-08-11] MEDS ORDERED: VERA120C PO (11:39)
--- NOTE | 2018-08-11 11:43 | DS.PDOC ---
Discharge Summary General Date of Admission Jul 30, 2018 at 14:17 Date of Discharge 08/11/18 Discharge Summary PROCEDURES PERFORMED DURING STAY: Thoracentesis ADMITTING DIAGNOSES: 1. Pneumonia 2. pSVT 3. UTI DISCHARGE DIAGNOSES: 1. Pneumonia 2. pSVT 3. UTI 4. Fluid overload COMPLICATIONS/CHIEF COMPLAINT: Pneumonia. HISTORY OF PRESENT ILLNESS: "This 82 years old white female with past medical history of hyperlipidemia, hypertension, status post left mastectomy secondary to breast cancer has not se en her PCP since last 1 year, but she had developed increasing shortness of breath, cough and feeling tired since last 5 days. Patient called her PCP. She was advised to come for evaluation but she decided come to emergency room instead. Patient's shortness of breath is not associated with chest pain, nausea, vomiting but is associated with cough. Has been since last 5 days, persistent. No other associated symptoms not improve with any position or medications, but progressively getting worse and spontaneously." HOSPITAL COURSE: Patient had a somewhat complicated course of treatment including chest congestion/appear to be fluid overloaded as well as hypoxia and SOB. Abx was continued for 10 days total due to symptoms. B/l pleural effusion noted on CT chest, thoracentesis attempted but diagnostic and therapeutic but unsuccessful due to movement and patient refusing to re-attempt. Has been diuresing with signficant improvement and effusion appeared to have resolved on most recent CXR, have not been on lasix prior to this admission. Will discharge with 40 PO lasix for now can be readjusted at PMD if not needed. ECHO showed normal systolic function but possibly evidence of pulm HTN? IVC was mildly elevated. Patient is very weak and has not been to perform much PT, will need aggressive PT at rehab. Was able to wean off of O2. If fluid retention recurs with increasing SOB, patient may be re-approached with thoracentesis. Also with episodes of pSVTs not resolving. Started on Verapamil with improvement, has not note any further episodes on medication. DISCHARGE MEDICATIONS: Please see below. ALLERGIES: Please see below. PHYSICAL EXAMINATION ON DISCHARGE: VITAL SIGNS: Please see below. General: Weak, no acute distress. Eyes: Normal sclera, EOMI, SHELDON HENT: Atraumatic, neck supple, moist mucous membranes Cardiovascular: Normal rate. Pulmonary: mild bibasilar crackles GI: Soft, nontender, nondistended Skin: Warm and dry Neuro: CN grossly intact. No focal deficits. Strengths equal b/l. Psych: oriented x 3 LABORATORY DATA: Please see below. IMAGING: ECHO- IMPRESSION: 1. Normal global left ventricular systolic function. There are features of left ventricular diastolic dysfunction manifested by abnormal relaxation. 2. Aortic valve sclerosis with trace aortic regurgitation and probably moderate aortic stenosis. 3. Mitral annulus calcification with trace mitral regurgitation, but no mitral stenosis. 4. The inferior vena cava was mildly enlarged, central venous pressure is probably elevated. Head CT- IMPRESSION: 1. Old right basal ganglia lacunar infarction. 2. Small vessel ischemic disease. 3. Moderate volume loss. Chest CT- Impression: Moderate bilateral pleural effusions with compression atelectasis of the adjacent lung. The left pleural effusion is larger. CXR (08/09)- Impression: 1. Chronic stable-appearing changes along with trace basilar atelectasis cannot be excluded. 2. No obvious pleural effusion. ACTIVITY: [As tolerated]. DIET: Regular diet DISCHARGE PLAN: c/w PO lasix for now. f/u with PMD within 1 week. Need aggressive PT DISPOSITION: rehab. DISCHARGE INSTRUCTIONS: c/w PO lasix for now. f/u with PMD within 1 week. Need aggressive PT ITEMS TO FOLLOWUP ON ON OUTPATIENT: 1. none DISCHARGE CONDITION: [Stable]. TIME SPENT ON DISCHARGE: 35 minutes. Vital Signs/I&Os Vital Signs Date Time Temp Pulse Resp B/P (MAP) Pulse Ox O2 Delivery O2 Flow Rate FiO2 08/11/18 06:04 99 137/70 08/11/18 06:00 98.0 20 95 08/10/18 20:53 Room Air 08/07/18 21:30 1.0 I&O- Last 24 Hours up to 6 AM 08/11/18 06:00 Intake Total 1710 ml Output Total 900 ml Balance 810 ml Laboratory Data Labs 24H Laboratory Tests 2 08/11/18 05:40: Nucleated Red Blood Cells % (auto) 0.0, Anion Gap 6L, Glomerular Filtration Rate > 60.0, Blood Urea Nitrogen 26H, Creatinine 0.84, Sodium Level 139, Potassium Level 2.8*L, Chloride Level 99, Carbon Dioxide Level 34H, Calcium Level 8.7L CBC/BMP Laboratory Tests 08/11/18 05:40 Red Blood Count 4.73, Mean Corpuscular Volume 81.2, Mean Corpuscular Hemoglobin 26.0 L, Mean Corpuscular Hemoglobin Concent 32.0, Red Cell Distribution Width 16.4 H, Calcium Level 8.7 L Microbiology Microbiology 08/06/18 Acid Fast Stain, Received Pending 08/06/18 Mycobacterial Culture, Received Pending 08/06/18 Fungal Smear, Received Pending 08/06/18 Fungal Culture, Received Pending 08/06/18 Gram Stain - Final, Complete 08/06/18 Anaerobic Culture - Final, Complete 08/06/18 Body Fluid Culture - Final, Complete 08/02/18 Gram Stain - Final, Complete 08/02/18 Sputum Culture - Final, Complete Discharge Medications Scheduled Atorvastatin Calcium (Atorvastatin Calcium) 10 Mg Tab, 10 MG PO QPM, (Reported) Enalapril Maleate (Enalapril Maleate) 10 Mg Tablet, 10 MG PO DAILY, (Reported) Furosemide (Lasix) 40 Mg Tablet, 40 MG PO DAILY Verapamil HCl (Verapamil ER) 120 Mg Cap24h.pel, 120 MG PO DAILY Scheduled PRN Acetaminophen (Acetaminophen) 500 Mg Tablet, 1,000 MG PO Q6H PRN for PAIN, (Rep orted) Aspirin (Aspirin) 325 Mg Tablet, 325 MG PO DAILY PRN for PAIN, (Reported) Allergies Coded Allergies: No Known Allergies (Unverified , 07/30/18) RADHA ISAAC MD Aug 11, 2018 11:43
[2018-08-11 14:00] VITALS: BP 158/64
[2018-08-11 22:00] VITALS: BP 138/64
[2018-08-12 06:00] VITALS: BP 127/70
[2018-08-12 06:21] LABS: HEMATOCRIT 39.2 % (36.0-47.0); HEMOGLOBIN 12.7 g/dl (12.0-15.5); MEAN CORPUSCULAR HEMOGLOBIN 26.5 pg (27.0-33.0); MEAN CORPUSCULAR HGB CONC 32.4 g/dl (32.0-36.5); MEAN CORPUSCULAR VOLUME 81.7 fl (80.0-96.0); PLATELET COUNT, AUTOMATED 355 10^3/uL (150-450); WHITE BLOOD COUNT 14.5 10^3/uL (4.0-10.0)
[2018-08-12] MEDS: VERAPAMIL 40 MG TAB PO SCH ×3 (06:23→21:12)
[2018-08-12 06:46] LABS: BLOOD UREA NITROGEN 24 MG/DL (7-18); CARBON DIOXIDE LEVEL 34 MEQ/L (21-32); CHLORIDE LEVEL 101 MEQ/L (98-107); CREATININE FOR GFR 0.82 MG/DL (0.55-1.30); GLOMERULAR FILTRATION RATE > 60.0 (>32); GLUCOSE, FASTING 119 MG/DL (70-100); POTASSIUM SERUM 3.5 MEQ/L (3.5-5.1); SODIUM LEVEL 140 MEQ/L (136-145)
[2018-08-12] MEDS: IPRATROPIUM 0.5MG/ALBUTEROL 2.5MG INH SOL UD 3ML (DUONEB)(J7620) NEB SCH ×6 (07:16→23:24)
[2018-08-12] MEDS: HEPARIN SOD (PORCINE) 5000 UNITS/ML VIAL SC SCH ×2 (09:33→21:12)
[2018-08-12] MEDS: DOCUSATE SODIUM 100 MG CAP PO SCH ×2 (09:33→21:12)
[2018-08-12] MEDS: FUROSEMIDE 40 MG/4 ML VIAL (J1940) IV SCH (09:34)
[2018-08-12] MEDS: ACETAMINOPHEN TAB 650MG DOSE (2X325MG) PO PRN (11:04)
[2018-08-12 14:00] VITALS: BP 158/64
--- NOTE | 2018-08-12 21:49 | IPNPDOC ---
Subjective Date Seen The patient was seen on 08/12/18. Subjective Chief Complaint/HPI 8-year-old female with history of breast cancer who was admitted with shortness of breath. She was found to have pneumonia and a UTI and was treated with IV antibiotics. She was also thought to have CHF and was diuresed. Thoracocentesis was attempted, however, they were unable to obtain enough fluid for diagnosis. Patient then declined any further taps. She was intended to be discharged yesterday but was noticed to have hypokalemia. Potassium was repleted today. She is without complaint and eager to go home. However, her white count is increased dramatically on her CBC. She denies any diarrhea, any new symptoms or any worsening of her cough General: Reports: Normal Appetite; Denies: Chills, Night Sweats, Fatigue, Malaise Eyes: Denies: Pain, Vision change ENT: Denies: Head Aches, Ear Pain, Dysphagia Skin: Denies: Rash, Lesions, Breakdown Pulmonary: Reports: Dyspnea, Cough Cardiovascular: Denies: Chest Pain, Palpitations, Orthopnea, Paroxysmal Noc. Dyspnea, Lt Headedness Gastrointestinal: Denies: Nausea, Vomiting, Abdominal Pain, Diarrhea, Constipation Genitourinary: Denies: Dysuria, Frequency, Incontinence, Retention Hematologic: Denies: Bruising, Bleeding Excessively Musculoskeletal: Denies: Neck Pain, Back Pain, Joint Pain, Muscle Pain, Spasms Neurological: Denies: Weakness, Numbness, Change in speech, Confusion Psych: Reports: Mood Normal; Denies: Depression, Memory Issues Objective Physical Examination General Exam: Positive: Alert, Cooperative Eye Exam: Positive: PERRLA, Conjunctiva & lids normal ENT Exam: Positive: Atraumatic Neck Exam: Positive: Supple Chest Exam: Positive: Diminished, Other (. Crackles on left base) Heart Exam: Positive: Rate Normal, Normal S1, Normal S2 Telemetry: Positive: PVCs Abdomen Exam: Positive: Normal bowel sounds Extremity Exam: Positive: Normal pulses Skin Exam: Positive: Nl turgor and temperature Neuro Exam: Positive: Normal Gait Psych Exam: Positive: Mental status NL Assessment /Plan Assessment 82-year-old female admitted with pneumonia. Pneumonia/UTI. Completed antibiotic. Patient feels symptoms have improved but not resolved. Given new leukocytosis will keep one more day to monitor. Monitor for fever, diarrhea, or worsening with stress symptoms. Hypokalemia. Improved. We'll DC with potassium supplement. Possible CHF. Echo on this admission with no evidence of dysfunction Problems (1) Pneumonia Status: Acute (2) UTI (urinary tract infection) (3) Paroxysmal SVT (supraventricular tachycardia) Status: Acute Plan/VTE VTE Prophylaxis Ordered?: Yes VS, I&O, 24H, Fishbone Vital Signs/I&O Vital Signs Date Time Temp Pulse Resp B/P (MAP) Pulse Ox O2 Delivery O2 Flow Rate FiO2 08/12/18 21:12 99 142/68 08/12/18 14:00 97.3 18 95 08/10/18 20:53 Room Air 08/07/18 21:30 1.0 I&O- Last 24 Hours up to 6 AM 08/12/18 06:00 Intake Total 1440 ml Output Total 1600 ml Balance -160 ml Laboratory Data 24H LABS Laboratory Tests 2 08/12/18 05:43: Nucleated Red Blood Cells % (auto) 0.0, Anion Gap 5L, Glomerular Filtration Rate > 60.0, Blood Urea Nitrogen 24H, Creatinine 0.82, Sodium Level 140, Potassium Level 3.5#, Chloride Level 101, Carbon Dioxide Level 34H, Calcium Level 9.0 CBC/BMP Laboratory Tests 08/12/18 05:43 Red Blood Count 4.80, Mean Corpuscular Volume 81.7, Mean Corpuscular Hemoglobin 26.5 L, Mean Corpuscular Hemoglobin Concent 32.4, Red Cell Distribution Width 16.7 H, Calcium Level 9.0 Microbiology Microbiology 08/06/18 Acid Fast Stain, Received Pending 08/06/18 Mycobacterial Culture, Received Pending 08/06/18 Fungal Smear, Received Pending 08/06/18 Fungal Culture, Received Pending 08/06/18 Gram Stain - Final, Complete 08/06/18 Anaerobic Culture - Final, Complete 08/06/18 Body Fluid Culture - Final, Complete 08/02/18 Gram Stain - Final, Complete 08/02/18 Sputum Culture - Final, Complete RADHA JOSE MD Aug 12, 2018 21:49
[2018-08-12 22:00] VITALS: BP 142/68
[2018-08-12 23:08] VITALS: O2SAT 94
[2018-08-13] MEDS: IPRATROPIUM 0.5MG/ALBUTEROL 2.5MG INH SOL UD 3ML (DUONEB)(J7620) NEB SCH ×3 (03:11→11:33)
[2018-08-13 05:46] VITALS: BP 123/62
[2018-08-13] MEDS: VERAPAMIL 40 MG TAB PO SCH (05:46)
[2018-08-13 06:00] VITALS: BP 123/62
[2018-08-13 06:31] LABS: HEMATOCRIT 40.2 % (36.0-47.0); HEMOGLOBIN 12.6 g/dl (12.0-15.5); MEAN CORPUSCULAR HEMOGLOBIN 26.6 pg (27.0-33.0); MEAN CORPUSCULAR HGB CONC 31.3 g/dl (32.0-36.5); PLATELET COUNT, AUTOMATED 324 10^3/uL (150-450); RED BLOOD COUNT 4.73 10^6/uL (4.00-5.40); WHITE BLOOD COUNT 8.5 10^3/uL (4.0-10.0)
[2018-08-13 06:49] LABS: BLOOD UREA NITROGEN 25 MG/DL (7-18); CALCIUM LEVEL 9.3 MG/DL (8.8-10.2); CARBON DIOXIDE LEVEL 33 MEQ/L (21-32); CHLORIDE LEVEL 100 MEQ/L (98-107); CREATININE FOR GFR 0.85 MG/DL (0.55-1.30); GLOMERULAR FILTRATION RATE > 60.0 (>32); GLUCOSE, FASTING 104 MG/DL (70-100); POTASSIUM SERUM 3.3 MEQ/L (3.5-5.1); SODIUM LEVEL 139 MEQ/L (136-145)
[2018-08-13] MEDS ORDERED: POTASSIUM CHLORIDE 10 MEQ SR TABLET PO SCH (09:00)
[2018-08-13] MEDS: DOCUSATE SODIUM 100 MG CAP PO SCH (09:33)
[2018-08-13] MEDS: HEPARIN SOD (PORCINE) 5000 UNITS/ML VIAL SC SCH (09:34)
[2018-08-13] MEDS: FUROSEMIDE 40 MG/4 ML VIAL (J1940) IV SCH (09:34)
[2018-08-13] MEDS ORDERED: KLOR10TA76 PO (10:16)
--- NOTE | 2018-08-13 10:35 | DS.PDOC ---
Discharge Summary General Date of Admission Jul 30, 2018 at 14:17 Date of Discharge 08/13/18 Discharge Summary PROCEDURES PERFORMED DURING STAY: Thoracocentesis. HOSPITAL COURSE: 82-year-old female with history of breast cancer who was admitted with shortness of breath. She was found to have pneumonia, pleural effusions, PSVT and a UTI. She was started on verapamil for SVT. She was treated with IV antibiotics. She was also thought to have CHF and was diuresed. Thoracocentesis was attempted, however, they were unable to obtain enough fluid for diagnosis. Patient then declined any further taps. Echo did not reveal any LV dysfunction but was suggestive of pulm htn. She improved with antibiotics and diuresis, but developed hypokalemia, which improved with oral supplementation. She then developed leukocytosis which delayed her discharge another day, but resolved without intervention. Pt is now stable for dc to rehab DISCHARGE MEDICATIONS: Please see below. ALLERGIES: Please see below. PHYSICAL EXAMINATION ON DISCHARGE: VITAL SIGNS: Please see below. GENERAL: comfortable, sitting up, no apparent distress HEENT: normocephalic atraumatic, eomi, perrl NECK: no jvd or bruits CARDIOVASCULAR EXAMINATION: s1 s2 no murmurs, RRR RESPIRATORY EXAMINATION: unlabored respirations, lungs CTA with diminished movement ABDOMINAL EXAMINATION: soft non distended nontender EXTREMITIES: +edema SKIN: Intact, no rashes NEUROLOGICAL EXAMINATION: no focal deficits PSYCHIATRIC EXAMINATION: A+Ox3 nl mood and affect PROGNOSIS: good ACTIVITY: [As tolerated]. DIET: low sodium, low fat DISCHARGE PLAN: rehab DISPOSITION: . DISCHARGE INSTRUCTIONS: 1. daily weights, check BMP in one week. DISCHARGE CONDITION: [Stable]. TIME SPENT ON DISCHARGE: 15 minutes Vital Signs/I&Os Vital Signs Date Time Temp Pulse Resp B/P (MAP) Pulse Ox O2 Delivery O2 Flow Rate FiO2 08/13/18 06:00 98.2 84 18 123/62 (82) 93 08/12/18 23:08 Room Air 08/07/18 21:30 1.0 I&O- Last 24 Hours up to 6 AM 08/13/18 06:00 Intake Total 698 ml Output Total 625 ml Balance 73 ml Laboratory Data Labs 24H Laboratory Tests 2 08/13/18 05:56: Nucleated Red Blood Cells % (auto) 0.0, Anion Gap 6L, Glomerular Filtration Rate > 60.0, Blood Urea Nitrogen 25H, Creatinine 0.85, Sodium Level 139, Potassium Level 3.3L, Chloride Level 100, Carbon Dioxide Level 33H, Calcium Level 9.3 CBC/BMP Laboratory Tests 08/13/18 05:56 Red Blood Count 4.73, Mean Corpuscular Volume 85.0, Mean Corpuscular Hemoglobin 26.6 L, Mean Corpuscular Hemoglobin Concent 31.3 L, Red Cell Distribution Width 17.0 H, Calcium Level 9.3 Microbiology Microbiology 08/06/18 Acid Fast Stain, Received Pending 08/06/18 Mycobacterial Culture, Received Pending 08/06/18 Fungal Smear, Received Pending 08/06/18 Fungal Culture, Received Pending 08/06/18 Gram Stain - Final, Complete 08/06/18 Anaerobic Culture - Final, Complete 08/06/18 Body Fluid Culture - Final, Complete Discharge Medications Scheduled Atorvastatin Calcium (Atorvastatin Calcium) 10 Mg Tab, 10 MG PO QPM, (Reported) Enalapril Maleate (Enalapril Maleate) 10 Mg Tablet, 10 MG PO DAILY, (Reported) Furosemide (Lasix) 40 Mg Tablet, 40 MG PO DAILY Potassium Chloride (Klor-Con M10) 10 Meq Tab.er.prt, 20 MEQ PO DAILY Verapamil HCl (Verapamil ER) 120 Mg Cap24h.pel, 120 MG PO DAILY Scheduled PRN Acetaminophen (Acetaminophen) 500 Mg Tablet, 1,000 MG PO Q6H PRN for PAIN, (Reported) Aspirin (Aspirin) 325 Mg Tablet, 325 MG PO DAILY PRN for PAIN, (Reported) Allergies Coded Allergies: No Known Allergies (Unverified , 07/30/18) RADHA JOSE MD Aug 13, 2018 10:35
== END 2018-08-13 12:32 | DRG 194 ==
LOC: M ED 10:54 → M ED INP 14:17 → M MSPAV 17:50
PROVIDERS: ADMIT Internal Medicine; ATTEND Hospitalist
DX: J18.9 Pneumonia, unspecified organism (principal); I47.1 Supraventricular tachycardia; J90 Pleural effusion, not elsewhere classified; N39.0 Urinary tract infection, site not specified; Z85.3 Personal history of malignant neoplasm of breast; E87.6 Hypokalemia; D72.829 Elevated white blood cell count, unspecified; Z79.899 Other long term (current) drug therapy; E78.5 Hyperlipidemia, unspecified; I10 Essential (primary) hypertension; Z79.82 Long term (current) use of aspirin; B96.1 Klebsiella pneumoniae [K. pneumoniae] as the cause of diseases classified elsewhere

== ENCOUNTER → 2018-09-22 | Outpatient (REF) | payer MEDICARE ==
[~2018-09-22] MED LIST changes: +ACET500T15 PO; +BAYE325T16 PO; +ENAL10TA2 PO; +HYDR25TAB PO; +KLOR10TA76 PO; +LASI40TA9 PO; +VERA120C PO
[2018-09-22 15:48] LABS: BASO # 0.1 10^3/uL (0.0-0.2); BASO % 0.5 % (0.0-1.0); EOS # 0.2 10^3/uL (0.0-0.50); HEMOGLOBIN 13.1 g/dl (12.0-15.5); MEAN CORPUSCULAR HEMOGLOBIN 28.1 pg (27.0-33.0); MEAN CORPUSCULAR HGB CONC 33.6 g/dl (32.0-36.5); MEAN CORPUSCULAR VOLUME 83.5 fl (80.0-96.0); MONO # 0.7 10^3/uL (0.0-0.8); MONO % 5.6 % (0.0-5.0); NEUTROPHILS # 6.8 10^3/uL (1.8-7.7); NEUTROPHILS % 57.6 % (36.0-66.0); PLATELET COUNT, AUTOMATED 325 10^3/uL (150-450); RED BLOOD COUNT 4.67 10^6/uL (4.00-5.40); WHITE BLOOD COUNT 11.7 10^3/uL (4.0-10.0)
[2018-09-22 16:17] LABS: BLOOD UREA NITROGEN 14 MG/DL (7-18); CALCIUM LEVEL 9.4 MG/DL (8.8-10.2); CARBON DIOXIDE LEVEL 28 MEQ/L (21-32); CHLORIDE LEVEL 101 MEQ/L (98-107); CREATININE FOR GFR 0.79 MG/DL (0.55-1.30); GLOMERULAR FILTRATION RATE > 60.0 (>32); GLUCOSE, FASTING 97 MG/DL (70-100); POTASSIUM SERUM 4.5 MEQ/L (3.5-5.1); SODIUM LEVEL 137 MEQ/L (136-145)
== END ==
LOC: M SHH 15:33
PROVIDERS: ATTEND Family Medicine
DX: I50.9 Heart failure, unspecified (principal)

== ENCOUNTER 2018-10-08 20:09 | Inpatient (IN) | payer MEDICARE ==
[~2018-10-08] VITALS: Ht 166.4 cm; Wt 105.9 kg
[~2018-10-08 20:09] MED LIST changes: -POTA10TA16 PO; -PROHANCE 279.3MG/ML 15ML VIAL (A9576) As Ordered ONE; -PROHANCE 279.3MG/ML 5ML VIAL (A9576) As Ordered ONE
[2018-10-08] MEDS ORDERED: ASPIRIN 325 MG TAB PO ONE (20:30)
[2018-10-08 20:49] LABS: BASO # 0.1 10^3/uL (0.0-0.2); BASO % 0.5 % (0.0-1.0); EOS # 0.2 10^3/uL (0.0-0.50); EOS % 1.5 % (0.0-3.0); HEMATOCRIT 39.1 % (36.0-47.0); HEMOGLOBIN 13.1 g/dl (12.0-15.5); LYMPH # 2.6 10^3/uL (1.5-4.5); LYMPH % 19.8 % (24.0-44.0); MEAN CORPUSCULAR HGB CONC 33.5 g/dl (32.0-36.5); MEAN CORPUSCULAR VOLUME 86.5 fl (80.0-96.0); MONO # 0.7 10^3/uL (0.0-0.8); MONO % 5.6 % (0.0-5.0); NEUTROPHILS # 9.4 10^3/uL (1.8-7.7); NEUTROPHILS % 72.2 % (36.0-66.0); PLATELET COUNT, AUTOMATED 323 10^3/uL (150-450); RED BLOOD COUNT 4.52 10^6/uL (4.00-5.40)
[2018-10-08] MEDS ORDERED: POTA10TA16 PO (20:54)
[2018-10-08] MEDS ORDERED: LASI40TA9 PO (20:54)
[2018-10-08] MEDS ORDERED: VERA120C PO (20:54)
[2018-10-08 21:00] LABS: INR 1.11; PARTIAL THROMBOPLASTIN TIME 27.8 SECONDS (25.0-38.4)
[2018-10-08] MEDS: ATORVASTATIN 20 MG TAB PO SCH (21:00)
[2018-10-08] MEDS: HEPARIN SOD (PORCINE) 5000 UNITS/ML VIAL SC SCH (21:00)
[2018-10-08 21:18] LABS: BLOOD UREA NITROGEN 24 MG/DL (7-18); CALCIUM LEVEL 8.9 MG/DL (8.8-10.2); CARBON DIOXIDE LEVEL 28 MEQ/L (21-32); CHLORIDE LEVEL 102 MEQ/L (98-107); CREATININE FOR GFR 0.88 MG/DL (0.55-1.30); GLOMERULAR FILTRATION RATE > 60.0 (>32); GLUCOSE, FASTING 193 MG/DL (70-100); POTASSIUM SERUM 3.7 MEQ/L (3.5-5.1); SODIUM LEVEL 139 MEQ/L (136-145)
[2018-10-08] MEDS ORDERED: ACETAMINOPHEN TAB 650MG DOSE (2X325MG) PO PRN (22:00)
[2018-10-09] VITALS (7 sets, daily range): BP systolic 92–120; BP diastolic 51–56
--- NOTE | 2018-10-09 00:36 | HPEPDOC ---
[facility] Medical History & Physical Date of Admission Oct 08, 2018 Date of Service: Oct 08, 2018 History and Physical CHIEF COMPLAINT: [right sided weakness - sent in by Dr. Durbin for acute cva on MRI] HISTORY OF PRESENT ILLNESS: [This is an 83 yo female with pmhx of htn, who was sent in by Dr. Eldridge for positive findings of cva on MRI. Patient said she has been having right sided weakness for the past 1.5 week, but she did not seek medical attention until this past Thursday. She said her right hand strength is improved. She denied fever, chills, chest pain, sob, headache, palpitation or blurry vision ] PAST MEDICAL HISTORY: 1. [htn]. 2. HX OF RIGT AND LEFT breast ca s/p left lumpectomy, right mastectomy, chemo and radiation PAST SURGICAL HISTORY: 1. [left lumpectomy ]. 2. [right mastectomy ]. SOCIAL HISTORY: lives with , denied drug and etoh use, quit smoking in 1960s FAMILY HISTORY: brother of cva mother had lung cancer father had parkinson's disease ALLERGIES: Please see below. HOME MEDICATIONS: Please see below. LABORATORY DATA: See below. IMAGING: [ MRI OF BRAIN IMPRESSION: 1. 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 2. There are 2 foci of restricted diffusion in the left frontal white matter and a single right occipital white matter focus of restricted diffusion. This is consistent with small acute infarcts. 3. Metastatic disease may also demonstrate restricted diffusion. However, there is no evidence of enhancement which makes untreated metastatic disease much less likely. ] MICROBIOLOGY: Please see below. ASSESSMENTand Plan acute cva hx of htn - given areas of multiple areas of infarction , there is concern for possible afib with emboli to the brain - f/u echo - c/w aspirin 325mg daily - may need more anticoagulation - rehab/pt ordered - carotid arteries are patent - c/w bp meds, symptoms started from last week, no need for permission htn at this time dvt ppx dnr/dni Vital Signs Vital Signs Date Time Temp Pulse Resp B/P (MAP) Pulse Ox O2 Delivery O2 Flow Rate FiO2 10/08/18 20:54 102 96 10/08/18 20:45 134/85 (101) 10/08/18 20:22 16 Room Air Laboratory Data Labs 24H Laboratory Tests 2 10/08/18 20:44: Immature Granulocyte % (Auto) 0.4, White Blood Count 13.0H, Red Blood Count 4.52, Hemoglobin 13.1, Hematocrit 39.1, Mean Corpuscular Volume 86.5, Mean Corpuscular Hemoglobin 29.0, Mean Corpuscular Hemoglobin Concent 33.5, Red Cell Distribution Width 14.9H, Platelet Count 323, Neutrophils (%) (Auto) 72.2H, Lymphocytes (%) (Auto) 19.8L, Monocytes (%) (Auto) 5.6H, Eosinophils (%) (Auto) 1.5, Basophils (%) (Auto) 0.5, Neutrophils # (Auto) 9.4H, Lymphocytes # (Auto) 2.6, Monocytes # (Auto) 0.7, Eosinophils # (Auto) 0.2, Basophils # (Auto) 0.1, Nucleated Red Blood Cells % (auto) 0.0, Prothrombin Time 14.0, Prothromb Time International Ratio 1.11, Activated Partial Thromboplast Time 27.8, Anion Gap 9, Glomerular Filtration Rate > 60.0, Blood Urea Nitrogen 24H, Creatinine 0.88, Sodium Level 139, Potassium Level 3.7, Chloride Level 102, Carbon Dioxide Level 28, Calcium Level 8.9 CBC/BMP Laboratory Tests 10/08/18 20:44 Red Blood Count 4.52, Mean Corpuscular Volume 86.5, Mean Corpuscular Hemoglobin 29.0, Mean Corpuscular Hemoglobin Concent 33.5, Red Cell Distribution Width 14.9 H, Neutrophils (%) (Auto) 72.2 H, Lymphocytes (%) (Auto) 19.8 L, Monocytes (%) (Auto) 5.6 H, Eosinophils (%) (Auto) 1.5, Basophils (%) (Auto) 0.5, Neutrophils # (Auto) 9.4 H, Lymphocytes # (Auto) 2.6, Monocytes # (Auto) 0.7, Eosinophils # (Auto) 0.2, Basophils # (Auto) 0.1, Calcium Level 8.9 Home Medications Scheduled Aspirin (Aspirin) 325 Mg Tablet, 325 MG PO DAILY Atorvastatin Calcium (Atorvastatin Calcium) 10 Mg Tab, 10 MG PO QPM Enalapril Maleate (Enalapril Maleate) 10 Mg Tablet, 10 MG PO DAILY Furosemide (Lasix) 40 Mg Tablet, 40 MG PO DAILY Potassium Chloride (Potassium Chloride) 10 Meq Tab.er.prt, 10 MEQ PO DAILY Verapamil HCl (Verapamil ER) 120 Mg Cap24h.pel, 120 MG PO DAILY Scheduled PRN Acetaminophen (Acetaminophen) 500 Mg Tablet, 1,000 MG PO Q6H PRN for PAIN Allergies Coded Allergies: No Known Allergies (Unverified , 07/30/18) A-FIB/CHADSVASC A-FIB History Current/History of A-Fib/PAF?: No Current PO Anticoag Therapy: No Age/Risk Factor Scoring CHADSVASC: CHADSVASC Response (Comments) Value Age Risk Factor Age >/= 75 years old 2 Gender Risk Factor Female 1 Hx of CHF No 0 Hx of HTN Yes 1 Hx of Stroke/TIA/or VTE Yes 2 Hx of Diabetes No 0 Hx of Vascular Disease No 0 Total 6 Treatment Treatment ordered: NONE Reason Anticoagulant not given: Not indicated/[id number] KENIA LPOEZ MD Oct 09, 2018 00:36
[2018-10-09 04:45] LABS: HEMATOCRIT 34.5 % (36.0-47.0); HEMOGLOBIN 11.6 g/dl (12.0-15.5); MEAN CORPUSCULAR HEMOGLOBIN 28.1 pg (27.0-33.0); MEAN CORPUSCULAR HGB CONC 33.6 g/dl (32.0-36.5); MEAN CORPUSCULAR VOLUME 83.5 fl (80.0-96.0); PLATELET COUNT, AUTOMATED 309 10^3/uL (150-450); RED BLOOD COUNT 4.13 10^6/uL (4.00-5.40); WHITE BLOOD COUNT 12.1 10^3/uL (4.0-10.0)
[2018-10-09 05:07] LABS: BLOOD UREA NITROGEN 22 MG/DL (7-18); CALCIUM LEVEL 8.9 MG/DL (8.8-10.2); CARBON DIOXIDE LEVEL 28 MEQ/L (21-32); CHLORIDE LEVEL 106 MEQ/L (98-107); CREATININE FOR GFR 0.65 MG/DL (0.55-1.30); GLOMERULAR FILTRATION RATE > 60.0 (>32); GLUCOSE, FASTING 87 MG/DL (70-100); MAGNESIUM LEVEL 1.8 MG/DL (1.8-2.4); POTASSIUM SERUM 3.6 MEQ/L (3.5-5.1); SODIUM LEVEL 140 MEQ/L (136-145)
[2018-10-09] MEDS: HEPARIN SOD (PORCINE) 5000 UNITS/ML VIAL SC SCH ×2 (08:31→21:17)
[2018-10-09] MEDS: VERAPAMIL 120 MG SR TAB PO SCH (08:31)
[2018-10-09] MEDS: ASPIRIN 325 MG TAB PO SCH (08:32)
[2018-10-09] MEDS: ENALAPRIL MALEATE 10 MG TAB PO SCH (08:32)
[2018-10-09] MEDS ORDERED: SLF 3 ML SYR IV PRN (08:45)
--- NOTE | 2018-10-09 09:52 | REP ---
Bilateral carotid artery duplex ultrasound: Peak flow velocity analysis: RIGHT LEFT ICA Peak flow velocity cm/sec 48.0 49.9 ICA Diastolic flow velocity cm/sec 12.9 16.1 ICA/CCA Ratio 0.62 0.76 ECA Peak flow velocity cm/sec 38 37 CCA Peak flow velocity cm/sec 78 65.8 There is no visible atheromatous plaque on the right on the left. The peak flow velocities are normal bilaterally. There is no stenosis on the right on the left. There is antegrade flow in the vertebral arteries bilaterally. Impression: There is no stenosis on the right on the left. Electronically Signed by Ramu Navarro MD 10/09/2018 09:44 A
--- NOTE | 2018-10-09 11:16 | IPN ---
DATE OF SERVICE: 10/09/2018 Chula is seen in progressive care unit. She was admitted yesterday after she had an outpatient imaging study that showed small acute infarcts in the distributed territory left frontal, right occipital region. I discussed the case with the radiologists. They did not think metastatic disease is likely based upon the lack of enhancement. We called the patient's family and they agreed to bring her to the hospital to be admitted. She has no documented history of atrial fibrillation but stroke is most consistent with an embolic event which statistically is most likely from occult atrial fibrillation. PAST MEDICAL HISTORY: Hypertension. Bilateral breast cancer status post lumpectomy on the left, mastectomy on the right, chemotherapy and radiation therapy. She feels well. She understands. She has got some left sided weakness that has been bothering her. She cannot tell me for how long, she thinks maybe a few days. Denies any headache of diplopia. PHYSICAL EXAMINATION: 112/56, pulse 79, respiratory rate 22, 93% oxygen saturation, afebrile. General appearance: She is alert and conversant, no distress. She has a little bit of right facial weakness. No carotid bruits. Lungs: Clear. Heart: Regular rhythm with 1/6 systolic ejection murmur. Abdomen soft, nontender, no masses. Trace peripheral edema. Right upper and lower extremity have grade 4/5 strength. Left side is normal. Finger to nose testing is decreased on the right compared to the left. Did not test her gait. LABS: White count 12.1, hemoglobin 11, platelets 309. Sodium 140, potassium 3.6, BUN 22, creatinine 0.6, glucose 87. IMPRESSION: 1. Stroke probably embolic. She is on telemetry. There has been no sign of atrial fibrillation so far. She is currently on aspirin but if she proves to have atrial fibrillation, she will be changed to an anticoagulant. Echocardiogram is pending. Carotid ultrasound is pending. 2. Hypertension. Blood pressure is well controlled on current regimen. 3. Hyperlipidemia. Continue on atorvastatin 40 mg daily. 4. History of breast cancer. Per discussion with radiology, this lesion is not felt to be metastatic.
[2018-10-09] MEDS: SLF 3 ML SYR IV SCH ×2 (11:43→21:17)
--- NOTE | 2018-10-09 14:33 | ECHO ---
DATE OF PROCEDURE: 10/09/2018 REFERRING PHYSICIAN: Kadie Mcclure MD INDICATION: Cerebrovascular accident. HEIGHT: 167 cm. WEIGHT: 104 kg. DIMENSIONS: IVS: 1.2 LV: 4.1 LVPW: 1.2 LA: 3.6 Aorta: 2.6 Mitral E wave velocity 107, A wave 169 IVC: 1.7 Left atrium volume index: 32 mL/sq m FINDINGS: The study was of fair technical quality with difficult visualization. The patient is in sinus rhythm. Left ventricle is of normal size. Mild left ventricular hypertrophy is noted. Estimated left ventricular ejection fraction (LVEF) is normal, around 65-70%. Right ventricle was poorly visualized but grossly appears normal. Left atrium is moderately enlarged. Right atrium was poorly seen. Aortic valve is heavily calcified. It was poorly visualized so I cannot comment on its structure or mobility of aortic cusps. Mitral valve also exhibits prominent abnormalities with thickening of mitral leaflets, somewhat limited mobility, and mitral annular calcifications, by 2D imaging, I assume at least mild mitral stenosis. Tricuspid valve was poorly seen but grossly appears normal. Pulmonic valve was not visualized. No pericardial effusion is noted. Inferior vena cava is normal size. Aortic root is normal. Aortic arch and abdominal aorta were also normal based on limited views. Doppler interrogation of aortic valve reveals no insufficiency and probably severe stenosis. Peak gradient across the valve is 67, mean gradient 37 mmHg. Calculated aortic valve area was 0.8 sq cm. It is quite possible that the severity is even underestimated because the Doppler was not of good quality. There is probably mild to moderate mitral stenosis. Peak gradient across the valve is 14 and mean is 6 mmHg. There is no tricuspid insufficiency and, consequently, I am unable to estimate pulmonary artery pressure. Mitral inflow pattern is indicative of grade 1 diastolic dysfunction but this is in setting of mitral stenosis. CONCLUSIONS: 1. Study is of fair technical quality. 2. Normal left ventricular (LV) size with mild left ventricle hypertrophy (LVH), preserved LV systolic function and grade 1 diastolic dysfunction. 3. Probably severe aortic stenosis (mean gradient of 37, calculated aortic valve area 0.8 sq cm). Valve itself was poorly seen. 4. At least mild mitral stenosis. 5. Normal central venous pressure. 6. Unable to estimate pulmonary artery pressure. COMMENT: Subacute bacterial endocarditis (SBE) prophylaxis is not recommended. If the patient has symptoms or clinical examination is consistent with severe aortic stenosis, then further evaluation is warranted. MTDD
[2018-10-09] MEDS: ATORVASTATIN 20 MG TAB PO SCH (21:17)
[2018-10-10 04:00] VITALS: BP 104/53
[2018-10-10 04:45] LABS: HEMATOCRIT 34.4 % (36.0-47.0); HEMOGLOBIN 11.4 g/dl (12.0-15.5); MEAN CORPUSCULAR HEMOGLOBIN 27.9 pg (27.0-33.0); MEAN CORPUSCULAR HGB CONC 33.1 g/dl (32.0-36.5); MEAN CORPUSCULAR VOLUME 84.3 fl (80.0-96.0); PLATELET COUNT, AUTOMATED 295 10^3/uL (150-450); RED BLOOD COUNT 4.08 10^6/uL (4.00-5.40); WHITE BLOOD COUNT 9.8 10^3/uL (4.0-10.0)
[2018-10-10 04:56] LABS: BLOOD UREA NITROGEN 16 MG/DL (7-18); CALCIUM LEVEL 8.2 MG/DL (8.8-10.2); CARBON DIOXIDE LEVEL 28 MEQ/L (21-32); CHLORIDE LEVEL 106 MEQ/L (98-107); CREATININE FOR GFR 0.66 MG/DL (0.55-1.30); GLOMERULAR FILTRATION RATE > 60.0 (>32); GLUCOSE, FASTING 95 MG/DL (70-100); POTASSIUM SERUM 3.7 MEQ/L (3.5-5.1); SODIUM LEVEL 141 MEQ/L (136-145)
[2018-10-10] MEDS: SLF 3 ML SYR IV SCH ×3 (06:02→21:21)
--- NOTE | 2018-10-10 07:08 | ECGEPIP ---
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
[2018-10-10 08:00] VITALS: BP 112/54
[2018-10-10] MEDS: ASPIRIN 325 MG TAB PO SCH (08:50)
[2018-10-10] MEDS: VERAPAMIL 120 MG SR TAB PO SCH (08:50)
[2018-10-10] MEDS: HEPARIN SOD (PORCINE) 5000 UNITS/ML VIAL SC SCH ×2 (08:50→21:21)
[2018-10-10] MEDS: ENALAPRIL MALEATE 10 MG TAB PO SCH (08:51)
[2018-10-10] MEDS: SENOKOT S TAB PO SCH ×2 (10:32→21:21)
[2018-10-10] MEDS: MIRALAX *UNIT DOSE* 17GM PACKET PO SCH ×2 (10:32→21:21)
--- NOTE | 2018-10-10 10:52 | IPN ---
DATE: 10/10/2018 Amanda is seen in progressive care unit (PCU). She has right-sided weakness. Her workup to date has shown no arrhythmias on telemetry, strict sinus rhythm, no atrial fibrillation. Her echocardiogram showed probable severe aortic stenosis. Aortic valve area is 0.8 square centimeters, as well as mild to moderate mitral stenosis. She does not have significant left atrial enlargement, however. Her carotid ultrasound showed no significant stenoses of the carotids bilaterally. Her MRA showed no intracranial stenosis. MRIs summarized previously. She has been constipated, otherwise she feels well. No recurrent weakness. No vertigo or diplopia. PHYSICAL EXAM: Vital signs stable. Blood pressure 112/54. Lungs: Clear. Heart: Regular rhythm with a 2/6 systolic ejection murmur. I did hear a diastolic rumble on closer exam today, did not catch that yesterday. Abdomen: Soft, nontender. No masses. Trace peripheral edema. She has 4/5 strength right upper and lower extremity, decreased coordination [id number] testing on the right compared to the left. Did not test her gait; she tells me she does not get out of a chair to walk at baseline. LABS: White count 9.8, hemoglobin 11.4, platelets 295. Sodium 141, potassium 3.7, BUN 16, creatinine 0.6, glucose 95. IMPRESSION: 1. Stroke, multifocal, suggesting embolic source. Could have been from aorta. No sign of break-through atrial fibrillation, though she will need long-term monitoring, such as an implanted loop recorder if she does not prove to have atrial fibrillation during this hospitalization. I have consulted neurology, discussed the case with Dr. Rayo. He agrees with aspirin therapy for now until we prove atrial arrhythmia. 2. Severe aortic stenosis/moderate mitral stenosis, cardiology was consulted. Performance status is poor. She is elderly, she does not walk much. I am not sure whether she is really a candidate for treatment of this. 3. Hypertension. Blood pressure is in good control on current regimen. 4. Hyperlipidemia. Continue current atorvastatin dose. 5. History of breast cancer. I discussed the MRI with radiology. They do not (dictation cut off). 6. Constipation. Bowel care has been ordered. (dictation cut off) radiology.
[2018-10-10 12:00] VITALS: BP 127/54
--- NOTE | 2018-10-10 14:15 | CR ---
DATE OF CONSULTATION: 10/10/2018 REFERRING PHYSICIAN: Dr. Sammy Eldridge INDICATION: Aortic and mitral valve disease and CVA. BRIEF HISTORY: Mrs. Tadeo is previously unknown to me. She is a pleasant 83-year-old female who so far has not had any history of cardiac problems. She presented to [facility] on 10/08/2018 after outpatient MRI detected several foci consistent with ischemic strokes. She presented to Dr. Eldridge with complaints of right-sided hemiparesis that actually occurred at least several days prior to the visit. She was subsequently admitted to hospital. Telemetry monitoring revealed ongoing sinus rhythm without any ectopy, but an echocardiogram was ordered that I interpreted yesterday. It revealed preserved left ventricular systolic function, but severe aortic stenosis and [id number]-yn-[id number] mitral stenosis. Consequently, I was asked to see the patient regarding further management. The patient denies any history of prior cardiac problems. At her baseline, she is very sedentary and basically pivots from bed to chair. She has not ambulated for many years. She believes that she has been essentially wheelchair ridden since 2011. Even prior to that, she was minimally active for at least several more years. She denies any chest pain. She denies any shortness of breath, and she denies any sensation of palpitations and near/syncope. She is somewhat discouraged by her lack of improvement. Her right upper extremity is now moving reasonably well, but her right leg remains very weak. PAST MEDICAL HISTORY: 1. History of bilateral breast cancer. She says that the initial right-sided cancer was before year 1999 and the second one was in 2008. She is presumptively cured after a right mastectomy, left lumpectomy and chemo and radiation therapy. 2. Arterial hypertension. 3. Dyslipidemia. SURGICAL HISTORY: Positive for breast surgery as above. SOCIAL HISTORY: The patient lives with her . She denies any history of alcohol, but she used to smoke about 40 years ago. 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 FAMILY HISTORY: Her brother had cerebrovascular accident. Mother had lung cancer and father Parkinson's disease. ALLERGIES: No known allergies. OUTPATIENT MEDICATIONS: Tylenol as needed, aspirin 325 mg daily, atorvastatin 10 mg daily and Lopressor 10 mg daily, furosemide 40 mg daily, potassium 10 mEq daily and verapamil 120 mg daily. REVIEW OF SYSTEMS: She denies any unusual events lately other than the right-sided weakness. She denies any fever, chills, nausea, vomiting, diarrhea. No chest pain, no palpitations. No shortness of breath. No abdominal pain. She typically does not get peripheral edema. PHYSICAL EXAMINATION: Mrs. Tadeo is an elderly obese female who appears to be in no distress and appears comfortable. Vital signs: Blood pressure 166/83, heart rate has been around 100, sinus rhythm. She is afebrile. Saturation 95-97% on room air. Weight is documented at 104.8 kg. She is alert and oriented and appropriate. Her jugular venous pressure (JVP) does not look high. Lungs are clear but air movement is fair. Heart exam reveals a regular rhythm. She has a murmur over the aortic valve area radiating to carotid arteries, approximately 3/6 intensity. I do not appreciate any distinct closing sound. I do not appreciate any diastolic murmur. No gallop. Abdomen is very obese but soft and nontender. Extremities are free of significant edema, though due to her obesity, she has a puffy appearance even though I cannot appreciate any dent made by pressure. Neurologically, there is distinct right-sided weakness that is more apparent on lower than upper extremity. LABORATORY: WBC count 9.8, hemoglobin 11.4, hematocrit 34, platelet count 295,000. Basic metabolic panel is normal but for glucose 95. Her INR was 1.1. The neuro imaging as per history of present illness: Carotid ultrasound revealed no significant carotid artery disease. There was MRA of the brain that also did not reveal any significant obstructive disease. ECG reveals presence of sinus tachycardia with occasional premature atrial contractions (PACs). There is no evidence for prior myocardial infarction (AL), but she does have incomplete right bundle branch block. An echocardiogram that was interpreted by myself yesterday revealed the presence of preserved left ventricle systolic function with ejection fraction (EF) estimated around 65-70%. There was mild left ventricular hypertrophy. Grade 1 diastolic dysfunction. Likely severe aortic stenosis (the valve was poorly seen, the mean gradient was 37 mmHg, but I believe that it was not properly captured and that the true gradient is even higher) and there was mild mitral stenosis. ASSESSMENT/PLAN: Mrs. Tadeo is an 83-year-old female who presented with ischemic stroke with several foci, suggestive of embolic etiology. She has been monitored on telemetry since admission and so far there have not been any arrhythmias. On echocardiogram, she has severe aortic stenosis and mild or [id number] mitral stenosis. As far as the management of stroke is concerned, I do agree that the embolic etiology seems likely. By far the most common source is indeed atrial fibrillation, but so far we have no evidence for it. I recommend to complete at least 72 hours of observation in the hospital. If no arrhythmias are detected, then I would even advocate for possibility of loop recorder implantation, that has the best accuracy in detecting the atrial fibrillation. This can be approached again tomorrow. In the interim, I would not recommend full anticoagulation, but obviously if atrial fibrillation is detected, then she will need to be fully anticoagulated. The second issue is that of valvular heart disease. She does have severe aortic stenosis, but she is quite asymptomatic but very sedentary. I had a long discussion with her and her regarding further management. I explained that she might be a candidate for transcatheter aortic valve replacement (TAVR). I explained what it involves and what is the prognosis of the disease without intervention. It is her preliminary decision not to pursue any further evaluation in this matter. Her underwent a valve replacement several years ago, so they are familiar with some basics of the process. It seems to me that her preference is to be comfortable. So at this point, there will not be any plan for any further testing in this matter. I told her that she could reconsider and explained that the typical symptoms are dyspnea, chest pain and syncope and if any of these should start occurring, she should report them promptly.
[2018-10-10 16:00] VITALS: BP 98/56
[2018-10-10 20:00] VITALS: BP 137/62
[2018-10-10] MEDS: ATORVASTATIN 20 MG TAB PO SCH (21:21)
[2018-10-11] VITALS (7 sets, daily range): BP systolic 99–132; BP diastolic 53–61
[2018-10-11 05:39] LABS: HEMATOCRIT 34.8 % (36.0-47.0); HEMOGLOBIN 11.4 g/dl (12.0-15.5); MEAN CORPUSCULAR HEMOGLOBIN 27.7 pg (27.0-33.0); MEAN CORPUSCULAR HGB CONC 32.8 g/dl (32.0-36.5); MEAN CORPUSCULAR VOLUME 84.5 fl (80.0-96.0); PLATELET COUNT, AUTOMATED 306 10^3/uL (150-450); RED BLOOD COUNT 4.12 10^6/uL (4.00-5.40); WHITE BLOOD COUNT 9.2 10^3/uL (4.0-10.0)
[2018-10-11 05:57] LABS: BLOOD UREA NITROGEN 13 MG/DL (7-18); CALCIUM LEVEL 8.6 MG/DL (8.8-10.2); CARBON DIOXIDE LEVEL 27 MEQ/L (21-32); CHLORIDE LEVEL 107 MEQ/L (98-107); GLOMERULAR FILTRATION RATE > 60.0 (>32); GLUCOSE, FASTING 100 MG/DL (70-100); POTASSIUM SERUM 3.9 MEQ/L (3.5-5.1); SODIUM LEVEL 141 MEQ/L (136-145)
[2018-10-11] MEDS: SLF 3 ML SYR IV SCH ×3 (06:03→22:00)
--- NOTE | 2018-10-11 08:41 | IPN ---
DATE: 10/11/2018 Ms. Tobias has had an uneventful night. She remained in sinus rhythm and review of telemetry monitoring reveals no ectopy. She has no specific complaints other than asking to go home and complaining about ongoing right-sided weakness. Vital Signs: Blood pressure 110/56. Heart rate in 60s and 70s. She is afebrile. Saturation 97%. Weight is 104.6. She is alert, oriented and appropriate. Her jugular venous pulse (JVP) is not high. Lungs are clear. Heart exam reveals a murmur best heard over the base, again about 3/6 intensity. The second sound sounds rather diminished. No gallop per se. Abdomen is very obese, but soft. Extremities have no significant edema. Peripheral pulses are palpable. There is ongoing right-sided weakness, a lot more prominent in the lower than the upper extremity. Laboratories: Hemoglobin 11.4, hematocrit 34.8, platelet count 306,000. Basic metabolic panel is normal. ASSESSMENT/PLAN: Ms. Tadeo is an 83-year-old female who presented with ischemic stroke very likely of embolic etiology. There is a relatively high suspicion for paroxysmal atrial fibrillation even though the patient denies any history of palpitations and telemetry monitoring did not reveal any ectopic beats at all. I talked to the patient about the risk of recurrent stroke and explained that we would typically pursue with implantation of a loop recorder, but she says that she does not want invasive measures. Consequently, I would suggest that she gets discharged home on a Holter monitor, but will continue only aspirin until we have some proof that she actually has atrial fibrillation. The second issue is aortic stenosis which is severe by echo. She does not have any symptoms corresponding to aortic stenosis. I had a long discussion with her and her yesterday and again I talked to her today. She continues to state that she is not interested in any invasive measures and consequently I do not find any further followup in this matter. MENA
--- NOTE | 2018-10-11 08:56 | CR ---
DATE OF CONSULTATION: 10/14/2018 REFERRING PROVIDER: Dr. Sammy Eldridge. REASON FOR CONSULTATION: Documented outpatient MRI showing embolic stroke. The patient is an 83-year-old female with past medical history significant for severe aortic stenosis newly diagnosed as well as history of bilateral breast cancer status post right mastectomy left lumpectomy, chemo and radiation therapy. The patient has history of hypertension, hyperlipidemia. She presents to [facility] after being admitted due to MRI evidence of embolic strokes involving the left frontal and right occipital lobe. The patient was complaining of right-sided hemiparesis ongoing for the last 2 weeks, she thinks. The patient at baseline cannot walk since 2011. She mostly sits in a wheelchair and has a Peri lift at home. The patient has been placed on aspirin 325 mg daily. She was managing language deficit or dysarthria, dysphasia. She denies any vertigo, dizziness or headache or chest pain, shortness of breath at this time. She states she is comfortable. The patient was seen by Dr. Beebe for cardiological evaluation. There is no objective evidence of atrial fibrillation at this time. She was recommended continuation of antiplatelet therapy and to consider loop recorder placement as an outpatient or consider Holter monitoring. The patient herself requested not to pursue any surgical options including loop recorder placement or aortic valve replacement. She is agreeable to continue with conservative medical management with aspirin, Lipitor and her ongoing treatment with verapamil enalapril. REVIEW OF SYSTEMS: 14-point review of systems obtained and is negative except as per HPI. ALLERGIES: None. FAMILY HISTORY: Brother with stroke. Father with Parkinson's disease. SOCIAL HISTORY: The patient denies use of any alcohol or illicit drugs. She is a former smoker. MEDICATIONS IN THE HOSPITAL: Aspirin 225 mg daily, Lipitor 40 mg daily, verapamil 120 mg daily, enalapril 10 mg daily, heparin subcu 5000 in unit every 12 hours. Small-vessel ischemic disease, old lacunar infarctions noted bilaterally. Left frontal acute stroke and right occipital acute stroke without any enhancement vascular ultrasound read as normal. MR angiogram read as no intracranial stenosis. PHYSICAL EXAMINATION: Blood pressure is 110/56, pulse rate 74, respiratory rate is 18, temperature is 97.6 degrees Fahrenheit oxygenation 97% on room air. Current height is 5' 5 1/2", current weight: 104.6 kg. The patient is awake, alert, oriented to person, place and time. Speech language comprehension and repetition are intact. Pupils are 3 mm round, reactive to light. Facial symmetry is preserved. V1, V2-V3 is intact to light touch. Tongue is midline. The patient can repeat. There is no dysarthria or aphasia. The patient has pronator drift of the right upper extremity. The patient has weakness in the right deltoid, biceps and triceps grade 4/5 left upper extremities 5/5 bilateral iliopsoas demonstrates 5- weakness, quadriceps are 4+ and tibialis anterior and right is 3- on the left is a 5. Sensory is intact to light touch in all four extremities. There is no gross ataxia or dysmetria on [id number] testing. Gait deferred. The patient cannot ambulate since 2011 and is usually wheelchair-bound ASSESSMENT: 1. Suspected embolic ischemic strokes with symptoms of right-sided hemiparesis occurring in the last couple weeks as per the patient. The patient agrees for aspirin 325 mg daily regimen with Lipitor 40 mg daily. The patient refuses at this point to have loop recorder placement or any surgery at the recommendations of cardiology. The patient is agreeable for Holter monitoring as an outpatient with Dr. Beebe. I recommend PT OT. Optimize hypertension, hyperlipidemia, evaluate for diabetes. FOLLOWUP: With cardiology as an outpatient. The patient can be seen in the neurology clinic in the next 6-8 weeks for followup.
[2018-10-11] MEDS: ENALAPRIL MALEATE 10 MG TAB PO SCH (09:33)
[2018-10-11] MEDS: VERAPAMIL 120 MG SR TAB PO SCH (09:34)
[2018-10-11] MEDS: SENOKOT S TAB PO SCH ×2 (09:34→20:40)
[2018-10-11] MEDS: MIRALAX *UNIT DOSE* 17GM PACKET PO SCH ×2 (09:34→20:41)
[2018-10-11] MEDS: ASPIRIN 325 MG TAB PO SCH (09:34)
[2018-10-11] MEDS: HEPARIN SOD (PORCINE) 5000 UNITS/ML VIAL SC SCH ×2 (09:34→20:40)
--- NOTE | 2018-10-11 12:20 | IPNPDOC ---
Subjective Date Seen The patient was seen on 10/11/18. Subjective Chief Complaint/HPI Patient resting in bed eating breakfast as I entered the room. She offers no complaints Constitutional: Denies: Chills, Fever Pulmonary: Denies: Dyspnea, Cough Cardiovascular: Denies: Chest Pain, Palpitations, Orthopnea, Edema Gastrointestinal: Denies: Nausea, Vomiting Psych: Reports: Mood Normal Objective Physical Examination General Exam: Positive: Alert, Cooperative, No Acute Distress Chest Exam: Positive: Clear to auscultation, Normal air movement; Negative: Rales, Rhonchi Heart Exam: Positive: Rate Normal Telemetry: Positive: No significant arrhythmia Abdomen Exam: Positive: Normal bowel sounds, Soft, Other (obese) Extremity Exam: Negative: Edema Assessment /Plan Problems (1) Cerebral infarction Status: Acute Response to Treatment: Stable Problem Specific Plan: Consult Specialist Problem Text: 10/11/18: ischemic stroke with several foci, suggestive of embolic etiology. She has been monitored on telemetry since admission and so far there have not been any arrhythmias. It has been recommended I recommend to complete at least 72 hours of observation in the hospital. Cardiology has been consulted and patient has declined evaluation with a loop recorder. She did agree to holter monitor as outpatient with Dr. Beebe. Neurology has also been consulted. Patient currently on aspirin 325 mg daily regimen with Lipitor 40 mg daily. PT and OT to continue to work with patient. At present she is not safe for discharge (2) Aortic stenosis, severe Status: Acute Response to Treatment: Stable Problem Specific Plan: Consult Specialist Problem Text: 10/11/18: Cardiology was consulted. Patient declines any interven tion (3) Mitral stenosis Response to Treatment: Stable Problem Specific Plan: Consult Specialist Problem Text: 10/11/18: Cardiology consulted. Patient has declined any intervention (4) Hypertension Status: Chronic Response to Treatment: Stable Plan/VTE VTE Prophylaxis Ordered?: Yes (Heparin ) VS, I&O, 24H, Fishbone Vital Signs/I&O Vital Signs Date Time Temp Pulse Resp B/P (MAP) Pulse Ox O2 Delivery O2 Flow Rate FiO2 10/11/18 09:34 88 106/56 10/11/18 08:00 96.9 18 95 10/08/18 20:22 Room Air I&O- Last 24 Hours up to 6 AM 10/11/18 06:00 Intake Total 920 ml Output Total 0 ml Balance 920 ml Laboratory Data 24H LABS Laboratory Tests 2 10/11/18 05:11: Nucleated Red Blood Cells % (auto) 0.0, Anion Gap 7L, Glomerular Filtration Rate > 60.0, Blood Urea Nitrogen 13, Creatinine 0.70, Sodium Level 141, Potassium Level 3.9, Chloride Level 107, Carbon Dioxide Level 27, Calcium Level 8.6L CBC/BMP Laboratory Tests 10/11/18 05:11 Red Blood Count 4.12, Mean Corpuscular Volume 84.5, Mean Corpuscular Hemoglobin 27.7, Mean Corpuscular Hemoglobin Concent 32.8, Red Cell Distribution Width 14.9 H, Calcium Level 8.6 L LLOYD JENNINGS Oct 11, 2018 10:02
[2018-10-11] MEDS: ATORVASTATIN 20 MG TAB PO SCH (20:40)
[2018-10-12 04:00] VITALS: BP 118/57
[2018-10-12 05:42] LABS: HEMATOCRIT 35.7 % (36.0-47.0); HEMOGLOBIN 11.8 g/dl (12.0-15.5); MEAN CORPUSCULAR HEMOGLOBIN 28.7 pg (27.0-33.0); MEAN CORPUSCULAR HGB CONC 33.1 g/dl (32.0-36.5); MEAN CORPUSCULAR VOLUME 86.9 fl (80.0-96.0); PLATELET COUNT, AUTOMATED 275 10^3/uL (150-450); RED BLOOD COUNT 4.11 10^6/uL (4.00-5.40); WHITE BLOOD COUNT 8.8 10^3/uL (4.0-10.0)
[2018-10-12 06:12] LABS: BLOOD UREA NITROGEN 11 MG/DL (7-18); CARBON DIOXIDE LEVEL 26 MEQ/L (21-32); CHLORIDE LEVEL 109 MEQ/L (98-107); CREATININE FOR GFR 0.61 MG/DL (0.55-1.30); GLOMERULAR FILTRATION RATE > 60.0 (>32); GLUCOSE, FASTING 94 MG/DL (70-100); SODIUM LEVEL 139 MEQ/L (136-145)
[2018-10-12] MEDS: SLF 3 ML SYR IV SCH (06:58)
[2018-10-12 08:00] VITALS: BP 98/54
[2018-10-12 08:30] VITALS: BP 100/58
[2018-10-12] MEDS: ASPIRIN 325 MG TAB PO SCH (08:30)
[2018-10-12] MEDS: SENOKOT S TAB PO SCH (08:31)
[2018-10-12] MEDS: MIRALAX *UNIT DOSE* 17GM PACKET PO SCH (08:31)
[2018-10-12] MEDS: HEPARIN SOD (PORCINE) 5000 UNITS/ML VIAL SC SCH (08:31)
[2018-10-12 09:59] VITALS: BP 100/58
[2018-10-12] MEDS: VERAPAMIL 120 MG SR TAB PO SCH (09:59)
[2018-10-12] MEDS: ENALAPRIL MALEATE 10 MG TAB PO SCH (09:59)
--- NOTE | 2018-10-12 16:18 | DS.PDOC ---
Discharge Summary General Date of Admission Oct 10, 2018 at 09:40 Date of Discharge 10/12/18 Primary Care Physician: JAMEL ELDRIDGE PA-C Attending Physician: Sammy Eldridge MD Specialist/Consultants Involve: Roman Beebe MD Discharge Summary PROCEDURES PERFORMED DURING STAY: ECHO CONCLUSIONS: 1. Study is of fair technical quality. 2. Normal left ventricular (LV) size with mild left ventricle hypertrophy (LVH), preserved LV systolic function and grade 1 diastolic dysfunction. 3. Probably severe aortic stenosis (mean gradient of 37, calculated aortic valve area 0.8 sq cm). Valve itself was poorly seen. 4. At least mild mitral stenosis. 5. Normal central venous pressure. 6. Unable to estimate pulmonary artery pressure. ADMITTING DIAGNOSES: 1. CVA 2. Aortic stenosis 3. Mitral stenosis 4. Hypertension COMPLICATIONS/CHIEF COMPLAINT: Cerebral Infacrtion. HISTORY OF PRESENT ILLNESS: 83 YOF was admitted after she had an outpatient imaging study that showed small acute infarcts in the distributed territory left frontal, right occipital region. Dr. Eldridge discussed the case with the radiologists who did not think metastatic disease was likely based upon the lack of enhancement. The patient's family was called and they agreed to bring her to the hospital to be admitted. She has no documented history of atrial fibrillation but the stroke is most consistent with an embolic event which statistically is most likely from occult atrial fibrillation. HOSPITAL COURSE: Patient was admitted to PCU for further evaluation with telemetry to evaluate for possible arrhythmias. Cardiology and neurology were co nsulted. Patient was monitored in hospital on telemetry for 72 hours. There were no arrhythmias noted during her hospital stay. She had an ECHO performed that demonstrated sever stenosis and mild or mild to moderate mitral stenosis. Findings on MRI and ECHO were discussed in detail with patient and her . Dr. Beebe explained that she might be a candidate for transcatheter aortic valve replacement (TAVR) discussing what it involves and what is the prognosis of the disease without intervention. Patient declined further evaluation and intervention. There was also a detailed discussion with patient and regarding further evaluation with a loop recorder to detect any heart arrhythm ias. Patient declined further evaluation with a loop recorder. She did agree to have a holter monitor performed. She also agreed to take ASA 325mg daily and continue her Lipitor. She was discharge home with services DISCHARGE MEDICATIONS: Please see below. ALLERGIES: Please see below. PHYSICAL EXAMINATION ON DISCHARGE: VITAL SIGNS: Please see below. GENERAL: In NAD HEENT: unremarkable NECK: soft, supple CARDIOVASCULAR EXAMINATION: RRR RESPIRATORY EXAMINATION: CTA ABDOMINAL EXAMINATION: obses,soft, non-tender, BS+ EXTREMITIES: no edema SKIN: warm, dry, no breakdown NEUROLOGICAL EXAMINATION: mild right sided weakness PSYCHIATRIC EXAMINATION: mood normal LABORATORY DATA: Please see below. IMAGING: Carotid U/S: Impression: There is no stenosis on the right on the left. MRI Brain: IMPRESSION: 1. 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 2. There are 2 foci of restricted diffusion in the left frontal white matter and a single right occipital white matter focus of restricted diffusion. This is consistent with small acute infarcts. 3. Metastatic disease may also demonstrate restricted diffusion. However, there is no evidence of enhancement which makes untreated metastatic disease much less likely. ACTIVITY: As tolerated DIET: 2gm Na+ DISCHARGE PLAN: Home with services. Arrangements need to be made for holter monitor to evaluate for possible a-fib DISCHARGE INSTRUCTIONS/ITEMS TO FOLLOWUP ON ON OUTPATIENT: 1. F/U with PCP in one week 2. Holter monitor (patient has declined loop recorder, she declines any intervention for aortic stenosis) DISCHARGE CONDITION: Stable Vital Signs/I&Os Vital Signs Date Time Temp Pulse Resp B/P (MAP) Pulse Ox O2 Delivery O2 Flow Rate FiO2 10/12/18 08:30 100/58 (72) 10/12/18 08:00 97.0 87 18 94 10/08/18 20:22 Room Air I&O- Last 24 Hours up to 6 AM 10/12/18 06:00 Intake Total 538 ml Output Total 0 ml Balance 538 ml Laboratory Data Labs 24H Laboratory Tests 2 10/12/18 05:24: Nucleated Red Blood Cells % (auto) 0.0, Anion Gap 4L, Glomerular Filtration Rate > 60.0, Blood Urea Nitrogen 11, Creatinine 0.61, Sodium Level 139, Potassium Level 4.0, Chloride Level 109H, Carbon Dioxide Level 26, Calcium Level 9.0 CBC/BMP Laboratory Tests 10/12/18 05:24 Red Blood Count 4.11, Mean Corpuscular Volume 86.9, Mean Corpuscular Hemoglobin 28.7, Mean Corpuscular Hemoglobin Concent 33.1, Red Cell Distribution Width 14.8 H, Calcium Level 9.0 Discharge Medications Scheduled Aspirin (Aspirin) 325 Mg Tablet, 325 MG PO DAILY, (Reported) Atorvastatin Calcium (Atorvastatin Calcium) 10 Mg Tab, 10 MG PO QPM, (Reported) Enalapril Maleate (Enalapril Maleate) 10 Mg Tablet, 10 MG PO DAILY, (Reported) Furosemide (Lasix) 40 Mg Tablet, 40 MG PO DAILY, (Reported) Potassium Chloride (Potassium Chloride) 10 Meq Tab.er.prt, 10 MEQ PO DAILY, (Reported) Verapamil HCl (Verapamil ER) 120 Mg Cap24h.pel, 120 MG PO DAILY, (Reported) Scheduled PRN Acetaminophen (Acetaminophen) 500 Mg Tablet, 1,000 MG PO Q6H PRN for PAIN, (Reported) Allergies Coded Allergies: No Known Allergies (Unverified , 07/30/18) LLOYD JENNINGS Oct 12, 2018 09:19
== END 2018-10-12 12:20 | disposition home health service (06) | DRG 65 ==
LOC: M ED 20:09 → M ED INP 20:10 → M PCU 10-09 00:38 → OBSVTOIN 10-10 09:40
PROVIDERS: ADMIT Internal Medicine; ATTEND Family Medicine
DX: I63.449 Cerebral infarction due to embolism of unspecified cerebellar artery (principal); I69.351 Hemiplegia and hemiparesis following cerebral infarction affecting right dominant side; I10 Essential (primary) hypertension; I48.0 Paroxysmal atrial fibrillation; I08.0 Rheumatic disorders of both mitral and aortic valves; Z79.899 Other long term (current) drug therapy; Z79.82 Long term (current) use of aspirin; Z85.3 Personal history of malignant neoplasm of breast; Z90.11 Acquired absence of right breast and nipple; Z87.891 Personal history of nicotine dependence; E78.5 Hyperlipidemia, unspecified; K59.00 Constipation, unspecified

== ENCOUNTER → 2018-10-08 | Outpatient (CLI) | payer MEDICARE ==
[~2018-10-08] MED LIST changes: +POTA10TA16 PO; +PROHANCE 279.3MG/ML 15ML VIAL (A9576) As Ordered ONE; +PROHANCE 279.3MG/ML 5ML VIAL (A9576) As Ordered ONE
--- NOTE | 2018-10-08 17:55 | REPVR ---
EXAM: MR Head Without and With Contrast EXAM DATE/TIME: 10/08/2018 5:14 PM CLINICAL HISTORY: 83 years old, female; Weakness, extremity; Right; Patient HX: HX breast CA; Additional info: Right side weakness TECHNIQUE: Imaging protocol: MR of the head without and with intravenous contrast. Contrast material: PROHANCE; Contrast volume: 20 ml; Contrast route: IV; COMPARISON: MRI-Brain without Contrast 01/09/2012 11:03 AM FINDINGS: Brain: There is volume loss. There is extensive hyperintense signal within the white matter. There are old white matter and basal ganglia lacunar infarcts. DWI 23 demonstrates a 12 mm focus of restricted diffusion in the left frontal white matter. Anterior to this is a 4 mm focus of restricted diffusion. On image 20 there is a 9 mm focus of restricted diffusion in the right occipital white matter. No enhancement is identified on postcontrast images. Ventricles: Ventricular dilatation probably on the basis of volume loss. Ventricular size is stable compared with prior scan. Bones/joints: Unremarkable. Soft tissues: Normal. Sinuses: Normal as visualized. No acute sinusitis. Mastoid air cells: Normal as visualized. No mastoid effusion. Orbits: Unremarkable. IMPRESSION: 1. 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 2. There are 2 foci of restricted diffusion in the left frontal white matter and a single right occipital white matter focus of restricted diffusion. This is consistent with small acute infarcts. 3. Metastatic disease may also demonstrate restricted diffusion. However, there is no evidence of enhancement which makes untreated metastatic disease much less likely. Electronically signed by: Vito Simmons On 10/08/2018 17:55:10 PM
--- NOTE | 2018-10-08 17:57 | REPVR ---
EXAM: MR Angiogram Head Without Contrast, Arteries EXAM DATE/TIME: 10/08/2018 5:14 PM CLINICAL HISTORY: 83 years old, female; Weakness; Additional info: Right side weakness TECHNIQUE: Imaging protocol: MR angiogram head without contrast. Exam focused on the arteries. COMPARISON: MRI-Brain without Contrast 01/09/2012 11:03 AM FINDINGS: Right internal carotid artery: Unremarkable. Intracranial segment is patent with no significant stenosis. No aneurysm. Right anterior cerebral artery: Unremarkable. No occlusion or significant stenosis. No aneurysm. Right middle cerebral artery: Unremarkable. No occlusion or significant stenosis. No aneurysm. Right posterior cerebral artery: There is a origin of the right posterior cerebral artery. No stenosis. No aneurysm. Right vertebral artery: Unremarkable. No occlusion or significant stenosis. No aneurysm. Left internal carotid artery: Unremarkable. Intracranial segment is patent with no significant stenosis. No aneurysm. Left anterior cerebral artery: Unremarkable. No occlusion or significant stenosis. No aneurysm. Left middle cerebral artery: Unremarkable. No occlusion or significant stenosis. No aneurysm. Left posterior cerebral artery: Unremarkable. No occlusion or significant stenosis. No aneurysm. Left vertebral artery: Unremarkable. No occlusion or significant stenosis. No aneurysm. Basilar artery: Unremarkable. No occlusion or significant stenosis. No aneurysm. IMPRESSION: No intracranial stenosis or occlusion. Electronically signed by: Vito Simmons On 10/08/2018 17:57:36 PM
== END ==
LOC: M RAD 15:19
PROVIDERS: ATTEND Physician Assistant
DX: R53.1 Weakness (principal); R94.02 Abnormal brain scan

== ENCOUNTER → 2018-10-12 | Outpatient (CLI) | payer MEDICARE ==
[~2018-10-12] MED LIST changes: +POTA10TA16 PO
--- NOTE | 2018-10-17 17:12 | HOLTMON ---
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 SINUS MECHANISM THROUGHOUT HR 62-121. RarE PVC 2 DIFFERNT MORPHOLOGIES MULTIPLE PACS IN SINGLETS,PAIRS, BIGENINY TRIGEMINY. STRIPS ON PAGE 18 AND 19 ARE LABELED A FIB PUT ACTUALLY ARE ATRIAL TRIGEMINY AND BIGEMINY. NO SIGNIFICANT ST CHANGES AVG QTC 463 MAX QTC 500 Electronically Signed on 10-17-2018 17:11:54 EDT by Chelsea Wang
== END ==
LOC: M EKG 12:32
PROVIDERS: ATTEND Internal Medicine Cardiovascular Disease
DX: I63.9 Cerebral infarction, unspecified (principal)

== ENCOUNTER 2018-11-08 11:41 | Outpatient (RCR) | payer MEDICARE | END 2018-11-15 | disposition home or self-care (01) | LOC: M PT 11:41 | PROVIDERS: ATTEND Family Medicine | DX: Z51.89 Encounter for other specified aftercare (principal); Z86.73 Personal history of transient ischemic attack (TIA), and cerebral infarction without residual deficits ==

== ENCOUNTER → 2018-12-16 | Outpatient (RCR) | payer MEDICARE | LOC: M PT 11-16 11:30 → M OT 11-23 11:02 → M PT 11-23 11:02 → M OT 11-25 11:11 → M PT 11-25 12:00 → M OT 11-30 11:47 → M PT 12-02 13:45 → M OT 12-07 11:15 → M PT 12-09 10:57 → M OT 12-14 11:15 → M PT 11:30 | PROVIDERS: ATTEND Family Medicine | DX: Z86.73 Personal history of transient ischemic attack (TIA), and cerebral infarction without residual deficits (principal); R53.1 Weakness ==

== ENCOUNTER 2018-12-30 12:00 | Outpatient (RCR) | payer MEDICARE | END 2019-01-15 | LOC: M PT 12:00 | PROVIDERS: ATTEND Family Medicine | DX: Z51.89 Encounter for other specified aftercare (principal); Z86.73 Personal history of transient ischemic attack (TIA), and cerebral infarction without residual deficits ==

== ENCOUNTER → 2019-03-04 | Outpatient (REF) | payer MEDICARE ==
[2019-03-04 13:40] LABS: HEMATOCRIT 42.1 % (36.0-47.0); HEMOGLOBIN 13.3 g/dl (12.0-15.5); MEAN CORPUSCULAR HEMOGLOBIN 26.8 pg (27.0-33.0); MEAN CORPUSCULAR HGB CONC 31.6 g/dl (32.0-36.5); MEAN CORPUSCULAR VOLUME 84.7 fl (80.0-96.0); PLATELET COUNT, AUTOMATED 266 10^3/uL (150-450); RED BLOOD COUNT 4.97 10^6/uL (4.00-5.40)
[2019-03-04 14:10] LABS: ALBUMIN 3.5 GM/DL (3.2-5.2); ALT/SGPT 14 U/L (12-78); BILIRUBIN,TOTAL 0.4 MG/DL (0.2-1.0); BLOOD UREA NITROGEN 14 MG/DL (7-18); CARBON DIOXIDE LEVEL 26 MEQ/L (21-32); CHLORIDE LEVEL 105 MEQ/L (98-107); CHOLESTEROL LEVEL 131 MG/DL (<200); CHOLESTEROL RISK RATIO 3.638 (<5); CREATININE FOR GFR 0.61 MG/DL (0.55-1.30); FREE T4 1.44 NG/DL (0.76-1.46); GLOMERULAR FILTRATION RATE > 60.0 (>32); GLUCOSE, FASTING 95 MG/DL (70-100); HDL CHOLESTEROL 36 MG/DL (>40); LDL CHOLESTEROL 70 MG/DL (<100); NON-HDL-C 95 MG/DL; POTASSIUM SERUM 3.9 MEQ/L (3.5-5.1); SODIUM LEVEL 141 MEQ/L (136-145); TOTAL PROTEIN 6.7 GM/DL (6.4-8.2); TRIGLYCERIDES LEVEL 124 MG/DL (<150)
== END ==
LOC: M SFHCADAM 11:03
PROVIDERS: ATTEND Physician Assistant
DX: I10 Essential (primary) hypertension (principal); I35.0 Nonrheumatic aortic (valve) stenosis; E55.9 Vitamin D deficiency, unspecified; Z86.73 Personal history of transient ischemic attack (TIA), and cerebral infarction without residual deficits
CPT/HCPCS: 80053; 80061; 82306; 84439; 84443; 85027; G0463

== ENCOUNTER → 2019-10-25 | Outpatient (REF) | payer MEDICARE ==
[~2019-10-25] MED LIST changes: +ENAL-36 PO; -ENAL10TA2 PO
[2019-10-25 15:52] LABS: HEMATOCRIT 38.8 % (36.0-47.0); HEMOGLOBIN 12.5 g/dl (12.0-15.5); MEAN CORPUSCULAR HEMOGLOBIN 28.7 pg (27.0-33.0); MEAN CORPUSCULAR HGB CONC 32.2 g/dl (32.0-36.5); MEAN CORPUSCULAR VOLUME 89.2 fl (80.0-96.0); PLATELET COUNT, AUTOMATED 245 10^3/uL (150-450); RED BLOOD COUNT 4.35 10^6/uL (4.00-5.40)
[2019-10-25 15:58] LABS: ALBUMIN 3.5 GM/DL (3.2-5.2); ALT/SGPT 16 U/L (12-78); BILIRUBIN,TOTAL 0.5 MG/DL (0.2-1.0); BLOOD UREA NITROGEN 18 MG/DL (7-18); CARBON DIOXIDE LEVEL 30 MEQ/L (21-32); CHLORIDE LEVEL 109 MEQ/L (98-107); CREATININE FOR GFR 0.64 MG/DL (0.55-1.30); GLOMERULAR FILTRATION RATE > 60.0 (>32); GLUCOSE, FASTING 88 MG/DL (70-100); POTASSIUM SERUM 4.6 MEQ/L (3.5-5.1); SODIUM LEVEL 144 MEQ/L (136-145); TOTAL PROTEIN 6.6 GM/DL (6.4-8.2)
== END ==
LOC: M LABDRWAD 12:25
PROVIDERS: ATTEND Physician Assistant
DX: I10 Essential (primary) hypertension (principal); E78.00 Pure hypercholesterolemia, unspecified

== ENCOUNTER → 2020-04-10 | Outpatient (REF) | payer MEDICARE, OTHER ==
[~2020-04-10] MED LIST changes: +HYDR-3490 PO; -HYDR25TAB PO
[2020-04-10 17:43] LABS: HEMATOCRIT 41.4 % (36.0-47.0); HEMOGLOBIN 13.3 g/dl (12.0-15.5); MEAN CORPUSCULAR HEMOGLOBIN 27.8 pg (27.0-33.0); MEAN CORPUSCULAR HGB CONC 32.1 g/dl (32.0-36.5); MEAN CORPUSCULAR VOLUME 86.4 fl (80.0-96.0); PLATELET COUNT, AUTOMATED 242 10^3/uL (150-450); RED BLOOD COUNT 4.79 10^6/uL (4.00-5.40); WHITE BLOOD COUNT 8.4 10^3/uL (4.0-10.0)
[2020-04-10 18:01] LABS: ALBUMIN 3.6 GM/DL (3.2-5.2); ALT/SGPT 16 U/L (12-78); BILIRUBIN,TOTAL 0.5 MG/DL (0.2-1.0); BLOOD UREA NITROGEN 12 MG/DL (7-18); CALCIUM LEVEL 9.3 MG/DL (8.8-10.2); CARBON DIOXIDE LEVEL 30 MEQ/L (21-32); CHLORIDE LEVEL 104 MEQ/L (98-107); CREATININE FOR GFR 0.69 MG/DL (0.55-1.30); FOLATE 10.1 NG/ML; FREE T4 1.53 NG/DL (0.76-1.46); GLOMERULAR FILTRATION RATE > 60.0 (>32); GLUCOSE, FASTING 93 MG/DL (70-100); POTASSIUM SERUM 4.5 MEQ/L (3.5-5.1); SODIUM LEVEL 141 MEQ/L (136-145); THYROID STIMULATING HORMONE 0.771 uIU/ML (0.358-3.740); TOTAL 25(OH) VITAMIN D 23.2 NG/ML (30.0-100.0); TOTAL PROTEIN 6.6 GM/DL (6.4-8.2); VITAMIN B12 LEVEL 467 PG/ML
== END ==
LOC: M SFHCADAM 13:56
PROVIDERS: ATTEND Physician Assistant
DX: E55.9 Vitamin D deficiency, unspecified (principal); I10 Essential (primary) hypertension; Z86.73 Personal history of transient ischemic attack (TIA), and cerebral infarction without residual deficits
CPT/HCPCS: 80053; 82306; 82607; 82746; 84439; 84443; 85027; G0463

== ENCOUNTER → 2022-07-23 | Outpatient (REF) | payer MEDICARE, OTHER ==
[~2022-07-23] MED LIST changes: -ENAL-36 PO; +ENAL1TAB50 PO; -KLOR10TA76 PO; +POTA-136 PO; +POTA-149 PO; -POTA10TA16 PO
[2022-07-23 17:33] LABS: BASO # 0.1 10^3/uL (0.0-0.2); BASO % 0.6 % (0.0-1.0); EOS # 0.2 10^3/uL (0.0-0.5); EOS % 2.6 % (0.0-3.0); HEMATOCRIT 38.9 % (36.0-47.0); HEMOGLOBIN 12.4 g/dl (12.0-15.5); LYMPH # 2.7 10^3/uL (1.5-5.0); LYMPH % 34.3 % (24.0-44.0); MEAN CORPUSCULAR HEMOGLOBIN 28.9 pg (27.0-33.0); MEAN CORPUSCULAR HGB CONC 31.9 g/dl (32.0-36.5); MEAN CORPUSCULAR VOLUME 90.7 fl (80.0-96.0); MONO # 0.5 10^3/uL (0.0-0.8); MONO % 6.5 % (2.0-8.0); NEUTROPHILS # 4.3 10^3/uL (1.5-8.5); NEUTROPHILS % 55.9 % (36.0-66.0); PLATELET COUNT, AUTOMATED 226 10^3/uL (150-450); RED BLOOD COUNT 4.29 10^6/uL (4.00-5.40); WHITE BLOOD COUNT 7.7 10^3/uL (4.0-10.0)
[2022-07-23 17:48] LABS: BLOOD UREA NITROGEN 16 MG/DL (9-23); CALCIUM LEVEL 8.6 MG/DL (8.3-10.6); CARBON DIOXIDE LEVEL 29 MMOL/L (20-31); CHLORIDE LEVEL 107 MMOL/L (98-107); GLOMERULAR FILTRATION RATE > 60.0 (>32); GLUCOSE, FASTING 93 MG/DL (74-106); POTASSIUM SERUM 4.5 MMOL/L (3.5-5.1); SODIUM LEVEL 143 MMOL/L (136-145)
== END ==
LOC: M SFHCADAM 11:43
PROVIDERS: ATTEND Physician Assistant
DX: R30.0 Dysuria (principal)

== ENCOUNTER → 2023-01-07 | Outpatient (REF) | payer MEDICARE, OTHER ==
[~2023-01-07] MED LIST changes: +ATOR40TA75 PO; +CEFD300C42 PO; +COLA100C5 PO; +DOXY100T PO; +MUCI600T31 PO
[2023-01-07 18:01] LABS: BLOOD UREA NITROGEN 25 MG/DL (9-23); CARBON DIOXIDE LEVEL 29 MMOL/L (20-31); CHLORIDE LEVEL 102 MMOL/L (98-107); CREATININE FOR GFR 0.57 MG/DL (0.55-1.30); GLOMERULAR FILTRATION RATE > 60.0 (>32); GLUCOSE, FASTING 100 MG/DL (74-106); SODIUM LEVEL 138 MMOL/L (136-145)
== END ==
LOC: M SFHCADAM 17:17
PROVIDERS: ATTEND Physician Assistant
DX: I35.0 Nonrheumatic aortic (valve) stenosis (principal)